=== PATIENT | female | born 1975 | race Caucasian/White ===

== ENCOUNTER → 2016-02-19 | Outpatient (CLI) | payer OTHER ==
[~2016-02-19] MED LIST: METO25TA3 PO; NORC5TAB PO; OSCA200T PO; OXYC1TAB63 PO; OYST250T4 PO; PANT40TA3 PO; PRED10 PO; PRED20 PO; TRIAM.1%T TOPICAL; VALT500T PO
--- NOTE | 2016-02-21 17:41 | HM ---
Date Performed: 02/19/2016 Time Performed: 09:28:00 HOOKUP DATE: 02/19/16 09:28:00 AM Wed ANALYSIS START TIME: 02/19/2016 9:33:00 AM ANALYSIS END TIME: 02/20/2016 8:15:40 AM PATIENT AGE: 40 PATIENT HEIGHT PATIENT WEIGHT DRUG LIST PATIENT DIAGNOSIS: SYNCOPE TEST NARRATIVE: The patient's average heart rate was 82 BPM. Heart rates greater than 120 B PM were noted < 1% of the time. No episodes of bradycardia were noted. No pauses exceeding 2.0 s econds were noted. 1 ventricular ectopics, which represented < 1% of the total beat count, were n oted. The highest ventricular ectopic frequency occurred from 05:00 AM to 06:00 AM Toyin. During this time 1 VE(s) occurred. Ventricular ectopics were observed as 1 isolated beat(s) only. No couplets or runs were noted. 3 supraventricular ectopics, which represented < 1% of the total beat count, were noted. The highest supraventricular ectopic frequency occurred from 07:00 PM to 08:00 PM Wed. During this time 1 SVE(s) occurred. No episodes of ST depression (defined as -1.0 mm or more) wer e noted in channel 1. No episodes of ST depression (defined as -1.0 mm or more) were noted in channe l 2. No episodes of ST depression (defined as -1.0 mm or more) were noted in channel 3. TEST INTERPRETATION: Predominant rhythm throughout was normal Sinus rhythm . There were occasional PACs and PVCs. No ventricular runs, pauses were atrial fibrillation and was a ppreciated No diary entries of any cardiac complaints were provided. Signed by : Martha Moser
== END ==
LOC: HCAV 09:13
PROVIDERS: ATTEND Family Medicine
DX: R55 Syncope and collapse (principal)
CPT/HCPCS: 93225; 93226

== ENCOUNTER 2016-03-12 20:24 | Inpatient (IN) | payer OTHER ==
[2016-03-12] MEDS ORDERED: traMADol HCL 50 MG TAB PO PRN (22:15)
[2016-03-12] MEDS ORDERED: methylPREDNISolone SOD SUCC 40 MG/1 ML VIAL IV PUSH ONE (22:15)
--- NOTE | 2016-03-12 22:19 | HHI.HP ---
HPI Service [facility] Hospitalists Primary Care Physician Tani Massey MD Admission Diagnosis Persistent dermatitis Chief Complaint: painful rash, failed outpt tx Travel History International Travel<30 Days: No Contact w/Intl Traveler <30 Da: No History of Present Illness 40 y.o. relatively healthy female presents for direct admit under direction of Dr Jaramillo who is familiar with pt and her recent illness/rash. Patient reportedly developed a rash approximately 1 week ago which started as a couple of small red spots on her left forearm. This rash spread and by this past Wednesday was noted to have significant clusters of erythema which were slightly painful. She was started on clindamycin and prednisone 40 mg a day by her primary care physician Dr. Paris. She notes that she had some improvement initially with lesions starting to dry somewhat but over the last 2 days the lesions have become more red and painful and swollen. She notes a burning type pain with even light touch from her clothing to the lesions. She notes that the lesions are on her upper arms upper chest and upper back and upper thighs primarily. She denies any new local exposures such as detergents, soaps, perfumes. No new clothing or jewelry. No new pet exposures. No tick exposure. No one in her home has similar lesions. She has some slight joint pains but no significant polyarthropathy. She tells me that her immunizations are all up-to-date that does not think she had chickenpox as a child. He has not noted any lesions in her mouth or around her perianal or groin areas. No vaginal discharge. She has had a low-grade fever of up to 100 on a few occasions over the last few days. No recent foreign travel. She did go to the [place] around the first of the year but others in her family did as well and they have no rashes noted. Review of Systems Constitutional: COMPLAINS OF: Fever, DENIES: Diaphoretic episodes, Fatigue, Weight gain, Weight loss, Chills, Dizziness, Change in appetite, Night Sweats Eyes: DENIES: Blurred vision, Diplopia, Eye inflammation, Eye pain, Vision loss , Photosensitivity, Double Vision Ears, nose, mouth, throat: DENIES: Tinnitus, Hearing loss, Vertigo, Nasal discharge, Oral lesions, Throat pain, Hoarseness, Ear Pain, Running Nose, Epistaxis, Sinus Pain, Toothache, Odynophagia Respiratory: DENIES: Apneas, Cough, Snoring, Wheezing, Hemoptysis, Sputum production, Shortness of breath Cardiovascular: DENIES: Chest pain, Palpitations, Syncope, Dyspnea on Exertion , PND, Lower Extremity Edema, Orthopnea, Claudication Gastrointestinal: DENIES: Abdominal pain, Black stools, Bloody stools, BRB per rectum, Constipation, Diarrhea, GERD, Nausea, Reflux, Vomiting, Difficulty Swallowing, Anorexia, See HPI Genitourinary: DENIES: Abnormal vaginal bleeding, Dysmenorrhea, Dyspareunia, Sexual dysfunction, Urinary frequency, Urinary incontinence, Urgency, Hematuria , Dysuria, Nocturia, Vaginal discharge Musculoskeletal: COMPLAINS OF: Joint pain, DENIES: Muscle aches, Stiffness, Joint Swelling, Back pain, Neck pain Integumentary: COMPLAINS OF: Pruritus, Rash, DENIES: Abnormal pigmentation, Nail changes, Breast masses, Breast skin changes, Nipple discharge Hematologic/lymphatic: DENIES: Bruising, Lymphadenopathy Immunologic/allergic: DENIES: Eczema, Urticaria Neurologic: DENIES: Abnormal gait, Headache, Localized weakness, Paresthesias, Seizures, Speech Problems, Tremor, Poor Balance Psychiatric: COMPLAINS OF: Anxiety Past Family Social History Past Medical History Lyme dz as young child. Denies ever having chicken pox. recent knee injury o/w essentially negative Past Surgical History none Reported Medications clindamycin prednisone started w/i last week Allergies: Coded Allergies: No Known Allergies (Unverified , 02/10/16) Family History n/c Social History No tobacco Occasional EtOH (once per month or less) No illicits , 3 young boys (ages 5, 4 and 2 1/2) moved to [facility] at age 20 from [place] Physical Exam Physical Exam GENERAL: This is a well-nourished, slightly obese, well-developed patient who appears mildly anxious SKIN: erythematous clusters of vesiculations on upper arms, upper chest, upper back and thighs...appears to spare abdomen, groin, lower back. No sloughing of skin. Areas are quite TTP. HEAD: Atraumatic. Normocephalic. No temporal or scalp tenderness. No oral lesions EYES: Pupils equal round and reactive. Extraocular motions intact. No scleral icterus. No injection or drainage. ENT: Nose without bleeding, purulent drainage or septal hematoma. Throat without erythema, tonsillar hypertrophy or exudate. Uvula midline. Airway patent. NECK: Trachea midline. No JVD or lymphadenopathy. Supple, nontender, no meningeal signs. CARDIOVASCULAR: Regular rate and rhythm without murmurs, gallops, or rubs. RESPIRATORY: Clear to auscultation. Breath sounds equal bilaterally. No wheezes , rales, or rhonchi. GASTROINTESTINAL: Abdomen soft, non-tender, nondistended. No hepato-splenomegaly , or palpable masses. No guarding. MUSCULOSKELETAL: Extremities without clubbing, cyanosis, or edema. Right knee with slight effusion and brace in place. No calf tenderness. NEUROLOGICAL: Awake and alert. Cranial nerves II through XII intact. Motor and sensory grossly within normal limits. Five out of 5 muscle strength in all muscle groups. Normal speech. Assessment and Plan Problem List: (1) Herpetiformis dermatitis Status: Acute Plan: ? etiology. Will obtain Tzanck prep from lesions on arms. Check studies for VZV, EBV, CMV. Start gabapentin, valtrex, steroid. Will use doxy for secondary infection prevention. (2) Right knee sprain Status: Acute Plan: continue brace and following with Dr Zaragoza Code Status full Discussed Condition With patient and nurse Sammy Mosher PhD Mar 12, 2016 22:19
[2016-03-12 22:30] LABS: BLOOD, URINE NEG (NEG); COMMENT (UR) CULT NOT INDICATED; CULTURE IF INDICATED CULT NOT INDICATED; GLUCOSE,URINE NEG (NEG); KETONE, URINE NEG (NEG); MUCUS URINE FEW /lpf (OCC); NITRITE,URINE NEG (NEG); PH, URINE 5.5 (5.0-8.5); SQUAMOUS EPITHELIAL CELL URINE 3 /hpf (0-5); URINE COLOR YELLOW (YELLW/STRAW)
[2016-03-12] MEDS ORDERED: LORazepam 1 MG TAB PO PRN (22:30)
[2016-03-13 00:14] VITALS: BP 105/57; PULSE 83; RESP 18; TEMP 98.4; O2SAT 95
[2016-03-13] MEDS: DOXYCYCLINE HYCLATE 100 MG CAP PO SCH ×3 (00:31→21:24)
[2016-03-13] MEDS: valACYclovir HCL 500 MG TAB PO SCH ×3 (00:31→21:25)
[2016-03-13 05:27] LABS: AUTOMATED NEUTROPHIL # 7.8 TH/MM3 (1.8-7.7); BASOPHIL # 0.1 TH/MM3 (0-0.2); BASOPHIL % 0.5 % (0.0-2.0); EOSINOPHIL # 0.2 TH/MM3 (0-0.4); EOSINOPHIL % 1.6 % (0.0-4.0); HEMATOCRIT 38.5 % (35.0-46.0); HEMO FLAGS DIFF FINAL; LYMPH % 16.6 % (9.0-44.0); LYMPHOCYTE # 1.7 TH/MM3 (1.0-4.8); MEAN CELL VOLUME 85.4 FL (80.0-100.0); MEAN CORPUSCULAR HEMOGLOBIN 30.2 PG (27.0-34.0); MEAN CORPUSCULAR HGB CONC 35.4 % (32.0-36.0); MONO % 3.8 % (0.0-8.0); NEUT % 77.5 % (16.0-70.0); PLATELET COUNT 274 TH/MM3 (150-450); RED BLOOD COUNT 4.51 MIL/MM3 (4.00-5.30); RED CELL DISTRIBUTION WIDTH 12.5 % (11.6-17.2); WHITE BLOOD COUNT 10.1 TH/MM3 (4.0-11.0)
[2016-03-13 05:57] LABS: ALKALINE PHOSPHATASE 79 U/L (45-117); ALT (GPT) 31 U/L (10-53); ANION GAP 7 MEQ/L (5-15); AST (GOT) 9 U/L (15-37); BICARBONATE 25.1 MEQ/L (21.0-32.0); BLOOD UREA NITROGEN 16 MG/DL (7-18); CHLORIDE 106 MEQ/L (98-107); GLOMERULAR FILTRATION RATE 70 ML/MIN (>89); POTASSIUM 4.1 MEQ/L (3.5-5.1); SODIUM (NA) 138 MEQ/L (136-145); TOTAL BILIRUBIN ADULT 0.4 MG/DL (0.2-1.0)
[2016-03-13] MEDS ORDERED: methylPREDNISolone SOD SUCC 125 MG/2 ML VIAL IV PUSH STA (07:17)
[2016-03-13] MEDS: GABAPENTIN 100 MG CAP PO SCH ×3 (08:07→18:18)
--- NOTE | 2016-03-13 08:09 | HHI.PR ---
Subjective Remarks Pt c/o severe pain primarily in shoulder where rash/blisters are present. she was admitted overnight after failed outpt rx of her rash/blisters she feels the lesions/blisters are progressing and new ones on her legs this AM Objective Vitals upper back with crops of vesicles/red base some nodular and maculopapular lesions which are red/inflammatory. the upper ext lesions currently are not vesicular/bullous but mostly papular and tender. she has some resolving macular lesions over ant neck some smaller nonvesicular/papular type lesions on arms/legs heart reg neck no jvd or bruits no oral mucosa or eye involvement. pt denies genital involvement. right knee brace. Vital Signs Date Time Temp Pulse Resp B/P Pulse Ox O2 Delivery O2 Flow Rate FiO2 03/13/16 00:14 98.4 83 18 105/57 95 Result Diagram: 03/13/16 0501 03/13/16 0501 A/P Problem List: (1) Rash and nonspecific skin eruption Status: Acute Plan: Pt developed rapidly progressive rash/blisters/bullae around 03/05-03/06 The rash involved the arms but progressed to ant chest/upper back and later thigh/legs. the lesions progressed and have had multiple forms. she has had areas of smaller vesicles clustered on red base. some areas initially of larger blisters or small bullae that ruptured. no sloughing sking or oral/eye lesions. she had larger tender welt like or nodular erythematous lesion over upper back that later became more target like. no pustules identified -she failed outpt therapy with bendadryl/prednisone/clinda. -extensive hx taken and no clear culprit. no meds, diseases, exposures, or pertinent travel -The working dx is likely viral(herpetic..?varicella)..leading to erythema multiforme. admit for iv steroids. cont emperic abx to cover skin ca-mrsa as some lesions may have been secondarily infected. valtrex was ordered as some lesions appear to be in the herpes family. pt with no hx varicella. gabapentin for severe pain that seems neuropathic a lesion was scraped by nursing and sent for herpes viral cx. and serology for varicella/ebv/cmv was sent last night esr and tsh ordered. gustavo also. prn pain control long talk with pt/. they agreed to proceed with skin punch bx. this was performed by 5mm punch and suture placed left arm by dr Urbina. observe for improvement. Bay Jaramillo MD Mar 13, 2016 08:09
[2016-03-13 08:15] VITALS: BP 105/74; PULSE 76; RESP 20; TEMP 97.7; O2SAT 95
[2016-03-13] MEDS ORDERED: ONDANSETRON HCL 4 MG/2 ML VIAL IV PUSH PRN (08:15)
[2016-03-13] MEDS ORDERED: CALAMINE LOTION 180 APPLIC/180 ML BTL TOPICAL SCH (09:00)
[2016-03-13 11:53] VITALS: BP 108/64; PULSE 105; RESP 20; TEMP 98.1; O2SAT 95
[2016-03-13] MEDS: methylPREDNISolone SOD SUCC 125 MG/2 ML VIAL IV PUSH SCH ×3 (13:39→23:52)
[2016-03-13] MEDS: ACETAMINOPHEN/HYDROcodone 325 MG/5 MG TAB PO PRN ×2 (13:40→23:51)
[2016-03-13] MEDS ORDERED: LIDOCAINE 0.5%/EPINEPHrine 1:200,000 SOLN 50 ML VIAL INFIL ONE (14:30)
[2016-03-13 16:05] VITALS: BP_SYST 112; BP_SYST 114; BP_SYST 140; BP_DIAS 63; BP_DIAS 65; BP_DIAS 74; PULSE 112; RESP 20; TEMP 98.4; O2SAT 95
--- NOTE | 2016-03-13 17:23 | RADRPT ---
EXAM DATE/TIME: 03/13/2016 16:50 [facility] COMPARISON: No previous studies available for comparison. INDICATIONS : Vertigo. TIA. MEDICAL HISTORY : None. SURGICAL HISTORY : None. ENCOUNTER: Initial ACUITY: 2 day PAIN SCORE: 0/10 LOCATION: Head TECHNIQUE: Multiplanar, multisequence MRI of the brain was performed without contrast. FINDINGS: CEREBRUM: The ventricles are normal for age. No evidence of midline shift, mass lesion, hemorrhage or acute in farction. No extraaxial fluid collections are seen. The pituitary gland and suprasellar cistern are normal in configuration. WHITE MATTER: No significant signal abnormalities are seen in the white matter. POSTERIOR FOSSA: The cerebellum and brainstem are intact. The 4th ventricle is midline. The cerebellopontine angle is unremarkable. The cerebellar tonsils are normal in position. DIFFUSION IMAGING: No focal areas of restricted diffusion are seen. No evidence of acute infarction. EXTRACRANIAL: The visualized portions of the orbits and paranasal sinuses are unremarkable. CONCLUSION: 1. No acute intracranial abnormality identified. Los Wren MD on March 13, 2016 at 17:18 Board Certified Radiologist. This report was verified electronically.
[2016-03-13 20:00] VITALS: PULSE 91
[2016-03-13 20:17] VITALS: BP 125/66; PULSE 92; RESP 19; TEMP 98; O2SAT 95
[2016-03-14] VITALS (7 sets, daily range): BP systolic 95–112; BP diastolic 54–70; PULSE 68–97; RESP 12–20; TEMP 97.4–99.1; O2SAT 94–98
[2016-03-14 04:30] LABS: BICARBONATE 24.4 MEQ/L (21.0-32.0); POTASSIUM 4.5 MEQ/L (3.5-5.1)
[2016-03-14] MEDS: methylPREDNISolone SOD SUCC 125 MG/2 ML VIAL IV PUSH SCH ×3 (07:27→16:55)
[2016-03-14] MEDS: DOXYCYCLINE HYCLATE 100 MG CAP PO SCH (08:14)
[2016-03-14] MEDS: GABAPENTIN 300 MG CAP PO SCH ×3 (08:14→16:54)
[2016-03-14] MEDS: valACYclovir HCL 500 MG TAB PO SCH ×2 (08:14→20:18)
[2016-03-14 08:53] LABS: EBV VCA IgM Negative (Negative)
--- NOTE | 2016-03-14 11:38 | HHI.PR ---
Subjective Remarks seems to feel better this AM. less aching in shoulders and thighs. slept well overnight. no n/v/d reported. no fever/chills reported. Objective Vitals upper back with crops of vesicles/red base improved some nodular and maculopapular lesions which are red/inflammatory. the upper ext lesions currently are not vesicular/bullous but mostly papular and tender. she has some resolving macular lesions over ant neck some smaller nonvesicular/papular type lesions on arms/legs heart reg neck no jvd or bruits no oral mucosa or eye involvement. pt denies genital involvement. right knee brace. Result Diagram: 03/13/16 0501 03/14/16 0351 A/P Problem List: (1) Rash and nonspecific skin eruption Status: Acute Plan: Pt developed rapidly progressive rash/blisters/bullae around 03/05-03/06 The rash involved the arms but progressed to ant chest/upper back and later thigh/legs. the lesions progressed and have had multiple forms. she has had areas of smaller vesicles clustered on red base. some areas initially of larger blisters or small bullae that ruptured. no sloughing skin or oral/eye mucosa lesions. she had larger tender welt like or nodular erythematous lesion over upper back that later became more target like. no pustules identified -she failed outpt therapy with bendadryl/prednisone/clinda. -extensive hx taken and no clear culprit. no meds, diseases, exposures, or pertinent travel -gustavo negative -The working dx is likely viral(herpetic..?varicella)..leading to erythema multiforme. admitted for iv steroids. cont emperic abx to cover skin ca-mrsa as some lesions may have been secondarily infected. valtrex was ordered as some lesions appear to be in the herpes family. pt with no hx varicella. gabapentin for severe pain that seems neuropathic will add topical medium potency steroid ointment a lesion was scraped by nursing and sent for herpes viral cx. and serology for varicella/ebv/cmv at time of admission prn pain control punch bx left arm lesion 03/13 pending (2) Transient neurologic deficit Status: Acute Plan: Pt and report a recent hx of episodes of blank staring/ unresponsiveness and even apparent syncope at times. she has had some intermittent h/a's. she does describe intermittent palpitations but may or may not correlate with the neurological events. During my evaluation 03/13 pt had a brief episode. while lying back in her hospital bed.. she stopped talking and her head drooped down and to the right. she was nonverbal when I repeatedly asked her to respond. some tears in her eyes. this lasted for about 30-60 seconds. when she finally began to respond she says that she heard everything but was unable to formulate a verbal response. I witnessed no obvious convulsion or eye fluttering. no post ictal sx's. she had recent holter by pcp to evaluate this. this was read as mostly sinus with pac's/pvcs mri head last night was negative eeg pending. orthostatics negative pt/ inquired about tilt table test tele: overnight around 11pm she had alot of tachycardia on the monitor. I questioned svt/aflutter. I reviewed with strips with [facility] digital media producer and only felt to be sinus/atrial tach. Bay Jaramillo MD Mar 14, 2016 11:38
[2016-03-14] MEDS ORDERED: TRIAMCINOLONE ACETONIDE 0.1% OINT 15 GM TUBE TOPICAL ONE (14:00)
[2016-03-14] MEDS: TRIAMCINOLONE ACETONIDE 0.1% OINT 15 GM TUBE TOPICAL SCH (16:56)
--- NOTE | 2016-03-14 17:48 | MG ---
cc: EDD ATKINSON M.D. Lab No: Date: 03/14/2016 Age: 40 Sex: F Race: REQUESTING PHYSICIAN: Dr. Jaramillo. HISTORY: An EEG was obtained on this 40-year-old patient with history of episodic unresponsiveness and possible seizures. MEDICATIONS: 1. Solu-Medrol. 2. Meade. 3. . 4. Valtrex. DESCRIPTION OF THE RECORD: The patient is initially awake and there is a combination of alpha and beta rhythms. The background rhythms are symmetrical and reactive. The patient enters sleep and there is some theta activity and more widespread beta rhythms. Hyperventilation disclosed no significant change. Later on there is sleep stage II. Sleep spindles and K complexes noted. Photic stimulation unremarkable. INTERPRETATION: Normal awake and light asleep EEG. Edd Atkinson MD [facility] /5:39 PM /5:44 PM
[2016-03-14] MEDS: ENOXAPARIN SODIUM 40 MG/0.4 ML SYRINGE SQ SCH (20:18)
[2016-03-15] VITALS: BP_SYST 101; BP_SYST 117; BP_DIAS 56; BP_DIAS 58; PULSE 83; PULSE 95; RESP 18; RESP 20; TEMP 98.2; TEMP 98.3; O2SAT 95; O2SAT 96
[2016-03-15] MEDS: methylPREDNISolone SOD SUCC 125 MG/2 ML VIAL IV PUSH SCH ×4 (00:12→18:17)
[2016-03-15] MEDS: ACETAMINOPHEN/HYDROcodone 325 MG/5 MG TAB PO PRN ×2 (00:13→16:19)
[2016-03-15] MEDS: TRIAMCINOLONE ACETONIDE 0.1% OINT 15 GM TUBE TOPICAL SCH ×4 (00:15→18:00)
[2016-03-15] MEDS: valACYclovir HCL 500 MG TAB PO SCH ×2 (07:52→21:45)
[2016-03-15] MEDS: GABAPENTIN 300 MG CAP PO SCH ×3 (07:52→18:16)
[2016-03-15 08:00] VITALS: BP 120/72; PULSE 86; RESP 14; TEMP 98.1; O2SAT 96
[2016-03-15 12:00] VITALS: BP 110/68; PULSE 78; RESP 16; TEMP 98.4; O2SAT 97
--- NOTE | 2016-03-15 15:16 | HHI.PR ---
Subjective Remarks shoulder lesions seem better with ointment. says feels new lesions on post arms and maybe thighs Objective Vitals upper back with crops of vesicles/red base improved some maculopapular lesions which are red/inflammatory seem better the upper ext lesions currently are not vesicular/bullous but mostly papular and tender. she has some resolving macular lesions over ant neck some smaller nonvesicular/papular type lesions on arms/legs heart reg neck no jvd or bruits no oral mucosa or eye involvement. pt denies genital involvement. right knee brace. Vital Signs Date Time Temp Pulse Resp B/P Pulse Ox O2 Delivery O2 Flow Rate FiO2 03/15/16 12:00 98.4 78 16 110/68 97 03/15/16 08:00 98.1 86 14 120/72 96 03/15/16 00:00 98.2 95 18 101/56 96 03/14/16 20:03 86 03/14/16 20:00 97.4 95 18 112/68 95 03/14/16 16:00 99.1 80 14 112/59 95 03/14/16 03/14/16 03/15/16 15:00 23:00 07:00 Intake Total 1200 ml 360 ml 240 ml Output Total 400 ml Balance 1200 ml 360 ml -160 ml Intake Oral 1200 ml 360 ml 240 ml IV Total 0 ml Output Urine Total 400 ml # Voids 6 1 # Bowel Movements 0 0 0 Result Diagram: 03/13/16 0501 03/14/16 0351 A/P Problem List: (1) Rash and nonspecific skin eruption Status: Acute Plan: Pt developed rapidly progressive rash/blisters/bullae around 03/05-03/06 The rash involved the arms but progressed to ant chest/upper back and later thigh/legs. the lesions progressed and have had multiple forms. she has had areas of smaller vesicles clustered on red base. some areas initially of larger blisters or small bullae that ruptured. no sloughing skin or oral/eye mucosa lesions. she had larger tender welt like or nodular erythematous lesion over upper back that later became more target like. no pustules identified -she failed outpt therapy with bendadryl/prednisone/clinda. -extensive hx taken and no clear culprit. no meds, diseases, exposures, or pertinent travel -gustavo negative -The working dx is likely viral(herpetic..?varicella)..leading to erythema multiforme. admitted for iv steroids. d/c emperic abx to cover skin ca-mrsa. currently no obvious bacterial superinfection valtrex was ordered as some lesions appear to be in the herpes family. pt with no hx varicella. gabapentin for severe pain that seems neuropathic added topical medium potency steroid ointment...seems to be working. will observe a lesion was scraped by nursing and sent for herpes viral cx. and serology for varicella/ebv/cmv at time of admission prn pain control punch bx left arm lesion 03/13 pending recheck later today.....will plan for d/c later today or in AM...will call her pcp for f/u. (2) Transient neurologic deficit Status: Acute Plan: Pt and report a recent hx of episodes of blank staring/ unresponsiveness and even apparent syncope at times. she has had some intermittent h/a's. she does describe intermittent palpitations but may or may not correlate with the neurological events. During my evaluation 03/13 pt had a brief episode. while lying back in her hospital bed.. she stopped talking and her head drooped down and to the right. she was nonverbal when I repeatedly asked her to respond. some tears in her eyes. this lasted for about 30-60 seconds. when she finally began to respond she says that she heard everything but was unable to formulate a verbal response. I witnessed no obvious convulsion or eye fluttering. no post ictal sx's. she had recent holter by pcp to evaluate this. this was read as mostly sinus with pac's/pvcs mri head was negative eeg no epileptiform waves orthostatics negative pt/ inquired about tilt table test. if sx's persist she could be referred to [facility] cardiology tele: over past 48hr has shows muliple periods of tachycardia..?could be just sinus tach but svt/aflutter were questioned.. I reviewed with strips with [facility] sales development consultant and only felt to be sinus/atrial tach. will request consult prior to d/c ?neurocognitive sx's related to mental stress (3) Tachycardia Status: Acute Plan: pt has had multiple periods of tachycardia up to 150 this seems to occur even at rest could be sinus tach but I questioned if could be underying aflutter/svt will request cardiology evaluate in AM prior to d/c given her recent c/o intermittent dizziness and even syncope. (4) Right knee sprain Status: Chronic Plan: pt fell off skateboard. has dx of right knee sprain. follows with dr Zaragoza has right knee brace Bay Jaramillo MD Mar 15, 2016 15:16
[2016-03-15 16:00] VITALS: BP 108/64; PULSE 76; RESP 14; TEMP 97.9; O2SAT 98
[2016-03-15 19:46] VITALS: PULSE 80
[2016-03-15 20:00] VITALS: BP 116/63; PULSE 82; RESP 20; TEMP 98.4; O2SAT 98
[2016-03-15] MEDS: ENOXAPARIN SODIUM 40 MG/0.4 ML SYRINGE SQ SCH (21:45)
--- NOTE | 2016-03-15 23:48 | RADRPT ---
EXAM DATE/TIME: 03/15/2016 22:09 [facility] COMPARISON: No previous studies available for comparison. INDICATIONS : Right leg swelling and pain. MEDICAL HISTORY : . Right knee injury. Anxiety. Skin rash. SURGICAL HISTORY : None. ENCOUNTER: Initial ACUITY: 1 day PAIN SCORE: 4/10 LOCATION: Right leg. TECHNIQUE: Venous ultrasound of the leg was performed from the inguinal ligament to the proximal calf. Real-shweta e, color Doppler and spectral tracing, compression and augmentation techniques were used. FINDINGS: There is normal compressibility of the deep venous system from the inguinal region to the proximal ca lf. No echogenic clot is seen in the lumen of the common femoral, femoral, popliteal, and posterior tibial veins. There is a normal response of the venous system to proximal and distal augmentation an d respiration. CONCLUSION: No DVT of the right lower extremity. Rob Mckeon MD on March 15, 2016 at 23:46 Board Certified Radiologist. This report was verified electronically.
[2016-03-16] VITALS: BP 117/58; PULSE 83; RESP 20; TEMP 98.3; O2SAT 95
[2016-03-16] MEDS: methylPREDNISolone SOD SUCC 125 MG/2 ML VIAL IV PUSH SCH ×3 (01:07→06:26)
[2016-03-16] MEDS: TRIAMCINOLONE ACETONIDE 0.1% OINT 15 GM TUBE TOPICAL SCH ×4 (01:09→18:22)
[2016-03-16] MEDS: GABAPENTIN 300 MG CAP PO SCH ×2 (08:14→13:29)
[2016-03-16] MEDS: predniSONE 10 MG TAB PO SCH ×2 (08:14→20:30)
[2016-03-16] MEDS: valACYclovir HCL 500 MG TAB PO SCH ×2 (08:14→20:30)
[2016-03-16 09:12] VITALS: BP 113/64; PULSE 64; RESP 16; TEMP 97.9; O2SAT 96
--- NOTE | 2016-03-16 10:03 | HHI.PR ---
Subjective Remarks rash seems to be improving felt dizzy yesterday on way back [place] and fell into bed striking her right knee. montitor around that time showed tachycardia around 150 Objective Vitals upper back with crops of vesicles/red base improved some maculopapular lesions which are red/inflammatory seem better the upper ext lesions currently are not vesicular/bullous but mostly papular and tender. she has some resolving macular lesions over ant neck some smaller nonvesicular/papular type lesions on arms/legs heart reg neck no jvd or bruits no oral mucosa or eye involvement. pt denies genital involvement. right knee brace. Result Diagram: 03/13/16 0501 03/14/16 0351 A/P Problem List: (1) Rash and nonspecific skin eruption Status: Acute Plan: Pt developed rapidly progressive rash/blisters/bullae around 03/05-03/06 The rash involved the arms but progressed to ant chest/upper back and later thigh/legs. the lesions progressed and have had multiple forms. she has had areas of smaller vesicles clustered on red base. some areas initially of larger blisters or small bullae that ruptured. no sloughing skin or oral/eye mucosa lesions. she had larger tender welt like or nodular erythematous lesion over upper back that later became more target like. no pustules identified -she failed outpt therapy with bendadryl/prednisone/clinda. -extensive hx taken and no clear culprit. no meds, diseases, exposures, or pertinent travel -gustavo negative -The working dx is likely viral(herpetic..?varicella)..leading to erythema multiforme. overall seems to be improving. admitted for iv steroids. d/c emperic abx to cover skin ca-mrsa. currently no obvious bacterial superinfection convert iv to po steroids today and taper valtrex was ordered as some lesions appear to be in the herpes family. pt with no hx varicella. gabapentin for severe pain that seems neuropathic ...will likely stop on discharge added topical medium potency steroid ointment...seems to be working. will continue on discharge. a lesion was scraped by nursing and sent for herpes viral cx. and serology for varicella/ebv/cmv at time of admission prn pain control punch bx left arm lesion 03/13 pending. discussed with pathologist and probably can give me prelim tomorrow. (2) Transient neurologic deficit Status: Acute Plan: Pt and report a recent hx of episodes of blank staring/ unresponsiveness and even apparent syncope at times. she has had some intermittent h/a's. she does describe intermittent palpitations but may or may not correlate with the neurological events. During my evaluation 03/13 pt had a brief episode. while lying back in her hospital bed.. she stopped talking and her head drooped down and to the right. she was nonverbal when I repeatedly asked her to respond. some tears in her eyes. this lasted for about 30-60 seconds. when she finally began to respond she says that she heard everything but was unable to formulate a verbal response. I witnessed no obvious convulsion or eye fluttering. no post ictal sx's. she had recent holter by pcp to evaluate this. this was read as mostly sinus with pac's/pvcs mri head was negative eeg no epileptiform waves orthostatics negative pt/ inquired about tilt table test. if sx's persist she could be referred to [facility] cardiology tele: over past 48hr has shows muliple periods of tachycardia..?could be just sinus tach but svt/aflutter were questioned.. I reviewed with strips with [facility] range ecologist and only felt to be sinus/atrial tach.reqeusted consultation. ?neurocognitive sx's related to mental stress (3) Tachycardia Status: Acute Plan: pt has had multiple periods of tachycardia up to 150 and symptomatic this seems to occur even at rest pt seen by Dr Leon. he believes she has svt and will advise trial of low dose metoprolol 12.5mg bid. outpt event monitor x 7 days. consideration for referral to EP cardiology if avnrt suspected. (4) Right knee sprain Status: Chronic Plan: pt fell off skateboard. has dx of right knee sprain. follows with dr Zaragoza has right knee brace Bay Jaramillo MD Mar 16, 2016 10:03 with pac's/pvcs mri head was negative eeg no epileptiform waves orthostatics negative pt/ inquired about tilt table test. if sx's persist she could be referred to [facility] cardiology tele: over past 48hr has shows muliple periods of tachycardia..?could be just sinus tach but svt/aflutter were questioned.. I reviewed with strips with [facility] range ecologist and only felt to be sinus/atrial tach. will request consult prior to d/c ?neurocognitive sx's related to mental stress (3) Tachycardia Status: Acute Plan: pt has had multiple periods of tachycardia up to 150 this seems to occur even at rest could be sinus tach but I questioned if could be underying aflutter/svt will request cardiology evaluate in AM prior to d/c given her recent c/o intermittent dizziness and even syncope. (4) Right knee sprain Status: Chronic Plan: pt fell off skateboard. has dx of right knee sprain. follows with dr Zaragoza has right knee brace Bay Jaramillo MD Mar 16, 2016 10:03
[2016-03-16] MEDS ORDERED: METOPROLOL TARTRATE 25 MG TAB PO ONE (10:15)
[2016-03-16] MEDS ORDERED: PILL SPLITTER OTHER PRN (10:15)
--- NOTE | 2016-03-16 10:49 | EKG ---
Date Performed: 03/16/2016 Time Performed: 10:14:00 PTAGE: 40 years EKG: SINUS TACHYCARDIA NONSPECIFIC ST & T-WAVE ABNORMALITY ABNORMAL RHYTHM ECG PREVIOUS TRACING : 07/06/2011 20.03 Compared to previous tracing, nonspecific ST/T changes are now evident. DOCTOR: Angus Lay Interpretating Date/Time 03/16/2016 10:47:27
[2016-03-16 12:28] VITALS: BP 125/57; PULSE 97; RESP 18; TEMP 96.9; O2SAT 97
--- NOTE | 2016-03-16 14:28 | MB ---
cc: PAUL CAPONE MD DATE OF CONSULTATION: 03/16/2016 REASON FOR CONSULTATION Syncope. HISTORY OF PRESENT ILLNESS This is a very nice 40-year-old female who initially presented with a rash which started about one week ago on the left forearm. She had been treated with steroids and antibiotics on an outpatient basis. The lesions were becoming more painful and swollen so she came into the hospital and had a low grade fever. Diagnostic work-up was initiated in addition to antibiotic. She had apparently has had several episodes at home of presyncope/ syncope. She also reports intermittent episodes of palpitations. While on telemetry during her hospitalization here it was noted on some occasions a dramatic spike in her heart rate up to anywhere from 130-150 beats per minute. She was symptomatic during that time with palpitations. She also had one episode where she was not responding appropriately almost like absence seizure-type behavior. Unfortunately we were not able to correlate whether she was in the arrhythmia at the time of her symptoms. We were consulted for further recommendations. PAST MEDICAL HISTORY Lyme disease as a child. PAST SURGICAL HISTORY None. MEDICATIONS Medications at home: 1. Clindamycin. 2. Prednisone. ALLERGIES No known drug allergies. SOCIAL HISTORY Denies alcohol, tobacco or drug use. FAMILY HISTORY Denies any family history of early coronary artery disease or sudden cardiac . REVIEW OF SYSTEMS A 12-point review of systems was performed and negative unless otherwise noted in the history of present illness. PHYSICAL EXAMINATION VITAL SIGNS: Temperature 97, pulse 64, blood pressure 113/64 mmHg. GENERAL: Alert and oriented x3, in no acute distress. HEENT: Pupils reactive to light and accommodation. Extraocular movements are intact. NECK: No jugular venous distention. No thyromegaly. No lymphadenopathy. No carotid bruits. LUNGS: Clear to auscultation bilaterally. CARDIOVASCULAR: Regular rate and rhythm without murmurs, rubs or gallops. ABDOMEN: Nontender, nondistended. Good bowel sounds. No hepatosplenomegaly. EXTREMITIES: No clubbing, cyanosis or edema. Good peripheral pulses. NEUROLOGIC: Cranial nerves intact. Motor and sensory grossly intact. LABORATORY WBC 10.0, hemoglobin 13.6, platelet count 274. Sodium 137, potassium 4.5, chloride 106, bicarb 24, BUN 13, creatinine 0.79. Free T4 0.95. ASSESSMENT 1. Tachycardia, narrow complex, regular. 2. Skin rash 3. Syncope. PLAN We reviewed the telemetry in detail. She has a few ectopic atrial beats intermittent. Her prior Holter back on February 20 did not show any sustained sort of arrhythmias, then she has an abrupt onset of a narrow complex tachycardia. There is no clear flutter waves. Also appears to be sinus, although with such a steep heart rate initiation and decline it is a little less likely to be so. Additionally, at that time she was just comfortable, lying in bed. Could be an atrial tachycardia or a long RP, AVRT, SVT. Will get an EKG to look for any delta wave, although could be antidromic conduction. For right now I think it is reasonable to initiate a low-dose beta tina. I have discussed Valsalva maneuvers with her. Will get a seven-day event monitor as an outpatient. If she has any further episodes we may need to refer her to electrophysiology for possible reentrant tachycardia and consideration of possible ablation. MD GIAN Borjas/ISIDRO /10:06 AM /2:08 PM ENZO
--- NOTE | 2016-03-16 14:46 | EC ---
Study Study Date:03/16/2016 STUDY CONCLUSIONS SUMMARY LEFT VENTRICLE: The cavity size was normal. Wall thickness was normal. Systolic function was normal. The estimated ejection fraction was in the range of 55% to 60%. Wall motion was normal; there were no regional wall motion abnormalities. If LV function is below 40, please consider prescribing an ACEI or ARB or document rationale for non-use. PROCEDURE DATA STUDY STATUS: Elective. Procedure: Transthoracic echocardiography. Image quality was good. Scanning was performed from the parasternal, apical, and subcostal acoustic windows. Study completion: The patient tolerated the procedure well. Transthoracic echocardiography. M-mode, complete 2D, complete spectral Doppler, and color Doppler. Patient status: Inpatient. CARDIAC ANATOMY LEFT VENTRICLE: The cavity size was normal. Wall thickness was normal. Systolic function was normal. The estimated ejection fraction was in the range of 55% to 60%. Wall motion was normal; there were no regional wall motion abnormalities. AORTIC VALVE: Trileaflet; normal thickness leaflets. Doppler: Transvalvular velocity was within the normal range. There was no stenosis. No regurgitation. AORTA: Aortic root: The aortic root was normal in size. MITRAL VALVE: Structurally normal valve. Doppler: Transvalvular velocity was within the normal range. There was no evidence for stenosis. No regurgitation. Peak gradient: 4mm Hg (D). LEFT ATRIUM: The atrium was normal in size. RIGHT VENTRICLE: The cavity size was normal. Wall thickness was normal. PULMONIC VALVE: Doppler: Transvalvular velocity was within the normal range. There was no evidence for stenosis. No regurgitation. TRICUSPID VALVE: Structurally normal valve. Doppler: Transvalvular velocity was within the normal range. No regurgitation. PULMONARY ARTERY: The main pulmonary artery was normal-sized. Systolic pressure was within the normal range. RIGHT ATRIUM: The atrium was normal in size. PERICARDIUM: There was no pericardial effusion. SYSTEMIC VEINS: Inferior vena cava: The vessel was normal in size. BASIC MEASUREMENTS ADULT NORMAL Left ventricle LV internal dimension, ED, chordal level, 45.6 mm 43-52 PLAX LV posterior wall thickness, ED 8.85 mm IVS/LVPW ratio, ED 1.18 <1.3 Ventricular septum Septal thickness, ED 10.4 mm Aortic valve Leaflet separation 19 mm 15-26 Left atrium Anterior-posterior dimension 29 mm Right ventricle RV internal dimension, ED, PLAX 20.4 mm 19-38 BASIC MEASUREMENTS ADULT NORMAL Aortic valve Leaflet separation 19 mm 15-26 Aorta Root diameter, ED 31 mm 20-37 DOPPLER MEASUREMENTS ADULT NORMAL Mitral valve Peak E-wave velocity 94.8 cm/s Peak A-wave velocity 70.1 cm/s Peak gradient, D 4 mm Hg Peak E/A ratio 1.4 Tricuspid valve Regurgitant peak velocity 147 cm/s Peak RV-RA gradient, S 9 mm Hg Maximal regurgitant velocity 147 cm/s LEGEND: Mean values are shown as u=mean value. Asterisk (*) dean values outside specified normal range. Prepared and signed by Justin Leon [id number]
[2016-03-16 20:00] VITALS: BP 129/63; PULSE 83; RESP 18; TEMP 96.4; O2SAT 95
[2016-03-16] MEDS: ENOXAPARIN SODIUM 40 MG/0.4 ML SYRINGE SQ SCH (20:30)
[2016-03-16] MEDS: METOPROLOL TARTRATE 25 MG TAB PO SCH (20:30)
[2016-03-16 23:00] VITALS: PULSE 114
[2016-03-17] VITALS (7 sets, daily range): BP systolic 95–136; BP diastolic 50–84; PULSE 60–82; RESP 16–18; TEMP 97.2–98; O2SAT 93–97
[2016-03-17] MEDS: TRIAMCINOLONE ACETONIDE 0.1% OINT 15 GM TUBE TOPICAL SCH ×4 (00:09→18:00)
--- NOTE | 2016-03-17 09:02 | HHI.PR ---
Subjective Remarks rash feels much better. has intermittent palpitations. Objective Vitals heart reg lung cta abd s/nt ext no edema rash over shoulder/ant neck/arms/thigh/legs much improved. no further bullae or blisters. erythematous maculopapular rash improving. no drainage. left arm bx site sutured. Vital Signs Date Time Temp Pulse Resp B/P Pulse Ox O2 Delivery O2 Flow Rate FiO2 03/17/16 04:00 97.9 65 18 95/50 95 03/17/16 00:00 97.8 71 18 102/55 95 03/16/16 23:00 114 03/16/16 20:00 96.4 83 18 129/63 95 03/16/16 12:28 96.9 97 18 125/57 97 03/16/16 09:12 97.9 64 16 113/64 96 03/16/16 03/16/16 03/17/16 15:00 23:00 07:00 Intake Total 460 ml 320 ml 480 ml Output Total 700 ml 800 ml Balance -240 ml 320 ml -320 ml Intake Oral 460 ml 320 ml 480 ml IV Total 0 ml Output Urine Total 700 ml 800 ml # Voids 1 # Bowel Movements 1 1 0 Result Diagram: 03/13/16 0501 03/14/16 0351 A/P Problem List: (1) Rash and nonspecific skin eruption Status: Acute Plan: Pt developed rapidly progressive rash/blisters/bullae around 03/05-03/06 The rash involved the arms but progressed to ant chest/upper back and later thigh/legs. the lesions progressed and have had multiple forms. she has had areas of smaller vesicles clustered on red base. some areas initially of larger blisters or small bullae that ruptured. no sloughing skin or oral/eye mucosa lesions. she had larger tender welt like or nodular erythematous lesion over upper back that later became more target like. no pustules identified -she failed outpt therapy with bendadryl/prednisone/clinda. -extensive hx taken and no clear culprit. no meds, diseases, exposures, or pertinent travel -gustavo negative -The working dx is likely viral or varicella...leading to erythema multiforme. overall seems to be improving. admitted for iv steroids. currently converted to po steroid taper stopped emperic abx to cover skin ca-mrsa. currently no obvious bacterial superinfection valtrex was ordered as some lesions appear to be in the herpes family. gabapentin for severe pain that seems neuropathic ...stop added topical medium potency steroid ointment...seems to be working. will continue on discharge. a lesion was scraped by nursing and sent for herpes viral cx. this is pending. Her varicella igM positive giving the impression of recent exposure/ infection..which correlates with her clinical picture punch bx left arm lesion 03/13 pending. discussed with pathologist. so far nonspecific but sending out to dermpath. doctor. (2) SVT (supraventricular tachycardia) Status: Acute Plan: pt has had multiple periods of tachycardia up to 150 and symptomatic this seems to occur even at rest She also has in morning alot of gaetano down to high 30s or low 40s discussed with Dr Leon and appears to be svt. bp at present will not support raising the metoprolol Discussed with dr Leon who advises EP consult prior to d/c consult DR Gilbert (3) Transient neurologic deficit Status: Acute Plan: Pt and report a recent hx of episodes of blank staring/ unresponsiveness and even apparent syncope at times. she has had some intermittent h/a's. she does describe intermittent palpitations but may or may not correlate with the neurological events. During my evaluation 03/13 pt had a brief episode. while lying back in her hospital bed.. she stopped talking and her head drooped down and to the right. she was nonverbal when I repeatedly asked her to respond. some tears in her eyes. this lasted for about 30-60 seconds. when she finally began to respond she says that she heard everything but was unable to formulate a verbal response. I witnessed no obvious convulsion or eye fluttering. no post ictal sx's. she had recent holter by pcp to evaluate this. this was read as mostly sinus with pac's/pvcs mri head was negative eeg no epileptiform waves orthostatics negative pt/ inquired about tilt table test. if sx's persist she could be referred to [facility]ology tele: reveals apparent svt ?flutter...periods of gaetano. see svt section. ?neurocognitive sx's related to mental stress (4) Varicella Status: Acute Plan: see above (5) Right knee sprain Status: Chronic Plan: pt fell off skateboard. has dx of right knee sprain. follows with dr Zaragoza has right knee brace Bay Jaramillo MD Mar 17, 2016 09:02
[2016-03-17] MEDS: predniSONE 10 MG TAB PO SCH ×2 (09:06→20:18)
[2016-03-17] MEDS: METOPROLOL TARTRATE 25 MG TAB PO SCH ×2 (09:07→20:18)
[2016-03-17] MEDS: valACYclovir HCL 500 MG TAB PO SCH ×2 (09:07→20:18)
--- NOTE | 2016-03-17 10:25 | PD.CARD.PN ---
Subjective Subjective Remarks symptomatically feels well tachycardia again this am HR 40's overnight and 150 bpm early this am Objective Medications Active Medications Metoprolol Tartrate (Lopressor) 12.5 mg Q12HR PO Last administered on 03/17/16t 09:07; Admin Dose 12.5 MG; Start 03/16/16 at 21:00 Vital Signs / I&O Vital Signs Date Time Temp Pulse Resp B/P Pulse Ox O2 Delivery O2 Flow Rate FiO2 03/17/16 08:00 97.5 64 18 124/64 94 03/17/16 04:00 97.9 65 18 95/50 95 03/17/16 00:00 97.8 71 18 102/55 95 03/16/16 23:00 114 03/16/16 20:00 96.4 83 18 129/63 95 03/16/16 12:28 96.9 97 18 125/57 97 I/O 03/16/16 03/16/16 03/16/16 03/17/16 03/17/16 03/17/16 07:00 15:00 23:00 07:00 15:00 23:00 Intake Total 240 ml 460 ml 320 ml 480 ml Output Total 600 ml 700 ml 800 ml Balance -360 ml -240 ml 320 ml -320 ml Intake Oral 240 ml 460 ml 320 ml 480 ml IV Total 0 ml Output Urine Total 600 ml 700 ml 800 ml # Voids 1 # Bowel Movements 0 1 1 0 Physical Exam GENERAL: SKIN: Warm and dry. HEAD: Normocephalic. EYES: No scleral icterus. No injection or drainage. NECK: Supple, trachea midline. No JVD or lymphadenopathy. CARDIOVASCULAR: Regular rate and rhythm without murmurs, gallops, or rubs. RESPIRATORY: Breath sounds equal bilaterally. No accessory muscle use. GASTROINTESTINAL: Abdomen soft, non-tender, nondistended. MUSCULOSKELETAL: No cyanosis, or edema. BACK: Nontender without obvious deformity. No CVA tenderness. Imaging Last Impressions Lower Extremity Ultrasound 03/15/16 0000 Signed Impressions: Service Date/Time: Tuesday, March 15, 2016 22:09 - CONCLUSION: No DVT of the right lower extremity. Rob Mckeon MD Brain MRI 03/13/16 0000 Signed Impressions: Service Date/Time: Sunday, March 13, 2016 16:50 - CONCLUSION: 1. No acute intracranial abnormality identified. [place] MD Assessment and Plan Assessment and Plan SVT - abrupt onset and offset suggestive of arrhythmia. Regular R-R intervals. No obvious flutter waves. 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 no delta wave seen on EKG. AVNRT vs AVRT with concealed accessory pathway or antidromic conduction. BP won't tolerate further BB titration. 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 Will ask EP to get involved. She would likely benefit from EPS +/- ablation. Consult Dr. Gilbert. I will sign off. Dr. Gilbert to take over care. I am available for questions. will follow remotely. Justin Leon MD Mar 17, 2016 10:25
[2016-03-17 17:55] LABS: VZV PCR RESULT <500 (())
[2016-03-17] MEDS: ENOXAPARIN SODIUM 40 MG/0.4 ML SYRINGE SQ SCH (20:18)
--- NOTE | 2016-03-17 20:30 | MB ---
cc: PAUL CAPONE ETHAN N. MD BRAITHWAITE,SYLVESTER TOLENTINO M.D., M.D., JOSEPH D. M.D. SEIDE, HANSCY M.D. DATE OF CONSULTATION 03/17/2016 Electrophysiology consultation HISTORY Mrs. Ross is a 40-year-old female with past history of Lyme disease, multiple episodes of syncope in the past year and half, admitted recently due to rash. During hospitalization developed supraventricular tachyarrhythmia. Also some episode of gaetano. There was some seizure like behavior. I was consulted for evaluation and management. The chart was reviewed. The patient was evaluated. ALLERGIES None. SOCIAL HISTORY Negative for smoking. The last time she had a drink was for New Years Sveta. FAMILY HISTORY Noncontributory to her current medical condition. MEDICATIONS She was taken at home: Clindamycin and prednisone. Currently she is on: 1. Metoprolol 12.5 mg twice a day. 2. Lovenox subcu. 3. She is on Zofran. 4. [place]. 5. Valtrex. REVIEW OF SYSTEMS She refers feeling better. No chest pain or discomfort. No palpitation. No fever. PHYSICAL EXAMINATION GENERAL: Alert and fully oriented. VITAL SIGNS: Blood pressure 111/72, pulse 74, respiratory rate 18. LUNGS: Ventilated. CARDIOVASCULAR: S1-S2. No gallop. No murmur. ABDOMEN: Soft. No mass. No bruits. EXTREMITIES: No edema. Electrocardiogram show sinus rhythm. No clear pre-excitation. There is a short FL interval. Ejection fraction 55-60%. No significant abnormalities. LABORATORY DATA Hemoglobin is 13.6, white blood cell 10.1. Potassium 4.5, creatinine 0.79. TSH is to 0.395. ASSESSMENT AND RECOMMENDATIONS Mrs. Herrera has an episode of apparent tachyarrhythmia. That was not symptomatic. The episode of seizure-like syndrome was not correlated with tachyarrhythmia. She has multiple episodes of near syncope in the past. The last one was like two to three weeks ago. She had an episode of syncopal episode where she has a frontal laceration. That was last year. Electrocardiogram and telemetry indicates sinus rhythm. This is apparently sinus tachycardia. 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 She was very active. She never experienced tachycardia, not near syncope. The episodes started around a year ago. Also she is experiencing some rash, it may be an inflammatory response, possible connective tissue disease. At this point my recommendation is observation. If necessary the metoprolol can be discontinued. The patient will be observed. If there is another episode of tachyarrhythmia then I will consider electrophysiology study. Case extensively discussed with her. I will follow her during hospitalization. MD BARNEY Medrano/KK /7:22 PM /8:15 PM
[2016-03-18 04:00] VITALS: BP 114/68; PULSE 66; RESP 16; TEMP 97.6; O2SAT 94
[2016-03-18] MEDS: TRIAMCINOLONE ACETONIDE 0.1% OINT 15 GM TUBE TOPICAL SCH ×4 (05:26→16:41)
[2016-03-18 08:00] VITALS: BP 105/68; PULSE 69; RESP 17; TEMP 97.7; O2SAT 97
[2016-03-18] MEDS: valACYclovir HCL 500 MG TAB PO SCH ×2 (08:58→19:27)
[2016-03-18] MEDS: METOPROLOL TARTRATE 25 MG TAB PO SCH ×2 (08:58→19:27)
[2016-03-18] MEDS: predniSONE 10 MG TAB PO SCH ×2 (08:58→19:27)
--- NOTE | 2016-03-18 09:11 | HHI.PR ---
Subjective Remarks had some palpitation and mild weakness while in shower last night had some tachycardia on monitor. rash better. Objective Vitals erythematous macular rash on shoulders arms/legs still improving. no vesicles or drainage. heart reg lung cta abd s/nt ext no edema Vital Signs Date Time Temp Pulse Resp B/P Pulse Ox O2 Delivery O2 Flow Rate FiO2 03/18/16 08:00 97.7 69 17 105/68 97 03/18/16 04:00 97.6 66 16 114/68 94 03/17/16 23:45 97.8 82 16 110/63 93 03/17/16 20:00 98.0 68 16 136/84 97 03/17/16 20:00 60 03/17/16 16:00 97.8 74 18 111/72 96 03/17/16 12:00 97.2 80 17 118/59 96 03/17/16 03/17/16 03/18/16 15:00 23:00 07:00 Intake Total 750 ml 240 ml 240 ml Output Total 550 ml 100 ml Balance 200 ml 140 ml 240 ml Intake Oral 750 ml 240 ml 240 ml Output Urine Total 550 ml 100 ml # Voids 2 # Bowel Movements 1 0 0 Result Diagram: 03/14/16 0351 A/P Problem List: (1) Rash and nonspecific skin eruption Status: Acute Plan: Pt developed rapidly progressive rash/blisters/bullae around 03/05-03/06 The rash involved the arms but progressed to ant chest/upper back and later thigh/legs. the lesions progressed and have had multiple forms. she has had areas of smaller vesicles clustered on red base. some areas initially of larger blisters or small bullae that ruptured. no sloughing skin or oral/eye mucosa lesions. she had larger tender welt like or nodular erythematous lesion over upper back that later became more target like. no pustules identified -she failed outpt therapy with bendadryl/prednisone/clinda. -extensive hx taken and no clear culprit. no meds, diseases, exposures, or pertinent travel -gustavo negative -The working dx is likely viral or varicella...leading to erythema multiforme. overall seems to be improving. admitted for iv steroids. currently converted to po steroid taper stopped emperic abx to cover skin ca-mrsa. currently no obvious bacterial superinfection valtrex was ordered as some lesions appear to be in the herpes family. gabapentin for severe pain that seems neuropathic ...stop added topical medium potency steroid ointment...seems to be working. will continue on discharge. a lesion was scraped by nursing and sent for herpes viral cx. this is pending. Her varicella igM positive giving the impression of recent exposure/ infection..which correlates with her clinical picture punch bx left arm lesion 03/13 pending. discussed with pathologist. so far nonspecific but sending out to dermpath. doctor. can d/c home from rash standpt on valtrex/steroid taper/topical triamcinolone (2) SVT (supraventricular tachycardia) Status: Acute Plan: pt has had multiple periods of tachycardia up to 150 and symptomatic this seems to occur even at rest She also has in morning alot of gaetano down to high 30s or low 40s discussed with Dr Leon and appears to be svt. bp at present will not support raising the metoprolol Discussed with dr Leon who advises EP study Dr Gilbert evaluated pt and per my discussion today he is leaning toward EPS. will await his f/u assessent. (3) Transient neurologic deficit Status: Acute Plan: Pt and report a recent hx of episodes of blank staring/ unresponsiveness and even apparent syncope at times. she has had some intermittent h/a's. she does describe intermittent palpitations but may or may not correlate with the neurological events. During my evaluation 03/13 pt had a brief episode. while lying back in her hospital bed.. she stopped talking and her head drooped down and to the right. she was nonverbal when I repeatedly asked her to respond. some tears in her eyes. this lasted for about 30-60 seconds. when she finally began to respond she says that she heard everything but was unable to formulate a verbal response. I witnessed no obvious convulsion or eye fluttering. no post ictal sx's. she had recent holter by pcp to evaluate this. this was read as mostly sinus with pac's/pvcs mri head was negative eeg no epileptiform waves orthostatics negative pt/ inquired about tilt table test. if sx's persist she could be referred to [facility] cardiology tele: reveals apparent svt ?flutter...periods of gaetano. see svt section. ?neurocognitive sx's related to mental stress (4) Varicella Status: Acute Plan: see above (5) Right knee sprain Status: Chronic Plan: pt fell off skateboard. has dx of right knee sprain. follows with dr Zaragoza has right knee brace Bay Jaramillo MD Mar 18, 2016 09:11
[2016-03-18] MEDS ORDERED: TRIAM.1%T TOPICAL (09:23)
[2016-03-18] MEDS ORDERED: PRED10 PO (09:23)
[2016-03-18] MEDS ORDERED: VALT500T PO (09:23)
[2016-03-18] MEDS ORDERED: METO25TA3 PO (09:23)
[2016-03-18 12:00] VITALS: BP 103/60; PULSE 80; RESP 17; TEMP 98.5; O2SAT 97
[2016-03-18 16:00] VITALS: BP 99/65; PULSE 78; RESP 17; TEMP 98.5; O2SAT 95
[2016-03-18 19:08] VITALS: PULSE 101
[2016-03-18] MEDS: ENOXAPARIN SODIUM 40 MG/0.4 ML SYRINGE SQ SCH (19:27)
--- NOTE | 2016-03-18 19:42 | HHI.PR ---
Subjective Remarks Palpitation today Objective Vital Signs Date Time Temp Pulse Resp B/P Pulse Ox O2 Delivery O2 Flow Rate FiO2 03/18/16 16:00 98.5 78 17 99/65 95 03/18/16 12:00 98.5 80 17 103/60 97 03/18/16 08:00 97.7 69 17 105/68 97 03/18/16 04:00 97.6 66 16 114/68 94 03/17/16 23:45 97.8 82 16 110/63 93 03/17/16 20:00 98.0 68 16 136/84 97 03/17/16 20:00 60 I/O 03/17/16 03/17/16 03/17/16 03/18/16 03/18/16 03/18/16 07:00 15:00 23:00 07:00 15:00 23:00 Intake Total 480 ml 750 ml 240 ml 240 ml 340 ml Output Total 800 ml 550 ml 100 ml Balance -320 ml 200 ml 140 ml 240 ml 340 ml Intake Oral 480 ml 750 ml 240 ml 240 ml 340 ml Output Urine Total 800 ml 550 ml 100 ml # Voids 2 3 # Bowel Movements 0 1 0 0 0 Result Diagram: 03/14/16 0351 Imaging Alert, fully oriented lungs: ventilated Heart: S1, S2 regular, no gallop Abdomen: soft, no mass Ext: no edema Current Medications Medications (Trade) Dose Ordered Sig/Nirmal Route Start Time Stop Time Status Last Admin (Valtrex) 1,000 mg Q12HR PO 03/12/16 22:15 03/18/16 19:27 (Ativan) 1 mg Q8H PRN PO 03/12/16 22:30 ([place] 5-325 Mg) 1 tab Q4H PRN PO 03/13/16 07:30 03/15/16 16:19 (Zofran Inj) 4 mg Q4HR PRN IV PUSH 03/13/16 08:15 (Lovenox Inj) 40 mg Q24H SQ 03/14/16 20:00 03/18/16 19:27 (Aristocort 0.1% Oint) 1 applic Q6HR TOPICAL 03/15/16 12:00 03/18/16 16:41 (Deltasone) 30 mg BID PO 03/16/16 09:00 03/18/16 19:27 (Lopressor) 12.5 mg Q12HR PO 03/16/16 21:00 03/18/16 19:27 (Pill Splitter) 1 ea UNSCH PRN OTHER 03/16/16 10:15 Assessment and Plan Problem List: (1) SVT (supraventricular tachycardia) Status: Acute Plan: An other episode today. No clear the nature of the tachy. Can be inappropriate sinus tach VS a reentrant tach EPS with possible ablation vs medical management with [place] vs observation discussed. Patient will make a decision in AM after talking to Sebas Gilbert MD Mar 18, 2016 19:42
[2016-03-18 20:00] VITALS: BP 129/80; PULSE 96; RESP 18; TEMP 97.8; O2SAT 96
--- NOTE | 2016-03-18 21:07 | MP ---
cc: DOMINIQUE URBINA DATE OF SURGERY: 03/13/2016 PREOPERATIVE DIAGNOSIS Unusual rash upper extremities, bilateral lower extremities, bilateral back and neck. POSTOPERATIVE DIAGNOSIS Unknown, pending permanent tissue evaluation from punch biopsy. PROCEDURE Punch biopsy 5 millimeter, left upper extremity skin lesion. ANESTHESIA Local SURGEON Yenni Urbina MD. INDICATIONS This is a pleasant 40-year-old female who has had this unusual rash. It is progressing over the last week. Dr. Jaramillo is her family physician, has asked me to do a punch biopsy to aid in the diagnosis because all medical treatment has failed at this point. The rash is progressing. DESCRIPTION OF PROCEDURE: The patient is in the emergency room. I prepped the area with Betadine, anesthetized with a Marcaine solution. A 5 mm punch biopsy was obtained in the left upper extremity, border of the skin lesion with a rim of normal appearing skin. The 5 millimeter punch is done and it is closed with a 4-0 nylon. The specimen is placed in a specimen container and sent down to pathology. This was discussed with the patient and Dr. Jaramillo. Dominique Urbina MD JDB/CASSI /3:14 PM /9:00 PM
[2016-03-19] VITALS (12 sets, daily range): BP systolic 104–140; BP diastolic 55–81; PULSE 61–97; RESP 17–18; TEMP 96.8–98.8; O2SAT 95–98
[2016-03-19] MEDS: TRIAMCINOLONE ACETONIDE 0.1% OINT 15 GM TUBE TOPICAL SCH ×4 (06:00→18:20)
[2016-03-19] MEDS: METOPROLOL TARTRATE 25 MG TAB PO SCH ×2 (07:40→22:22)
[2016-03-19] MEDS: valACYclovir HCL 500 MG TAB PO SCH ×2 (07:49→22:20)
[2016-03-19] MEDS: predniSONE 10 MG TAB PO SCH ×2 (07:49→22:21)
--- NOTE | 2016-03-19 07:53 | HHI.PR ---
Subjective Remarks doing ok. had palpitation sx's yesterday. gets periods of exhaustion which may be related. Objective Vitals heart reg lung cta abd s/nt ext no edema erythematous macular rash over shoulders and arms/legs improving. no pustules or vesicles left arm stitch Vital Signs Date Time Temp Pulse Resp B/P Pulse Ox O2 Delivery O2 Flow Rate FiO2 03/19/16 04:00 97.6 68 18 108/71 97 03/19/16 00:00 97.9 65 18 134/55 96 03/18/16 20:00 97.8 96 18 129/80 96 03/18/16 19:08 101 03/18/16 16:00 98.5 78 17 99/65 95 03/18/16 12:00 98.5 80 17 103/60 97 03/18/16 08:00 97.7 69 17 105/68 97 03/18/16 03/18/16 03/19/16 15:00 23:00 07:00 Intake Total 340 ml 360 ml 240 ml Balance 340 ml 360 ml 240 ml Intake Oral 340 ml 360 ml 240 ml # Voids 3 0 2 # Bowel Movements 0 0 0 A/P Problem List: (1) Rash and nonspecific skin eruption Status: Acute Plan: Pt developed rapidly progressive rash/blisters/bullae around 03/05-03/06 The rash involved the arms but progressed to ant chest/upper back and later thigh/legs. the lesions progressed and have had multiple forms. she has had areas of smaller vesicles clustered on red base. some areas initially of larger blisters or small bullae that ruptured. no sloughing skin or oral/eye mucosa lesions. she had larger tender welt like or nodular erythematous lesion over upper back that later became more target like. no pustules identified -she failed outpt therapy with bendadryl/prednisone/clinda. -extensive hx taken and no clear culprit. no meds, diseases, exposures, or pertinent travel -gustavo negative -The working dx is likely viral or varicella...leading to erythema multiforme. overall seems to be improving. admitted for iv steroids. currently converted to po steroid taper stopped emperic abx to cover skin ca-mrsa. currently no obvious bacterial superinfection valtrex was ordered as some lesions appear to be in the herpes family. gabapentin for severe pain that seems neuropathic ...stop added topical medium potency steroid ointment...seems to be working. will continue on discharge. a lesion was scraped by nursing and sent for herpes viral cx. this is negative Her varicella igM positive giving the impression of recent exposure/ infection..which correlates with her clinical picture punch bx left arm lesion 03/13 pending. discussed with pathologist. so far nonspecific but sending out to dermpath. doctor. can d/c home from rash standpt on valtrex/steroid taper/topical triamcinolone (2) SVT (supraventricular tachycardia) Status: Acute Plan: pt has had multiple periods of tachycardia up to 150 and symptomatic this seems to occur even at rest She also has in morning alot of gaetano down to high 30s or low 40s discussed with Dr Leon and appears to be svt. bp at present will not support raising the metoprolol Discussed with dr Leon who advises EP study Dr Gilbert evaluated pt and per my discussion he is leaning toward EPS Pt and Dr Gilbert to decide this morning for the eps...instructed to keep npo. will await his f/u assessent. (3) Transient neurologic deficit Status: Acute Plan: Pt and report a recent hx of episodes of blank staring/ unresponsiveness and even apparent syncope at times. she has had some intermittent h/a's. she does describe intermittent palpitations but may or may not correlate with the neurological events. During my evaluation 03/13 pt had a brief episode. while lying back in her hospital bed.. she stopped talking and her head drooped down and to the right. she was nonverbal when I repeatedly asked her to respond. some tears in her eyes. this lasted for about 30-60 seconds. when she finally began to respond she says that she heard everything but was unable to formulate a verbal response. I witnessed no obvious convulsion or eye fluttering. no post ictal sx's. she had recent holter by pcp to evaluate this. this was read as mostly sinus with pac's/pvcs mri head was negative eeg no epileptiform waves orthostatics negative pt/ inquired about tilt table test. if sx's persist she could be referred to [facility] cardiology tele: reveals apparent svt ?flutter...periods of gaetano. see svt section. ?neurocognitive sx's related to mental stress (4) Varicella Status: Acute Plan: see above (5) Right knee sprain Status: Chronic Plan: pt fell off skateboard. has dx of right knee sprain. follows with dr Zaragoza has right knee brace Bay Jaramillo MD Mar 19, 2016 07:53
[2016-03-19] MEDS: ENOXAPARIN SODIUM 40 MG/0.4 ML SYRINGE SQ SCH (22:21)
--- NOTE | 2016-03-19 23:11 | HHI.PR ---
Subjective Remarks Concerns about palpitation Objective Vital Signs Date Time Temp Pulse Resp B/P Pulse Ox O2 Delivery O2 Flow Rate FiO2 03/19/16 18:00 68 03/19/16 17:30 97.6 69 18 135/72 96 03/19/16 16:00 97.0 97 17 104/56 95 03/19/16 12:00 96.8 73 18 136/81 95 03/19/16 08:00 98.1 71 17 113/61 96 03/19/16 04:00 97.6 68 18 108/71 97 03/19/16 00:00 97.9 65 18 134/55 96 I/O 03/18/16 03/18/16 03/18/16 03/19/16 03/19/16 03/19/16 07:00 15:00 23:00 07:00 15:00 23:00 Intake Total 240 ml 340 ml 360 ml 240 ml 240 ml Balance 240 ml 340 ml 360 ml 240 ml 240 ml Intake Oral 240 ml 340 ml 360 ml 240 ml 240 ml # Voids 2 3 0 2 3 # Bowel Movements 0 0 0 0 1 Imaging Alert, fully oriented Lungs: ventilated Heart: S1, S2 regular, no gallop Abdomen: soft, no mass Ext: no edema Current Medications Medications (Trade) Dose Ordered Sig/Nirmal Route Start Time Stop Time Status Last Admin (Valtrex) 1,000 mg Q12HR PO 03/12/16 22:15 03/19/16 22:20 (Ativan) 1 mg Q8H PRN PO 03/12/16 22:30 ([place] 5-325 Mg) 1 tab Q4H PRN PO 03/13/16 07:30 03/15/16 16:19 (Zofran Inj) 4 mg Q4HR PRN IV PUSH 03/13/16 08:15 (Lovenox Inj) 40 mg Q24H SQ 03/14/16 20:00 03/19/16 22:21 (Aristocort 0.1% Oint) 1 applic Q6HR TOPICAL 03/15/16 12:00 03/19/16 18:20 (Deltasone) 30 mg BID PO 03/16/16 09:00 03/19/16 22:21 (Lopressor) 12.5 mg Q12HR PO 03/16/16 21:00 03/19/16 22:22 (Pill Splitter) 1 ea UNSCH PRN OTHER 03/16/16 10:15 Assessment and Plan Problem List: (1) SVT (supraventricular tachycardia) Status: Acute Plan: An other episode this morning. Case extensively discussed with her and her Decision for EPS and possible ablation discussed. The risks, the nature and benefits discussed. Patient understand and agree to proceed. Procedure will be scheduled for AM. Sebas Gilbert MD Mar 19, 2016 23:11
[2016-03-20] VITALS (20 sets, daily range): BP systolic 100–142; BP diastolic 62–77; PULSE 66–94; RESP 16–18; TEMP 97.6–98.7; O2SAT 96–99
[2016-03-20] MEDS: TRIAMCINOLONE ACETONIDE 0.1% OINT 15 GM TUBE TOPICAL SCH ×5 (00:47→23:55)
[2016-03-20] MEDS ORDERED: ISOPROTERENOL HCL 1 MG/5 ML AMP ONE (07:26)
[2016-03-20] MEDS ORDERED: PROPOFOL 200 MG/20 ML AMP IV ONE (07:30)
--- NOTE | 2016-03-20 07:36 | HHI.PR ---
Subjective Remarks had some dizziness last night going to bathroom. tachycardia around 10pm Objective Vitals heart reg lung cta abd s/nt ext no edema erythematous macules on shoulder arms/legs improving. papules and vesicles resolved. Vital Signs Date Time Temp Pulse Resp B/P Pulse Ox O2 Delivery O2 Flow Rate FiO2 03/20/16 03:00 98.7 94 18 100/63 96 03/19/16 23:00 98.8 84 18 128/73 98 03/19/16 19:00 98.3 95 18 140/68 95 03/19/16 18:00 68 03/19/16 17:30 97.6 69 18 135/72 96 03/19/16 16:00 97.0 97 17 104/56 95 03/19/16 12:00 96.8 73 18 136/81 95 03/19/16 08:00 98.1 71 17 113/61 96 03/19/16 03/19/16 03/20/16 15:00 23:00 07:00 Intake Total 240 ml Balance 240 ml Intake Oral 240 ml # Voids 3 # Bowel Movements 1 A/P Problem List: (1) Rash and nonspecific skin eruption Status: Acute Plan: Pt developed rapidly progressive rash/blisters/bullae around 03/05-03/06 The rash involved the arms but progressed to ant chest/upper back and later thigh/legs. the lesions progressed and have had multiple forms. she has had areas of smaller vesicles clustered on red base. some areas initially of larger blisters or small bullae that ruptured. no sloughing skin or oral/eye mucosa lesions. she had larger tender welt like or nodular erythematous lesion over upper back that later became more target like. no pustules identified -she failed outpt therapy with bendadryl/prednisone/clinda. -extensive hx taken and no clear culprit. no meds, diseases, exposures, or pertinent travel -gustavo negative -The working dx is likely viral or varicella...leading to erythema multiforme. overall seems to be improving. -Her varicella IgM was positive admitted for iv steroids. currently converted to po steroid taper stopped emperic abx to cover skin ca-mrsa. currently no obvious bacterial superinfection valtrex was ordered as some lesions appeared to be in the herpes family. gabapentin for severe pain that seems neuropathic ...stopped added topical medium potency steroid ointment...seems to be working. will continue on discharge. a lesion was scraped by nursing and sent for herpes viral cx. this is negative Her varicella igM positive giving the impression of recent exposure/ infection..which correlates with her clinical picture punch bx left arm lesion 03/13 pending. discussed with pathologist. so far nonspecific but sending out to dermpath. doctor. can d/c home from rash standpt on valtrex/steroid taper/topical triamcinolone (2) SVT (supraventricular tachycardia) Status: Acute Plan: pt has had multiple periods of tachycardia up to 150 and symptomatic looks like svt..?avrt ?aflutter this seems to occur even at rest She also has in morning alot of gaetano down to high 30s or low 40s discussed with Dr Leon and appears to be svt. bp at present will not support raising the metoprolol Discussed with dr Leon who advises EP study Dr Gilbert evaluated and recommended EP study Pt going for EPS today d/c when ok with Dr Gilbert (3) Transient neurologic deficit Status: Acute Plan: Pt and report a recent hx of episodes of blank staring/ unresponsiveness and even apparent syncope at times. she has had some intermittent h/a's. she does describe intermittent palpitations but may or may not correlate with the neurological events. During my evaluation 03/13 pt had a brief episode. while lying back in her hospital bed.. she stopped talking and her head drooped down and to the right. she was nonverbal when I repeatedly asked her to respond. some tears in her eyes. this lasted for about 30-60 seconds. when she finally began to respond she says that she heard everything but was unable to formulate a verbal response. I witnessed no obvious convulsion or eye fluttering. no post ictal sx's. she had recent holter by pcp to evaluate this. this was read as mostly sinus with pac's/pvcs mri head was negative eeg no epileptiform waves orthostatics negative pt/ inquired about tilt table test. if sx's persist she could be referred to [facility] cardiology tele: reveals apparent svt ?flutter...periods of gaetano. see svt section. ?neurocognitive sx's related to mental stress. Not clearly petit mal. (4) Varicella Status: Acute Plan: see above (5) Right knee sprain Status: Chronic Plan: pt fell off skateboard. has dx of right knee sprain. follows with dr Zaragoza has right knee brace Bay Jaramillo MD Mar 20, 2016 07:36
[2016-03-20] MEDS ORDERED: MIDAZOLAM HCL 2 MG/2 ML VIAL ONE (08:40)
[2016-03-20] MEDS ORDERED: METOCLOPRAMIDE HCL 10 MG/2 ML VIAL IV PRN (08:45)
[2016-03-20] MEDS ORDERED: ONDANSETRON HCL 4 MG/2 ML VIAL IV PRN (08:45)
[2016-03-20] MEDS ORDERED: ATROPINE SULFATE 1 MG/ML VIAL IV PRN (08:45)
[2016-03-20] MEDS ORDERED: SODIUM CHLOR 0.9% 250 ML INJ 250 ML IV PRN (08:45)
[2016-03-20] MEDS ORDERED: oxyCODONE/ACETAMINOPHEN 5 MG/325 MG TAB PO PRN (08:45)
[2016-03-20] MEDS ORDERED: BACITRACIN OINT 0.9 GM PKT TOP ONE (08:45)
[2016-03-20] MEDS ORDERED: LIDOCAINE HCL 1% 50 ML VIAL INFIL PRN (08:45)
[2016-03-20] MEDS ORDERED: LORazepam 2 MG/ML VIAL IV PRN (08:45)
[2016-03-20] MEDS: METOPROLOL TARTRATE 25 MG TAB PO SCH ×2 (09:00→21:00)
[2016-03-20] MEDS ORDERED: DO NOT ADM ANY ANTICOAGULANT DRUGS XX PRN (09:30)
[2016-03-20] MEDS: oxyCODONE/ACETAMINOPHEN 5 MG/325 MG TAB PO PRN ×3 (09:47→21:01)
[2016-03-20] MEDS: valACYclovir HCL 500 MG TAB PO SCH ×2 (09:58→21:00)
[2016-03-20] MEDS: predniSONE 10 MG TAB PO SCH (09:58)
[2016-03-20] MEDS ORDERED: SODIUM CHLOR 0.9% 250 ML BAG IV ONE (10:01)
[2016-03-20] MEDS ORDERED: METOPROLOL TARTRATE 25 MG TAB PO SCH (12:00)
--- NOTE | 2016-03-20 14:25 | EKG ---
Date Performed: 03/20/2016 Time Performed: 10:09:06 PTAGE: 40 years EKG: Sinus rhythm Anterior T wave changes are borderline abnormal Compared to previous tracing there has been a decrea se in the nonspecific T wave changes Borderline ECG PREVIOUS TRACING : 03/16/2016 10.14 DOCTOR: Melissa Ho Interpretating Date/Time 03/20/2016 14:24:54
[2016-03-20] MEDS: predniSONE 20 MG TAB PO SCH (21:00)
[2016-03-20] MEDS: ENOXAPARIN SODIUM 40 MG/0.4 ML SYRINGE SQ SCH (21:02)
[2016-03-21] VITALS (15 sets, daily range): BP systolic 118–138; BP diastolic 64–74; PULSE 52–68; RESP 18–20; O2SAT 96–98
[2016-03-21] MEDS: oxyCODONE/ACETAMINOPHEN 5 MG/325 MG TAB PO PRN ×3 (03:29→12:35)
[2016-03-21] MEDS: TRIAMCINOLONE ACETONIDE 0.1% OINT 15 GM TUBE TOPICAL SCH (06:00)
[2016-03-21] MEDS: METOPROLOL TARTRATE 25 MG TAB PO SCH (08:32)
[2016-03-21] MEDS: predniSONE 20 MG TAB PO SCH (08:32)
[2016-03-21] MEDS: valACYclovir HCL 500 MG TAB PO SCH (08:32)
--- NOTE | 2016-03-21 09:17 | HHI.PR ---
Subjective Remarks some pain at left groin site. eager for d/c today Objective Vitals heart reg lung cta abd s/nt ext no edema erythematous blotching rash over shoulder/arms/legs improved. no vesicles. left arm stitch Vital Signs Date Time Temp Pulse Resp B/P Pulse Ox O2 Delivery O2 Flow Rate FiO2 03/21/16 08:00 65 03/21/16 07:00 66 18 129/74 98 03/21/16 07:00 57 03/21/16 06:00 54 03/21/16 05:00 52 03/21/16 04:00 54 03/21/16 03:37 62 18 138/69 96 03/21/16 03:00 56 03/21/16 02:00 58 03/21/16 01:00 62 03/21/16 00:00 68 03/20/16 23:00 73 03/20/16 23:00 70 18 110/62 98 03/20/16 22:00 82 03/20/16 21:00 84 03/20/16 20:00 72 03/20/16 19:00 97.6 83 18 142/77 97 03/20/16 19:00 67 03/20/16 18:00 70 03/20/16 17:48 98 21 03/20/16 15:00 98.1 70 18 114/68 98 03/20/16 12:00 72 03/20/16 11:00 78 03/20/16 10:00 74 03/20/16 03/20/16 03/21/16 15:00 23:00 07:00 Intake Total 480 ml 240 ml Balance 480 ml 240 ml Intake Oral 480 ml 240 ml # Voids 2 2 A/P Problem List: (1) Rash and nonspecific skin eruption Status: Acute Plan: Pt developed rapidly progressive rash/blisters/bullae around 03/05-03/06 The rash involved the arms but progressed to ant chest/upper back and later thigh/legs. the lesions progressed and have had multiple forms. she has had areas of smaller vesicles clustered on red base. some areas initially of larger blisters or small bullae that ruptured. no sloughing skin or oral/eye mucosa lesions. she had larger tender welt like or nodular erythematous lesion over upper back that later became more target like. no pustules identified -she failed outpt therapy with bendadryl/prednisone/clinda. -extensive hx taken and no clear culprit. no meds, diseases, exposures, or pertinent travel -gustavo negative -The working dx is likely viral or varicella...leading to erythema multiforme. overall seems to be improving. -Her varicella IgM was positive admitted for iv steroids. currently converted to po steroid taper stopped emperic abx to cover skin ca-mrsa. currently no obvious bacterial superinfection valtrex was ordered as some lesions appeared to be in the herpes family. gabapentin for severe pain that seems neuropathic ...stopped added topical medium potency steroid ointment...seems to be working. will continue on discharge. a lesion was scraped by nursing and sent for herpes viral cx. this is negative Her varicella igM positive giving the impression of recent exposure/ infection..which correlates with her clinical picture punch bx left arm lesion 03/13 pending. discussed with pathologist. so far nonspecific but sending out to dermpath. doctor. can d/c home from rash standpt on valtrex/steroid taper/topical triamcinolone remove the left arm stitch by Wednesday (2) SVT (supraventricular tachycardia) Status: Acute Plan: pt has had multiple periods of tachycardia up to 150 and symptomatic looks like svt..?avrt ?aflutter this seems to occur even at rest She also has in morning alot of gaetano down to high 30s or low 40s discussed with Dr Leon and appears to be svt. bp at present will not support raising the metoprolol Discussed with dr Leon who advises EP study Dr Gilbert evaluated and recommended EP study s/p EPS /....unable to ablate per reports tele looked like a few runs of VT after the procedure but no further tachyarrhymias overnight to my knowlee d/c home today after seen by cardiology. (3) Transient neurologic deficit Status: Acute Plan: Pt and report a recent hx of episodes of blank staring/ unresponsiveness and even apparent syncope at times. she has had some intermittent h/a's. she does describe intermittent palpitations but may or may not correlate with the neurological events. During my evaluation 03/13 pt had a brief episode. while lying back in her hospital bed.. she stopped talking and her head drooped down and to the right. she was nonverbal when I repeatedly asked her to respond. some tears in her eyes. this lasted for about 30-60 seconds. when she finally began to respond she says that she heard everything but was unable to formulate a verbal response. I witnessed no obvious convulsion or eye fluttering. no post ictal sx's. she had recent holter by pcp to evaluate this. this was read as mostly sinus with pac's/pvcs mri head was negative eeg no epileptiform waves orthostatics negative pt/ inquired about tilt table test. if sx's persist she could be referred to [facility] cardiology tele: reveals apparent svt ?flutter...periods of gaetano. see svt section. ?neurocognitive sx's related to mental stress. Not clearly petit mal. (4) Varicella Status: Acute Plan: see above (5) Right knee sprain Status: Chronic Plan: pt fell off skateboard. has dx of right knee sprain. follows with dr Zaragoza has right knee brace Bay Jaramillo MD Mar 21, 2016 09:17
[2016-03-21] MEDS ORDERED: OXYC1TAB63 PO (09:19)
[2016-03-21] MEDS ORDERED: METO25TA3 PO (09:19)
--- NOTE | 2016-03-21 09:20 | HHI.DCPOC ---
Discharge Care Plan Diagnosis: (1) Varicella (2) SVT (supraventricular tachycardia) Goals to Promote Your Health * To prevent worsening of your condition and complications * To maintain your health at the optimal level Directions to Meet Your Goals Take your medications as prescribed Follow your dietary instruction Follow activity as directed Keep your appointments as scheduled Take your immunizations and boosters as scheduled If your symptoms worsen call your PCP, if no PCP go to Urgent Care Center or Emergency Room Smoking is Dangerous to Your Health. Avoid second hand smoke Call the 24-hour hour crisis hotline for domestic abuse at [facility] Jaramillo MD Mar 21, 2016 09:20
--- NOTE | 2016-03-21 11:47 | PD.CARD.PN ---
Subjective Subjective Remarks The patient denies chest pain, shortness of breath, palpitations or GI symptoms. Telemetry reveals sinus rhythm. Chart reviewed. Objective Medications Reviewed Vital Signs / I&O Vital Signs Date Time Temp Pulse Resp B/P Pulse Ox O2 Delivery O2 Flow Rate FiO2 03/21/16 10:01 96 21 03/21/16 08:00 65 03/21/16 07:00 66 18 129/74 98 03/21/16 07:00 57 03/21/16 06:00 54 03/21/16 05:00 52 03/21/16 04:00 54 03/21/16 03:37 62 18 138/69 96 03/21/16 03:00 56 03/21/16 02:00 58 03/21/16 01:00 62 03/21/16 00:00 68 03/20/16 23:00 73 03/20/16 23:00 70 18 110/62 98 03/20/16 22:00 82 03/20/16 21:00 84 03/20/16 20:00 72 03/20/16 19:00 97.6 83 18 142/77 97 03/20/16 19:00 67 03/20/16 18:00 70 03/20/16 17:48 98 21 03/20/16 15:00 98.1 70 18 114/68 98 03/20/16 12:00 72 I/O 03/20/16 03/20/16 03/20/16 03/21/16 03/21/16 03/21/16 07:00 15:00 23:00 07:00 15:00 23:00 Intake Total 240 ml 480 ml 240 ml Balance 240 ml 480 ml 240 ml Intake Oral 240 ml 480 ml 240 ml # Voids 4 2 2 Physical Exam GENERAL: Well-nourished, well-developed patient in no apparent distress. SKIN: Warm and dry. NECK: JVD normal - less than or equal to 5 cm H20. CARDIOVASCULAR: Regular rate and rhythm without murmurs, gallops, or rubs. RESPIRATORY: Normal breath sounds - equal bilaterally. No accessory muscle use. No wheezes, rales or rubs. PERIPHERY: No cyanosis, or edema. Both groins dry without hematoma. Assessment and Plan Assessment and Plan Problems: Inappropriate sinus tachycardia Recommendations: We'll leave on low-dose beta blockers. She will follow-up with Dr. monzon. I will leave discharged to the primary service and we will be available if needed. Oral Diaz MD Mar 21, 2016 11:47
--- NOTE | 2016-03-24 15:34 | HHI.DS ---
Discharge Summary Admission Date Mar 12, 2016 at 21:24 Discharge Date: Mar 21, 2016 Admitting Diagnosis Persistent dermatitis (1) Urticarial vasculitis Diagnosis: Principal (2) Varicella Diagnosis: Principal (3) SVT (supraventricular tachycardia) Diagnosis: Principal (4) Transient neurologic deficit Diagnosis: Principal (5) Right knee sprain Diagnosis: Secondary Hospital Course Pt developed rapidly progressive rash/blisters/bullae around 03/05-03/06 The rash involved the arms but progressed to ant chest/upper back and later thigh/legs. The lesions progressed and have had multiple forms. She has had areas of smaller vesicles clustered on red base. some areas initially of larger blisters or small bullae that ruptured. no sloughing skin or oral/eye mucosa lesions. She had larger tender welt like or nodular erythematous lesions over upper back that could be describes as hive-like. Those lestions later became more target like. no pustules identified. She failed outpt therapy with bendadryl/prednisone/clinda. Extensive hx taken and no clear culprit. no meds, diseases, exposures, or pertinent travel. She was admitted to hospital and initial impressions were that some of the lesions could be herpetiform in nature and possible erythema multiforme secondary to a virus. She was placed on iv solumedrol and valtrex. antibiotics were stopped as this was not obviously bacterial. Her lesions gradually improved and by the time of discharge she just had some blotchy erythematous areas over shoulder and no vesicle or bullae over arms/legs -gustavo negative. esr nml at 10. tsh and free t4 normal. EBV titers suggested old infection. -culture of skin lesion was negative for herpes simplex virus. -She had positive Varicella IgG but also had Positive Varicella IGM. She denies any past infection with varicella and she may have been vaccinated around the time of a previous . We had discharged the patient home before the bx was available and the best answer that we could give at that time was a varicella rash which certainly could have explained much of the rash findings. She was sent home on a week of prednisone taper, triamcinolone 0.1 percent for a week, and she completed the valtrex. A punch bx left arm lesion 03/13 . The pathology dept at [facility] was unable to describe a specific condition. We sent it to dermpathologist in [place] and I spoke to Dr Peggy Jane. 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 A repeat biopsy could be considered especially if new lesion form and this time order direct immunoflourescence and make sure the sample place in Anita solution. I called the patient 2 days after discharge and she seems to be doing fine. I think we need to refer her to a licensed insurance agent to further explore the biopsy result of urticarial vasculitis. We discussed idiopathic UV, as well as infectious and autoimmune causes. Clinically a malignant cause seems very unlikely. I think that if her rash returns after her prednisone taper or if a regional facilities specialist is also in agreement with the biopsy result then an autoimmune panel would be a start in further evaluating the urticarial vasculitis. To include/consider anti SSA, anti SSB, anti ENVIRONMENTAL TECHNICAL OFFICER, ANCA ( myeloperoxidase and proteinase 3),repeat GUSTAVO, complements to differentiate hypocomplementemic UV..C1q, E2zxszeufoc, C3 and C4, ?ch50, RF(anti CCP), cryoglobulins, Hep B and C, ?immunofixation electropheresis. I have called [facility] for appt. Please call me at [phone] with any questions. Pt has had multiple periods of tachycardia up to 150 and symptomatic Looks like svt and AVRT and a.flutter considered. She also has in morning alot of gaetano down to high 30s or low 40s discussed with Dr Leon and appears to be svt. Discussed with dr Leon who advises EP study Dr Gilbert evaluated and recommended EP study s/p EPS 2/3....unable to reproduce the tachyarrhythmia and so no ablation. her metoprolol increased from 12.5mg bid to 25mg po bid and no further runs svt overnight. monitor for hypotension or symptoms of hypotension. She will follow closely with Dr Gilbert for outpt heart monitor and med adjustment as needed. Pt and report a recent hx of episodes of blank staring/unresponsiveness and even apparent syncope at times. she has had some intermittent h/a's. she does describe intermittent palpitations but may or may not correlate with the neurological events. she had recent holter by pcp to evaluate this. this was read as mostly sinus with pac's/pvcs mri head was negative eeg no epileptiform waves orthostatics negative If symptoms not improving with control of svt then consider neurocognitive sx's related to mental stress/depression. Not clearly petit mal but neurology consultation could be obtained as outpatient. Pt fell off skateboard. has dx of right knee sprain. follows with dr Zaragoza.has right knee brace No dvt identified on doppler u/s Pt Condition on Discharge: Stable Discharge Disposition: Discharge Home Discharge Instructions DIET: Follow Instructions for: As Tolerated, No Restrictions Activities you can perform: See Additionl Instruction Other Activity Instructions: Light exertional activity over next 2-3 days before returning to work. Follow up Referrals: Cardiology - 1 Week with Sebas Gilbert MD PCP Follow-up - [address] randi hammer New Medications: Metoprolol Tartrate (Metoprolol Tartrate) 25 Mg Tab 25 MG PO BID svt #60 Ref 6 TAB Oxycodone-Acetaminophen (Oxycodone-Acetaminophen) 5-325 mg Tab 1-2 TAB PO Q4H PRN pain #20 TAB Prednisone (Prednisone) 10 Mg Tab 10 MG PO DIRECTED 20 mg po bid x 2 days, 10 mg po bid x 2 days, 10mg po daily x 3 days Rash Days 7 TAB Triamcinolone Topical (Triamcinolone Topical) 0.1 % Oint 1 APPLIC TOPICAL Q6HR Rash Days 7 TUBE Valacyclovir (Valtrex) 500 Mg Tab 1000 MG PO Q12HR Rash Days 2 TAB [facility] Jaramillo MD Mar 24, 2016 15:34 PCP Follow-up - [address] randi hammer New Medications: Metoprolol Tartrate (Metoprolol Tartrate) 25 Mg Tab 25 MG PO BID svt #60 Ref 6 TAB Oxycodone-Acetaminophen (Oxycodone-Acetaminophen) 5-325 mg Tab 1-2 TAB PO Q4H PRN pain #20 TAB Prednisone (Prednisone) 10 Mg Tab 10 MG PO DIRECTED 20 mg po bid x 2 days, 10 mg po bid x 2 days, 10mg po daily x 3 days Rash Days 7 TAB Triamcinolone Topical (Triamcinolone Topical) 0.1 % Oint 1 APPLIC TOPICAL Q6HR Rash Days 7 TUBE Valacyclovir (Valtrex) 500 Mg Tab 1000 MG PO Q12HR Rash Days 2 TAB [facility] Jaramillo MD Mar 24, 2016 15:34
--- NOTE | 2016-04-26 23:21 | PD.CARD ---
ELECTROPHYSIOLOGY STUDY PROCEDURE DATE: Mar 20, 2016 ELECTROPHYSIOLOGY STUDY NOTE PROCEDURE Electrophysiology study, coronary sinus cannulation, repeat electrophysiology on isuprel infusion. HISTORY Ms. Herrera is a 40 -year-old female with hx of syncope, tachyarrhythmia, SVT, episodes of bradycardia, previous hx of Lyme disease, normal EF who was referred for electrophysiology study and possible ablation. The risks, the nature and the benefit of the procedure are clearly stated to her . Risks include pneumothorax, cardiac perforation, stroke and even . She understood and agreed to proceed. PROCEDURE NOTE After written informed consent was obtained, the patient was brought to the EP lab where she was prepped and draped in the usual sterile fashion. Conscious sedation was initiated and maintained throughout the procedure by anesthesiologist. Once sedation was verified, the right and left inguinal area was anesthetized with 2% Xylocaine. Using modified Seldinger technique, the right femoral vein was cannulated on one occasion and a guidewire was advanced. Over the wire a 6 [place] Hema[place] was advanced. The left femoral vein was cannulated in 3 occasions and 3 guidewires were advanced. Over the wires, three 5 Fr hemaquets were advanced. Then, under fluoroscopic guidance through the 5 and [place] Hemaquet three 5 [place] curved quadripolar electrophysiology catheters were advanced and positioned along the His, upper right atrium and coronary sinus. Basic intervals were measured. They were within normal limits. Then atrial pacing protocol was performed. Atrial pacing protocol consisted of incremental atrial pacing as well as programmed stimulation with one drive train cycle lenght and up to one extra stimuli delivered. No tachy was induced. Atrial pacing protocol was also performed at the coronary sinus. No tachycardia was induced. No preexcitation seen. Then ventricular pacing protocol was performed. There was VA conduction. No tachycardia was induced. Ventricular pacing protocol consisted on incremental ventricular pacing as well as programmed stimulation with one drive train cycle lenght and up to three extra stimuli delivered. No tachycardia was induced. Isuprel infusion was initiated at 4 Mcg. Atrial and ventricular pacing protocol were repeated. No tachy was induced. Post isuprel, no tachy was induced. At that point, procedure was complete. All catheters and Hemaquet were removed. The patient will be transferred to recovery room. No incident reported. The patient tolerated the procedure. Blood loss minimal. IMPRESSION 1. Electrocardiogram: At baseline the patient was in sinus rhythm. Post- procedure electrocardiogram was unchanged. 2. Basic Interval: The basic cycle length was around 840 milliseconds. AH 86 H-V was around 42 milliseconds. 3. Atrial pacing protocol: No tachyarrhythmia was induced. No preexcitation seen. 4. Ventricular Pacing Protocol: No ventricular tachyarrhythmia was induced. CONCLUSIONS Negative electrophysiology study for supra and ventricular tachyarrhythmia. COMMENT AND RECOMMENDATION The patient will be transferred to recovery room. 30 days event recorder vs implantable loop recorder will be discussed. She can be DH when ok with the managing team. Sebas Gilbert MD Apr 26, 2016 23:21
== END 2016-03-21 13:24 | disposition home or self-care (01) | DRG 546 ==
LOC: OBSVTOIN 21:24 → NEPHCDU 21:24 → INTOOBSV 21:24 → OBSVTOIN 03-13 16:51 → N07A 03-13 22:27 → HCIS 03-19 17:05
PROVIDERS: ADMIT Hospitalist; ATTEND Hospitalist
PROC: 0HBCXZX Excision of Left Upper Arm Skin, External Approach, Diagnostic (ICD-10-PCS; principal; 2016-03-13)
DX: I77.6 Arteritis, unspecified (principal); I47.1 Supraventricular tachycardia; B01.9 Varicella without complication; L13.0 Dermatitis herpetiformis; R29.818 Other symptoms and signs involving the nervous system; S83.91XA Sprain of unspecified site of right knee, initial encounter; V00.131A Fall from skateboard, initial encounter; Y93.51 Activity, roller skating (inline) and skateboarding
CPT/HCPCS: 70551; 80048; 80053; 81001; 82607; 84439; 84443; 84703; 85025; 85379; 85652; 86038; 86140; 86664; 86665; 86787; 87040; 87255; 87496; 87799; 88305; 93005; 93306; 93620; 93623; 93971; 95819; C1730; J1650; J2250; J2920; J2930; J7050; J7512

== ENCOUNTER 2016-03-29 11:53 | Inpatient (IN) | payer OTHER ==
[~2016-03-29] VITALS: Ht 167.6 cm; Wt 100.1 kg
[~2016-03-29 11:53] MED LIST changes: -NORC5TAB PO; -OSCA200T PO; -OYST250T4 PO; -PANT40TA3 PO; -PRED20 PO
[2016-03-29 12:02] VITALS: BP 143/68; PULSE 100; RESP 20
[2016-03-29 12:07] VITALS: TEMP 98.1
--- NOTE | 2016-03-29 12:33 | PD ---
HPI Chief Complaint: Skin Problem Time Seen by Provider: 11:56 Travel History International Travel<30 days: No Contact w/Intl Traveler<30days: No Traveled to known affect area: No History of Present Illness HPI The patient is a 40-year-old female who presents emergency department for vasculitis. 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 The patient also tested positive for IgM Varicella. The patient was placed on high-dose steroids and her symptoms improved, patient was discharged home on oral prednisone. The patient has been tapering prednisone, however, her symptoms are rebound and. She now complains of increasing rash which is painful to the upper extremities, shoulders, anterior chest wall, and legs. The patient states her abdomen and suprapubic region are spared. She denies any involvement of the vagina or oral region. The patient did have a biopsy performed by Dr. Urbina and was seen on an outpatient basis by a design consultant. The patient also had a biopsy sent to [place], [place] which eventually diagnosed immunologic vasculitis. The patient denies any known history of autoimmune disorders or chronic infections. The patient does have a history of Lyme disease as a child. The patient denies any recent international travel. The patient denies any fever, but does complain of pain occasionally myalgias. The patient was referred to the emergency department to be admitted by Dr. Jaramillo. The patient was initially going to be a direct admission, however, there were no beds available. PFSH Past Medical History Genitourinary: Yes (kidney problems as child.) Tetanus Vaccination: < 5 Years ?: Not LMP: 03/18/16 : 4 Para: 2 Miscarriage: 1 Social History Alcohol Use: Yes (occ) Tobacco Use: No Substance Use: No Allergies-Medications (Allergen,Severity, Reaction): Coded Allergies: No Known Allergies (Unverified , 03/29/16) Reported Meds & Prescriptions Reported Meds & Active Scripts Active Metoprolol Tartrate 25 Mg Tab 25 Mg PO BID Oxycodone-Acetaminophen 5-325 mg Tab 1-2 Tab PO Q4H PRN Triamcinolone Topical (Triamcinolone Acetonide) 0.1 % Oint 1 Applic TOPICAL Q6HR 7 Days Prednisone 10 Mg Tab 10 Mg PO DIRECTED 7 Days 20 mg po bid x 2 days, 10 mg po bid x 2 days, 10mg po daily x 3 days Review of Systems Except as stated in HPI: all other systems reviewed are Neg General / Constitutional: No: Fever Cardiovascular: Positive: Other (recent history of SVT with cardiac catheter performed) Respiratory: No: Shortness of Breath Gastrointestinal: No: Nausea, Vomiting, Abdominal Pain Musculoskeletal: Positive: Myalgias Skin: Positive Rash, Positive Lumps, Positive Other (as noted in history of present illness) Hematologic/Lymphatic: Positive: Other (no known history of autoimmune disorders) Physical Exam Narrative GENERAL: Awake, alert, pleasant 40-year-old female who appears her stated age and is in no acute respiratory distress. SKIN: Patient has multiple lesions of the upper extremities, shoulders, and legs anteriorly which are erythematous, elevated, some individual and some are confluent, once appear to sandeep, older ones appear are darker color and do not sandeep. HEAD: Atraumatic. Normocephalic. EYES: Pupils equal and round. No scleral icterus. No injection or drainage. ENT: No nasal bleeding or discharge. Mucous membranes pink and moist. NECK: Trachea midline. No JVD. CARDIOVASCULAR: Regular rate and rhythm. No murmur appreciated. RESPIRATORY: No accessory muscle use. Clear to auscultation. Breath sounds equal bilaterally. GASTROINTESTINAL: Abdomen soft, non-tender, nondistended. MUSCULOSKELETAL: No obvious deformities. No clubbing. No cyanosis. No edema. NEUROLOGICAL: Awake and alert. No obvious cranial nerve deficits. Motor grossly within normal limits. Normal speech. PSYCHIATRIC: Appropriate mood and affect; insight and judgment normal. Data Data Last Documented VS Vital Signs Date Time Temp Pulse Resp B/P Pulse Ox O2 Delivery O2 Flow Rate FiO2 03/29/16 12:07 98.1 03/29/16 12:02 100 20 143/68 Orders Admit Order (Ed Use Only) (03/29/16 12:27) [facility] Medical Decision Making Medical Screen Exam Complete: Yes Emergency Medical Condition: Yes Medical Record Reviewed: Yes Differential Diagnosis Differential diagnosis includes vasculitis, autoimmune urticaria, autoimmune disorder, TENS, Arriaga-Remberto syndrome, medication reaction, viral eruption. Narrative Course I called Dr. Jaramillo to admit the patient, he states he will place all orders and medications. The patient will be admitted to medical floor. Patient will need full admission and she most likely will need high-dose steroids and workup for underlying autoimmune disorder and possibly carcinoma. The patient is comfortable with this plan of care. Dr. Jaramillo personally evaluated the patient in the emergency department at 12:20 PM. Physician Communication Physician Communication I discussed the patient with Dr. Jaramillo who agrees with admission. Diagnosis Primary Impression: Urticarial vasculitis Condition: Stable Aj Maeys MD Mar 29, 2016 12:33
[2016-03-29] MEDS ORDERED: methylPREDNISolone SOD SUCC 125 MG/2 ML VIAL IV PUSH ONE (13:00)
--- NOTE | 2016-03-29 13:11 | HHI.HP ---
HPI Service [facility] Hospitalists Primary Care Physician Tani Massey MD Admission Diagnosis vasculitis Chief Complaint: painful rash and joints Travel History International Travel<30 Days: No Contact w/Intl Traveler <30 Da: No Traveled to Known Affected Are: No History of Present Illness Pt developed rapidly progressive rash/blisters/bullae around 03/05-03/06 The rash involved the arms but progressed to ant chest/upper back and later thigh/legs. She failed outpt therapy with bendadryl/prednisone/clinda. Extensive hx taken and no clear culprit. no meds, diseases, exposures, or pertinent travel.She was admitted to hospital and initial impressions were that some of the lesions could be herpetiform in nature and possible erythema multiforme secondary to a virus. She was placed on iv solumedrol and valtrex. antibiotics were stopped as this was not obviously bacterial. Her lesions gradually improved and by the time of discharge she just had some blotchy erythematous areas over shoulder and no vesicle or bullae over arms/legs. During that admission her limited AI w/up was unremarkable. We had discharged the patient home before the bx was available and the best answer that we could give at that time was a varicella rash which certainly could have explained much of the rash findings. She was sent home on a week of prednisone taper, triamcinolone 0.1 percent for a week, and she completed the valtrex. 2 days after discharge I received a call from the dermatopathologist in [place]. 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 I called the patient 2 days after discharge and she seemed to be doing fine. but as her prednisone tapered her painful skin lesions rapidly returned on neck/shoulder/behind ears/ arm/abdomen/legs and very painful joints. Raising the prednisone dose back up didn't stop the progression. I called and had pt seen by Frederick Pena this past Wednesday. While no specific dx was confirmed at that visit according to the pt they apparently had discussed Sweets syndrome. Another bx was taken on right arm. But over the weekend her painful lesions were not controlled with norco and prednisone and they rapidly spread. We tried to get her directly admitted but no beds were available..so I coordinated her through the ED. Review of Systems Other painful rash neck/back/chest/arms/legs/abdomen Past Family Social History Past Medical History urticarial vasculitis varicella positive IgG and IgM SVT right knee sprain. remote hx Lyme dz Reported Medications Metoprolol Tartrate 25 Mg Tab 25 Mg PO BID Oxycodone-Acetaminophen 5-325 mg Tab 1-2 Tab PO Q4H PRN Triamcinolone Topical (Triamcinolone Acetonide) 0.1 % Oint 1 Applic TOPICAL Q6HR 7 Days Prednisone Allergies: Coded Allergies: No Known Allergies (Unverified , 03/29/16) Family History nc Social History rare etoh. no tob Physical Exam Vital Signs rash located behind ears, neck, shoulder/arms/palm off hand/abdomen/upper chest/legs ...some nodular under the skin, erythematous base with blisters over some that quickly rupture. painful to palpate. left palm with deep nodular lesion with erythema on surface. heart reg lung cta abd s/nt ext no obvious synovitis. no pitting. Vital Signs Date Time Temp Pulse Resp B/P Pulse Ox O2 Delivery O2 Flow Rate FiO2 03/29/16 12:07 98.1 03/29/16 12:02 100 20 143/68 Assessment and Plan Problem List: (1) Urticarial vasculitis Status: Acute Plan: 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 uncontrolled on po meds outpt - Bx 03/13: as above discussed with Dermpath Sundar and felt most consistent with urticarial vasculitis At this point unclear if idiopathic or we can find a secondary cause for this condition. - On previous admission she had positive IgG and IgM for varicella with some recent exposure to shingles from her mother in law...we made tentative dx of varicella rash prior to the UV bx result. - I sent pt to local tree driller last week and another bx taken of the right arm to confirm the dx as that tree driller questioned Sweets syndrome. That bx is still pending. -In meantime the pt has has severe painful recurrence of these skin lesions involving neck/shoulder/chest/back/ arms/palms/legs - Autoimmune w/up initiated and pending. - Will call derm office and try to get 2nd bx result yoly - I called local Inside Trucker to get some guidance on rx and also outpt f/ u...await callback. -cont iv solumedrol and pain control. If UV confirmed then I would consider initiating a second drug such as colchicine/plaquenil or ?dapsone if suggested by Rheum in order to ultimately wean off the high dose steroids. (2) Varicella Status: Chronic (3) SVT (supraventricular tachycardia) Status: Chronic Plan: cont bb. tele. follows with Dr Gilbert. Physician Certification 2 Midnight Certification Type: Admission for Inpatient Services Order for Inpatient Services 3The services are ordered in accordance with Medicare regulations or non- Medicare payer requirements, as applicable. In the case of services not specified as inpatient-only, they are appropriately provided as inpatient services in accordance with the 2-midnight benchmark. Estimated LOS (days): 3 3 days is the estimated time the patient will need to remain in the hospital, assuming treatment plan goals are met and no additional complications. Post-Hospital Plan: Home [place] Jaramillo MD Mar 29, 2016 13:11
[2016-03-29] MEDS ORDERED: ACETAMINOPHEN 325 MG TAB PO PRN (13:15)
[2016-03-29] MEDS: ACETAMINOPHEN/HYDROcodone 325 MG/5 MG TAB PO PRN ×2 (14:20→17:48)
[2016-03-29 16:00] VITALS: BP 116/68; PULSE 93; RESP 20; TEMP 98.4; O2SAT 96
[2016-03-29 16:46] LABS: BICARBONATE 25.3 MEQ/L (21.0-32.0); MAGNESIUM 2.2 MG/DL (1.5-2.5); POTASSIUM 3.9 MEQ/L (3.5-5.1)
[2016-03-29 16:48] LABS: INDIRECT BILIRUBIN 0.3 MG/DL (0.0-0.8); TOTAL BILIRUBIN ADULT 0.4 MG/DL (0.2-1.0)
[2016-03-29 16:59] LABS: RHEUMATOID FACTOR TRIGGER LESS THAN 10.0 IU/ML (0.0-14.9)
[2016-03-29 17:02] LABS: AUTOMATED NEUTROPHIL # 6.9 TH/MM3 (1.8-7.7); BASOPHIL # 0.1 TH/MM3 (0-0.2); BASOPHIL % 0.7 % (0.0-2.0); EOSINOPHIL # 0.4 TH/MM3 (0-0.4); EOSINOPHIL % 3.7 % (0.0-4.0); HEMATOCRIT 37.6 % (35.0-46.0); HEMO FLAGS DIFF FINAL; LYMPH % 17.6 % (9.0-44.0); LYMPHOCYTE # 1.7 TH/MM3 (1.0-4.8); MEAN CELL VOLUME 86.9 FL (80.0-100.0); MEAN CORPUSCULAR HEMOGLOBIN 30.9 PG (27.0-34.0); MEAN CORPUSCULAR HGB CONC 35.6 % (32.0-36.0); MONO % 7.5 % (0.0-8.0); NEUT % 70.5 % (16.0-70.0); PLATELET COUNT 233 TH/MM3 (150-450); RED BLOOD COUNT 4.33 MIL/MM3 (4.00-5.30); RED CELL DISTRIBUTION WIDTH 13.1 % (11.6-17.2); WHITE BLOOD COUNT 9.8 TH/MM3 (4.0-11.0)
[2016-03-29] MEDS: methylPREDNISolone SOD SUCC 125 MG/2 ML VIAL IV PUSH SCH ×2 (17:50→23:44)
[2016-03-29] MEDS: TRIAMCINOLONE ACETONIDE 0.1% OINT 15 GM TUBE TOPICAL SCH ×2 (18:00→23:44)
[2016-03-29 20:00] VITALS: BP 112/63; PULSE 101; RESP 20; TEMP 98.9; O2SAT 97
[2016-03-29] MEDS ORDERED: LORATADINE 10 MG TAB PO ONE (20:45)
[2016-03-29] MEDS: METOPROLOL TARTRATE 25 MG TAB PO SCH (20:56)
[2016-03-29 21:00] VITALS: PULSE 91
[2016-03-29 22:19] LABS: BLOOD, URINE SMALL (NEG); COMMENT (UR) CULT NOT INDICATED; CULTURE IF INDICATED CULT NOT INDICATED; GLUCOSE,URINE 1000 mg/dL (NEG); KETONE, URINE 10 mg/dL (NEG); MUCUS URINE FEW /lpf (OCC); NITRITE,URINE NEG (NEG); PH, URINE 5.5 (5.0-8.5); URINE COLOR YELLOW (YELLW/STRAW)
[2016-03-30] VITALS: BP 94/55; PULSE 86; RESP 20; TEMP 98; O2SAT 95
[2016-03-30] MEDS: TRIAMCINOLONE ACETONIDE 0.1% OINT 15 GM TUBE TOPICAL SCH ×4 (05:20→23:55)
[2016-03-30] MEDS: methylPREDNISolone SOD SUCC 125 MG/2 ML VIAL IV PUSH SCH ×4 (05:20→23:51)
[2016-03-30 07:47] VITALS: BP 108/66; PULSE 85; RESP 20; TEMP 98; O2SAT 94
[2016-03-30] MEDS: PANTOPRAZOLE SOD 40 MG DELAYED RELEASE TAB PO SCH (08:58)
[2016-03-30] MEDS: ACETAMINOPHEN/HYDROcodone 325 MG/5 MG TAB PO PRN ×2 (08:59→20:33)
[2016-03-30] MEDS: LORATADINE 10 MG TAB PO SCH (08:59)
[2016-03-30] MEDS: METOPROLOL TARTRATE 25 MG TAB PO SCH ×2 (08:59→20:33)
[2016-03-30 12:00] VITALS: BP 110/73; PULSE 88; RESP 19; TEMP 96.9; O2SAT 95
--- NOTE | 2016-03-30 13:48 | HHI.PR ---
Subjective Remarks feels a little better with iv solumedrol. Objective Vitals skin: erythematous/nodular and sometime vesicular lesions on back/neck/chest/arms/palms/legs. mild improvement heart reg lung cta abd s/nt ext no pitting Vital Signs Date Time Temp Pulse Resp B/P Pulse Ox O2 Delivery O2 Flow Rate FiO2 03/30/16 12:00 96.9 88 19 110/73 95 03/30/16 09:59 16 03/30/16 07:47 98.0 85 20 108/66 94 03/30/16 00:00 98.0 86 20 94/55 95 03/29/16 21:00 91 03/29/16 20:00 98.9 101 20 112/63 97 03/29/16 17:34 18 03/29/16 16:00 98.4 93 20 116/68 96 03/29/16 03/29/16 03/30/16 15:00 23:00 07:00 Intake Total 480 ml 360 ml Balance 480 ml 360 ml Intake Oral 480 ml 360 ml # Voids 4 2 # Bowel Movements 0 0 Result Diagram: 03/29/16 1535 03/29/16 1535 A/P Problem List: (1) Urticarial vasculitis Status: Acute Plan: 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 uncontrolled on po meds outpt - Bx 03/13: Discussed with Dermpath Sundar and felt most consistent with urticarial vasculitis At this point unclear if idiopathic or we can find a secondary cause for this condition. - On previous admission she had positive IgG and IgM for varicella with some recent exposure to shingles from her mother in law...we made tentative dx of varicella rash prior to the UV bx result. - I sent pt to local nanotechnologist last week and another bx taken of the right arm to confirm the dx as that nanotechnologist questioned Sweets syndrome. That bx is still pending. -In meantime the pt has has severe painful recurrence of these skin lesions involving neck/shoulder/chest/back/ arms/palms/legs - Autoimmune w/up initiated and pending. So far no apparently involvement of heart/lung/renal. - Will call derm office and try to get 2nd bx result yoly - I called local Dater Assembler to get some guidance on rx and also outpt f/ u...await callback. -cont iv solumedrol and pain control. If UV confirmed then I would consider initiating a second drug such as colchicine/plaquenil or ?dapsone if suggested by Rheum in order to ultimately wean off the high dose steroids. (2) Varicella Status: Chronic (3) SVT (supraventricular tachycardia) Status: Chronic Plan: cont bb. tele. follows with Dr Gilbert. Bay Jaramillo MD Mar 30, 2016 13:48 Bay Jaramillo MD Mar 30, 2016 13:48
[2016-03-30 14:43] LABS: ANA SCREEN NEG (NEG)
[2016-03-30 16:00] VITALS: BP 118/68; PULSE 78; RESP 18; TEMP 97.4; O2SAT 95
[2016-03-30 20:00] VITALS: BP 117/66; PULSE 110; RESP 22; TEMP 97.8; O2SAT 96
[2016-03-31] VITALS (7 sets, daily range): BP systolic 103–122; BP diastolic 55–80; PULSE 67–98; RESP 17–20; TEMP 97.1–97.7; O2SAT 94–96
[2016-03-31] MEDS: methylPREDNISolone SOD SUCC 125 MG/2 ML VIAL IV PUSH SCH ×3 (05:30→16:51)
[2016-03-31] MEDS: TRIAMCINOLONE ACETONIDE 0.1% OINT 15 GM TUBE TOPICAL SCH ×3 (05:34→16:53)
--- NOTE | 2016-03-31 09:50 | HHI.PR ---
Subjective Remarks joints painful. rash improving. Objective Vitals rash: maculopapular/vesicular in places on red base.nodular lesions improving on neck/chest/back/arms/legs/palms heart reg lung cta abd s/nt ext no edema Vital Signs Date Time Temp Pulse Resp B/P Pulse Ox O2 Delivery O2 Flow Rate FiO2 03/31/16 08:00 97.7 80 17 115/65 95 03/31/16 04:00 97.1 98 20 103/61 95 03/31/16 00:00 97.2 87 20 104/55 96 03/30/16 20:00 97.8 110 22 117/66 96 03/30/16 16:00 97.4 78 18 118/68 95 03/30/16 12:00 96.9 88 19 110/73 95 03/30/16 09:59 16 03/30/16 03/30/16 03/31/16 15:00 23:00 07:00 Intake Total 240 ml 480 ml 480 ml Output Total 400 ml Balance -160 ml 480 ml 480 ml Intake Oral 240 ml 480 ml 480 ml IV Total 0 ml Output Urine Total 400 ml # Voids 1 3 # Bowel Movements 0 1 0 Result Diagram: 03/29/16 1535 03/29/16 1535 A/P Problem List: (1) Urticarial vasculitis Status: Acute Plan: 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 uncontrolled on po meds outpt - Bx 03/13: Discussed with Stephanie Kwok and felt most consistent with urticarial vasculitis At this point unclear if idiopathic or we can find a secondary cause for this condition. - On previous admission she had positive IgG and IgM for varicella with some recent exposure to shingles from her mother in law...we made tentative dx of varicella rash prior to the UV bx result. - I sent pt to local cold storage supervisor last week and another bx taken of the right arm to confirm the dx as that cold storage supervisor questioned Sweets syndrome. That bx is still pending. -In meantime the pt has has severe painful recurrence of these skin lesions involving neck/shoulder/chest/back/ arms/palms/legs - Autoimmune w/up initiated and pending. So far no apparently involvement of heart/lung/renal. - Discussed with doctor at [facility] today. 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 She will call [facility] today to see if they can expedite the 2nd bx result. Also if it is Sweet syndrome the question next is to exclude an underlying malignancy. I spoke to pt/ regarding this scenario. - I called local Thermostatic Controls Supervisor to get some guidance on rx and also outpt f/ u...await callback. -cont iv solumedrol and pain control. If UV confirmed then I would consider initiating a second drug such as colchicine/plaquenil or ?dapsone if suggested by Rheum in order to ultimately wean off the high dose steroids. (2) Varicella Status: Chronic (3) SVT (supraventricular tachycardia) Status: Chronic Plan: cont bb. tele. follows with Dr Gilbert. Bay Jaramillo MD Mar 31, 2016 09:50
[2016-03-31] MEDS: METOPROLOL TARTRATE 25 MG TAB PO SCH ×2 (09:54→21:26)
[2016-03-31] MEDS: LORATADINE 10 MG TAB PO SCH (09:54)
[2016-03-31] MEDS: ACETAMINOPHEN/HYDROcodone 325 MG/5 MG TAB PO PRN ×3 (09:54→21:32)
[2016-03-31] MEDS: PANTOPRAZOLE SOD 40 MG DELAYED RELEASE TAB PO SCH (09:54)
[2016-03-31 11:25] LABS: IMMUNOGLOBULIN A 215 MG/DL (75-416)
[2016-03-31 11:34] LABS: IMMUNOGLOBULIN G 793 MG/DL (690-1700); IMMUNOGLOBULIN M 153 MG/DL (57-348)
[2016-04-01] VITALS: BP 111/65; PULSE 79; RESP 18; TEMP 96.6; O2SAT 97
[2016-04-01] MEDS: TRIAMCINOLONE ACETONIDE 0.1% OINT 15 GM TUBE TOPICAL SCH ×5 (01:01→22:06)
[2016-04-01] MEDS: methylPREDNISolone SOD SUCC 125 MG/2 ML VIAL IV PUSH SCH ×2 (01:01→05:45)
[2016-04-01 04:00] VITALS: BP 106/56; PULSE 68; RESP 18; TEMP 96.7; O2SAT 95
[2016-04-01 08:00] VITALS: BP 100/57; PULSE 75; RESP 17; TEMP 97.3; O2SAT 96
[2016-04-01] MEDS: PANTOPRAZOLE SOD 40 MG DELAYED RELEASE TAB PO SCH (09:47)
[2016-04-01] MEDS: METOPROLOL TARTRATE 25 MG TAB PO SCH ×2 (09:48→18:19)
[2016-04-01] MEDS: LORATADINE 10 MG TAB PO SCH (09:48)
[2016-04-01] MEDS: ENOXAPARIN SODIUM 40 MG/0.4 ML SYRINGE SQ SCH (09:48)
[2016-04-01] MEDS: ACETAMINOPHEN/HYDROcodone 325 MG/5 MG TAB PO PRN ×3 (09:55→22:04)
[2016-04-01] MEDS ORDERED: DIATRIZOATE MEGLUM/DIATRIZOATE SOD 9 ML CUP PO ONE (10:30)
--- NOTE | 2016-04-01 11:19 | RADRPT ---
EXAM DATE/TIME: 04/01/2016 09:55 [facility] COMPARISON: US LEG RIGHT VENOUS DOPPLER, March 15, 2016, 22:09. INDICATIONS : Right leg pain and swelling. MEDICAL HISTORY : Irregular heartbeat. SURGICAL HISTORY : Heart cath. ENCOUNTER: Initial ACUITY: 1 day PAIN SCORE: 3/10 LOCATION: Right leg. TECHNIQUE: Venous ultrasound of the leg was performed from the inguinal ligament to the proximal calf. Real-shweta e, color Doppler and spectral tracing, compression and augmentation techniques were used. FINDINGS: There is normal compressibility of the deep venous system from the inguinal region to the proximal ca lf. No echogenic clot is seen in the lumen of the common femoral, femoral, popliteal, and posterior tibial veins. There is a normal response of the venous system to proximal and distal augmentation an d respiration. CONCLUSION: Negative exam with no evidence of deep venous thrombosis. Neal Mantilla MD on April 01, 2016 at 11:18 Board Certified Radiologist. This report was verified electronically.
[2016-04-01 12:00] VITALS: BP 103/64; PULSE 78; RESP 18; TEMP 97.8; O2SAT 97
[2016-04-01] MEDS ORDERED: predniSONE 10 MG TAB PO ONE (12:00)
[2016-04-01 13:06] LABS: BETA HCG QUANT LESS THAN 1 MIU/ML (0-5)
[2016-04-01 13:54] LABS: SM ANTIBODY <1.0 NEG AI (<1.0 NEGATIVE); SM/RNP ANTIBODY <1.0 NEG AI (<1.0 NEGATIVE)
--- NOTE | 2016-04-01 15:20 | RADRPT ---
EXAM DATE/TIME: 04/01/2016 14:57 [facility] COMPARISON: No previous studies available for comparison. INDICATIONS : Possible skin cancer; evaluate for neoplasm. ORAL CONTRAST: Prescribed oral contrast ingested. RADIATION DOSE: 18.71 CTDIvol (mGy) ; Combined studies - Thorax/Abdomen/Pelvis MEDICAL HISTORY : None SURGICAL HISTORY : None. ENCOUNTER: Initial ACUITY: 1 day PAIN SCALE: 0/10 LOCATION: Abdomen/pelvis TECHNIQUE: Volumetric scanning of the abdomen and pelvis was performed. Using automated exposure control and ad justment of the mA and/or kV according to patient size, radiation dose was kept as low as reasonably achievable to obtain optimal diagnostic quality images. FINDINGS: LOWER LUNGS: The visualized lower lungs are clear. LIVER: Homogeneous density without lesion. There is no dilation of the biliary tree. No calcified gallston es. SPLEEN: Normal size without lesion. PANCREAS: Within normal limits. KIDNEYS: Normal in size and shape. There is no mass, stone, or hydronephrosis. ADRENAL GLANDS: Within normal limits. VASCULAR: There is no aortic aneurysm. BOWEL/MESENTERY: The stomach, small bowel, and colon demonstrate no acute abnormality. There is no free intraperitone al air or fluid. ABDOMINAL WALL: Within normal limits. There is mild increased density and small gas collection in the subcutaneous fa t along the left lower anterior abdominal wall musculature. RETROPERITONEUM: There is no lymphadenopathy. BLADDER: No wall thickening or mass. REPRODUCTIVE: Within normal limits. INGUINAL: There is no lymphadenopathy or hernia. MUSCULOSKELETAL: Within normal limits for patient age. CONCLUSION: 1. Small gas collection and apparent inflammatory change in the subcutaneous fat over the left lower anterior abdominal wall musculature. This may be due to recent instrumentation. 2. No evidence of metastatic disease on this noncontrast CT. Neal Mantilla MD on April 01, 2016 at 15:14 Board Certified Radiologist. This report was verified electronically.
--- NOTE | 2016-04-01 15:25 | RADRPT ---
EXAM DATE/TIME: 04/01/2016 14:57 [facility] COMPARISON: No previous studies available for comparison. INDICATIONS : Possible skin cancer; evaluate for neoplasm. RADIATION DOSE: 18.71 CTDIvol (mGy) ; Combined studies - Thorax/Abdomen/Pelvis MEDICAL HISTORY : None SURGICAL HISTORY : None. ENCOUNTER: Initial ACUITY: 1 day PAIN SCALE: 0/10 LOCATION: chest TECHNIQUE: Volumetric scanning of the chest was performed. Using automated exposure control and adjustment of t he mA and/or kV according to patient size, radiation dose was kept as low as reasonably achievable to obtain optimal diagnostic quality images. FINDINGS: LUNGS: There is no consolidation or pneumothorax. No concerning pulmonary nodule is visualized. PLEURAE: There is no pleural thickening or pleural effusion. MEDIASTINUM: The heart and great vessels demonstrate no acute abnormality. There is no mediastinal or hilar lymph adenopathy. AXILLAE: Within normal limits. No lymphadenopathy. MUSCULOSKELETAL: Within normal limits for patient age. MISCELLANEOUS: The visualized upper abdominal organs demonstrate no acute abnormality. CONCLUSION: Negative noncontrast chest CT with no evidence of metastatic disease. Neal Mantilla MD on April 01, 2016 at 15:18 Board Certified Radiologist. This report was verified electronically.
[2016-04-01 15:55] LABS: MYELOPEROXIDASE LESS THAN 1.0 AI (<1.0); PROTEINASE-3 LESS THAN 1.0 AI (<1.0)
[2016-04-01 16:00] VITALS: BP 115/75; PULSE 75; RESP 17; TEMP 97.5; O2SAT 96
[2016-04-01 20:00] VITALS: BP 111/72; PULSE 73; RESP 18; TEMP 98; O2SAT 97
--- NOTE | 2016-04-01 20:51 | HHI.PR ---
Subjective Remarks generalized aches/pains right leg swollen Objective Vitals heart reg lung cta abd s/nt ext mild rle swelling. macular erythematous rash over back/arms/legs palm improving. neck improving. no vesicles noted today. 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 uncontrolled on po meds outpt - Bx 03/13: Discussed with Dermiva Kwok and felt most consistent with urticarial vasculitis At this point unclear if idiopathic or we can find a secondary cause for this condition. - On previous admission she had positive IgG and IgM for varicella with some recent exposure to shingles from her mother in law...we made tentative dx of varicella rash prior to the UV bx result. - I sent pt to local assurance senior last week and another bx taken of the right arm to confirm the dx as that assurance senior questioned Sweets syndrome. That bx is still pending. -In meantime the pt has has severe painful recurrence of these skin lesions involving neck/shoulder/chest/back/ arms/palms/legs - Autoimmune w/up initiated and pending. But so far autoimmune w/up negative.So far no apparently involvement of heart/lung/renal. - Discussed with doctor at [facility].. 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 She called [facility] to expedite the 2nd bx result. The biopsy was negative for vasculitis/sweets/AI process or dermatitis herpetiformis - Doubt malignancy but some w/up initiated now and will refer for usual screenings outpt to her machine i engraver. - will stop iv solumedrol and try to convert back to prednisone and then immediate f/u to dermatology who will taper slowly based on symptoms. - Also per my discussion with her assurance senior will need to get another bx taken and that can be f/u as outpt. - Her IgM still positive for varicella....?no apparent problem with her immune system - I called local Materials Handling Coordinator to get some guidance on rx and also outpt f/ u...await callback. - (2) Varicella Status: Chronic (3) SVT (supraventricular tachycardia) Status: Chronic Plan: cont bb. tele. follows with Dr Gilbert. Bay Jaramillo MD Apr 01, 2016 20:51
[2016-04-01 21:44] LABS: BLOOD, URINE NEG (NEG); COMMENT (UR) CULT NOT INDICATED; CULTURE IF INDICATED CULT NOT INDICATED; GLUCOSE,URINE 1000 mg/dL (NEG); HYALINE CAST, URINE 1 /lpf (RARE); KETONE, URINE TRACE mg/dL (NEG); MUCUS URINE FEW /lpf (OCC); NITRITE,URINE NEG (NEG); SQUAMOUS EPITHELIAL CELL URINE 1 /hpf (0-5); URINE COLOR YELLOW (YELLW/STRAW)
[2016-04-01] MEDS: predniSONE 10 MG TAB PO SCH (22:03)
[2016-04-01] MEDS: valACYclovir HCL 500 MG TAB PO SCH (22:16)
[2016-04-02] VITALS: BP 111/63; PULSE 84; RESP 18; TEMP 97.6; O2SAT 96
[2016-04-02 03:30] VITALS: BP 100/58; PULSE 64; RESP 18; TEMP 97.6; O2SAT 95
[2016-04-02] MEDS: valACYclovir HCL 500 MG TAB PO SCH ×3 (05:26→21:23)
[2016-04-02] MEDS: ACETAMINOPHEN/HYDROcodone 325 MG/5 MG TAB PO PRN ×3 (05:26→23:07)
[2016-04-02] MEDS: TRIAMCINOLONE ACETONIDE 0.1% OINT 15 GM TUBE TOPICAL SCH ×4 (05:27→23:07)
[2016-04-02 07:31] LABS: URINE TOTAL PROTEIN TIMED 21.4 MG/DL
[2016-04-02 08:00] VITALS: BP 112/59; PULSE 69; RESP 19; TEMP 97.5; O2SAT 96
[2016-04-02] MEDS: METOPROLOL TARTRATE 25 MG TAB PO SCH ×2 (08:27→17:39)
[2016-04-02] MEDS: predniSONE 10 MG TAB PO SCH ×2 (08:27→21:22)
[2016-04-02] MEDS: LORATADINE 10 MG TAB PO SCH (08:27)
[2016-04-02] MEDS: PANTOPRAZOLE SOD 40 MG DELAYED RELEASE TAB PO SCH (08:27)
[2016-04-02] MEDS: ENOXAPARIN SODIUM 40 MG/0.4 ML SYRINGE SQ SCH (08:27)
[2016-04-02] MEDS ORDERED: GLUCAGON 1 MG/ML VIAL OTHER PRN (09:15)
[2016-04-02] MEDS ORDERED: DEXTROSE 50% IN WATER 50 ML VIAL(D50) IV PUSH PRN (09:15)
[2016-04-02] MEDS ORDERED: LIDOCAINE 1%/EPINEPHrine 1:100,000 SOLN 20 ML VIAL INFIL ONE (10:00)
[2016-04-02] MEDS: INSULIN ASPART SUPPLEMENTAL SCALE SQ SCH ×3 (11:00→21:23)
[2016-04-02] MEDS ORDERED: LIDOCAINE 1%/EPINEPHrine 1:100,000 SOLN 30 ML VIAL ONE (11:16)
[2016-04-02 12:00] VITALS: BP 117/58; PULSE 87; RESP 19; TEMP 97; O2SAT 97
[2016-04-02 16:00] VITALS: BP 130/62; PULSE 92; RESP 19; TEMP 97.2; O2SAT 97
[2016-04-02 20:00] VITALS: BP 123/69; PULSE 70; RESP 18; TEMP 97.3; O2SAT 97
--- NOTE | 2016-04-02 20:00 | HHI.PR ---
Subjective Remarks joints painful. no apparent new blisters\ denies any abdomen pain. no n/v or fevers. Objective Vitals areas of macular erythema over shoulder and upper back fading macular lesions over upper chest and arms/legs palmar nodular lesion on left hand fading. no erythema or tenderness over left upper or lower quadrant. no pitting edema Vital Signs Date Time Temp Pulse Resp B/P Pulse Ox O2 Delivery O2 Flow Rate FiO2 04/02/16 18:39 18 04/02/16 16:00 97.2 92 19 130/62 97 04/02/16 12:00 97.0 87 19 117/58 97 04/02/16 08:00 97.5 69 19 112/59 96 04/02/16 03:30 97.6 64 18 100/58 95 04/02/16 00:00 97.6 84 18 111/63 96 04/01/16 20:00 98.0 73 18 111/72 97 04/01/16 04/01/16 04/02/16 14:59 22:59 06:59 Intake Total 240 ml 360 ml 360 ml Output Total 350 ml 500 ml Balance -110 ml -140 ml 360 ml Intake Oral 240 ml 360 ml 360 ml Output Urine Total 350 ml 500 ml # Voids 1 # Bowel Movements 0 0 0 Result Diagram: 03/29/16 1535 03/29/16 1535 A/P Problem List: (1) Urticarial vasculitis Status: Acute Plan: 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 uncontrolled on po meds outpt - Bx 03/13: Discussed with [facility] and felt most consistent with urticarial vasculitis At this point unclear if idiopathic or we can find a secondary cause for this condition. - On previous admission she had positive IgG and IgM for varicella with some recent exposure to shingles from her mother in law...we made tentative dx of varicella rash prior to the UV bx result. - I sent pt to local financial sales associate last week and another bx taken of the right arm to confirm the dx as that financial sales associate questioned Sweets syndrome. -In meantime the pt has has severe painful recurrence of these skin lesions involving neck/shoulder/chest/back/ arms/palms/legs - Autoimmune w/up initiated and so far autoimmune w/up negative.So far no apparently involvement of heart/lung/renal. - Discussed with doctor at [facility].. 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 She called [facility] to expedite the 2nd bx result. The biopsy was negative for vasculitis/sweets/AI process or dermatitis herpetiformis - Doubt malignancy but some w/up initiated now and negative...and will refer for usual screenings outpt to her customer orders clerk. -converted back to prednisone and then immediate f/u to dermatology who will taper slowly based on symptoms. - Also per my discussion with her financial sales associate will need to get another bx taken and that can be f/u as outpt. Discussed with Dr Urbina who has been her surgeon. he will consult and biopsy her today. Plan for 2 bx for H&E and Immunoflourescence. - Her IgM still positive for varicella....?no apparent problem with her immune system. on valtrex x 5 days - I called local Glove Parts Inspector to get some guidance on rx and also outpt f/ u...await callback. - Of note her family is worried about Lyme disease as she was in [place] in January. She was also bitten by spider on fingertip. these lesions would not appear obvious for Lyme disease. -The plan is for d/c home tomorrow with pcp and derm f/u. If her sx's worsen then she may need referral to Glove Parts Inspector or even Tertiary center if the 3rd bx is not conclusive. (2) Varicella Status: Chronic (3) SVT (supraventricular tachycardia) Status: Chronic Plan: cont bb. tele. follows with Dr Gilbert. Bay Jaramillo MD Apr 02, 2016 20:00
[2016-04-03] VITALS: BP 109/63; PULSE 77; RESP 17; TEMP 96.7; O2SAT 96
[2016-04-03 04:00] VITALS: BP 112/66; PULSE 68; RESP 17; TEMP 96.2; O2SAT 97
[2016-04-03 05:20] LABS: BICARBONATE 28.1 MEQ/L (21.0-32.0); MAGNESIUM 2.3 MG/DL (1.5-2.5)
[2016-04-03] MEDS: INSULIN ASPART SUPPLEMENTAL SCALE SQ SCH ×2 (06:29→10:41)
[2016-04-03] MEDS: TRIAMCINOLONE ACETONIDE 0.1% OINT 15 GM TUBE TOPICAL SCH ×2 (06:29→11:28)
[2016-04-03] MEDS: valACYclovir HCL 500 MG TAB PO SCH (06:29)
[2016-04-03] MEDS: METOPROLOL TARTRATE 25 MG TAB PO SCH (08:12)
[2016-04-03] MEDS: ENOXAPARIN SODIUM 40 MG/0.4 ML SYRINGE SQ SCH (08:12)
[2016-04-03] MEDS: predniSONE 10 MG TAB PO SCH (08:12)
[2016-04-03] MEDS: PANTOPRAZOLE SOD 40 MG DELAYED RELEASE TAB PO SCH (08:12)
[2016-04-03] MEDS ORDERED: POTASSIUM PHOSPHATE MONOBASIC 500 MG TAB PO ONE ×2 (08:30→12:00)
[2016-04-03 08:33] VITALS: BP 116/59; PULSE 66; RESP 16; TEMP 97.1; O2SAT 97
[2016-04-03] MEDS: ACETAMINOPHEN/HYDROcodone 325 MG/5 MG TAB PO PRN (08:49)
[2016-04-03] MEDS ORDERED: VALT500T PO (11:11)
[2016-04-03] MEDS ORDERED: OSCA200T PO (11:11)
[2016-04-03] MEDS ORDERED: PANT40TA3 PO (11:11)
[2016-04-03] MEDS ORDERED: PRED10 PO ×2 (11:11→11:20)
[2016-04-03] MEDS ORDERED: NORC5TAB PO (11:12)
--- NOTE | 2016-04-03 11:13 | HHI.DCPOC ---
Discharge Care Plan Diagnosis: (1) Urticarial vasculitis (2) Varicella (3) SVT (supraventricular tachycardia) (4) Vitamin D deficiency (5) Hypophosphatemia (6) Steroid-induced hyperglycemia Goals to Promote Your Health * To prevent worsening of your condition and complications * To maintain your health at the optimal level Directions to Meet Your Goals Take your medications as prescribed Follow your dietary instruction Follow activity as directed Keep your appointments as scheduled Take your immunizations and boosters as scheduled If your symptoms worsen call your PCP, if no PCP go to Urgent Care Center or Emergency Room Smoking is Dangerous to Your Health. Avoid second hand smoke Call the 24-hour hour crisis hotline for domestic abuse at Bay Jaramillo MD Apr 03, 2016 11:13
[2016-04-03] MEDS ORDERED: ERGOCALCIFEROL (VIT D2) 50,000 UNIT CAP PO ONE (11:15)
[2016-04-03 12:15] VITALS: BP 124/66; PULSE 65; RESP 16; TEMP 97.4; O2SAT 97
[2016-04-03 13:03] LABS: BLOOD, URINE NEG (NEG); GLUCOSE,URINE NEG (NEG); KETONE, URINE NEG (NEG); MUCUS URINE FEW /lpf (OCC); NITRITE,URINE NEG (NEG); PH, URINE 6.5 (5.0-8.5); SQUAMOUS EPITHELIAL CELL URINE 4 /hpf (0-5); URINE COLOR YELLOW (YELLW/STRAW)
[2016-04-03 13:12] LABS: COMMENT (UR) CULT NOT INDICATED; CULTURE IF INDICATED CULT NOT INDICATED
--- NOTE | 2016-04-03 13:49 | MP ---
cc: [facility], SYLVESTER DUKE M.D., RICHARD L. M.D. BIANCHI, JOSEPH D. M.D. DATE OF SURGERY: 04/02/2016. PREOPERATIVE DIAGNOSIS: Unusual body skin rash POSTOPERATIVE DIAGNOSIS Unusual body skin rash OPERATIVE PROCEDURE PERFORMED: Skin biopsy x2 left arm for aid in diagnosis for skin lesions. 4 mm punch biopsy left upper extremity two skin lesions / rash. SURGEON: Nicola Urbina MD. ANESTHESIA: Local. INDICATIONS FOR THE PROCEDURE: This is a 40-year-old female who has had this unusual rash. She had seen a jig box operator as an outpatient. She had some outpatient treatment but now she is in the hospital. The primary team has asked me to perform a biopsy. They have talked to the jig box operator who does not have staff privileges here and they asked me to perform a special skin biopsy to aid in the difficult diagnosis. For this reason, plans were made for the above. DESCRIPTION OF THE PROCEDURE IN DETAIL: The patient was in her room. The left arm was prepped with Betadine. She marked two areas that she thinks are new rashes. They are improved from what they were about a month ago but she has these repeated rashes. The areas were marked. A time out was done. We anesthetized two separate areas with a Marcaine solution. A 4 mm punch biopsy was obtained from both areas in the upper extremity. This was placed in a sterile cup with saline. I have already talked to the pathologists and they were aware that two stains needed to be done for H&E and placed in James's media. The two areas were then closed with a 4-0 Monocryl. A bandage was applied. MD TRAM Nam/DANTE /4:05 PM /1:41 PM ENZO
[2016-04-03 19:52] LABS: IMMUNE COMPLEX C1Q BINDING 2.1 (< OR = 25.1)
--- NOTE | 2016-04-03 21:42 | HHI.DS ---
Discharge Summary Admission Date Mar 29, 2016 at 12:29 Discharge Date: Apr 03, 2016 Admitting Diagnosis vasculitis (1) Urticarial vasculitis Diagnosis: Principal (2) Varicella Diagnosis: Principal (3) SVT (supraventricular tachycardia) Diagnosis: Secondary (4) Hypophosphatemia Diagnosis: Principal (5) Vitamin D deficiency Diagnosis: Principal (6) Steroid-induced hyperglycemia Diagnosis: Principal Brief History Pt developed rapidly progressive rash/blisters/bullae around 03/05-03/06 The rash involved the arms but progressed to ant chest/upper back and later thigh/legs. She failed outpt therapy with bendadryl/prednisone/clinda. Extensive hx taken and no clear culprit. no meds, diseases, exposures, or pertinent travel.She was admitted to hospital and initial impressions were that some of the lesions could be herpetiform in nature and possible erythema multiforme secondary to a virus. She was placed on iv solumedrol and valtrex. antibiotics were stopped as this was not obviously bacterial. Her lesions gradually improved and by the time of discharge she just had some blotchy erythematous areas over shoulder and no vesicle or bullae over arms/legs. During that admission her limited AI w/up was unremarkable. We had discharged the patient home before the bx was available and the best answer that we could give at that time was a varicella rash which certainly could have explained much of the rash findings. She was sent home on a week of prednisone taper, triamcinolone 0.1 percent for a week, and she completed the valtrex. 2 days after discharge I received a call from the dermatopathologist in [place]. 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 I called the patient 2 days after discharge and she seemed to be doing fine. but as her prednisone tapered her painful skin lesions rapidly returned on neck/shoulder/behind ears/ arm/abdomen/legs and very painful joints. Raising the prednisone dose back up didn't stop the progression. I called and had pt seen by Frederick Pena this past Wednesday. While no specific dx was confirmed at that visit according to the pt they apparently had discussed Sweets syndrome. Another bx was taken on right arm. But over the weekend her painful lesions were not controlled with norco and prednisone and they rapidly spread. We tried to get her directly admitted but no beds were available..so I coordinated her through the ED. CBC/BMP: 04/03/16 0427 Significant Findings Laboratory Tests Test 04/01/16 04/03/16 04/03/16 20:00 04:27 12:26 Urine Glucose (UA) 1000 mg/dL (NEG) Urine Ketones TRACE mg/dL (NEG) Urine Mucus FEW /lpf (OCC) FEW /lpf (OCC) Estimat Glomerular Filtration 63 ML/MIN (>89) Rate Random Glucose 160 MG/DL (74-106) Calcium Level 7.6 MG/DL (8.5-10.1) Phosphorus Level 1.7 MG/DL (2.5-4.9) 25-Hydroxy Vitamin D Total 7.8 ng/ML (30-100) Urine Turbidity HAZY (CLEAR) Hospital Course Readmitted for rapidly progressive rash presumed to be urticarial vasculitis from recent bx with severe pain. uncontrolled on po meds outpt On the first admission Pt gave a hx of shingles exposure recently, and had positive IgG and IgM varicella from blood. We treated her for presumed varicella infection with valtrex and also sent her home on prednisone for the rash that improved on iv solumedrol. After first discharge her Bx 03/13 of left arm came back..I Discussed with Dermpathologist in [facility] and she felt it most consistent with urticarial vasculitis. I had her evaluated by a local debt collector and another bx taken of the right arm to confirm the dx as that debt collector questioned Sweets syndrome. As she tapered on the prednisone the rash and joint pains returned and she was readmitted. On the second admission pt was started back on the iv solumedrol and valtrex with again remarkable improvement in the rash and some improvement of her joint pains. During that admission she had an extensive autoimmune w/up and some infectious and malignancy evaluation as well. During the second admission the second right arm biopsy returned and was negative for vasculitis/ sweets syndrome/AI process or dermatitis herpetiformis. It was recommended by dermatology to obtain new bx's and we took 2 punch bx's of the left arm and sent to dermpathology again. those are pending at d/c. The test results during the hospital stay include essential nml cbc aside from mild elevation of neutrophils probably from steroids. fluctuating gfr but no renal failure. esr that was 10..then 47..then 17 at discharge. We ordered gustavo x 2, ds-dna, anti barron, anti time motion analyst, RF, anca's, complement levels , spep, urine immunofixation, hepatitis a,b, c, EBV, CMV, ,anti ssa, anti ssb,, immunoglobulin levels all negative aside from mild low albumen which has been present for many years. after d/c her cryoglobulin level was found to be mildly elevated. Her anti ccp and lyme titers pending as are the 3rd and 4rth bx of skin. Of note her family is worried about Lyme disease as she was in [place] in January. She was also bitten by spider on fingertip. these lesions would not appear obvious for Lyme disease. -Pt had a CT C/A/P to exclude lymphadenopathy. there was nonspecific gas collection in left lower abdomen fat layer. possibly from injections. Pt was getting lovenox in this area. I reviewed her films with our general surgeon and he felt it wasn't anything surgical at this point and he was not concerned for an infection. Also pt had no pain to palpation over this area on exam and the area was not red or swollen. Pt Condition on Discharge: Stable Discharge Disposition: Discharge Home Discharge Instructions DIET: Follow Instructions for: As Tolerated, No Restrictions Additional Diet Instructions: drink plenty of fluids. Activities you can perform: Regular-No Restrictions Follow up Referrals: Cardiology - 2 Weeks with Sebas Gilbert MD Dermatology - 1 Week @ [facility] with dr Urbina PCP Follow-up - [address] randi hammer New Medications: Calcium Carbonate-Vitamin D (Oscal 500/200 D-3) 500-200 Mg-Unit Tab 1 TAB PO BID Calcium Supplement Days 30 Ref 0 TAB Pantoprazole (Pantoprazole) 40 Mg Tab 40 MG PO DAILY prophylaxis #60 TAB Prednisone (Prednisone) 10 Mg Tab 10 MG PO DIRECTED prednisone 30mg po bid x 1 week, 25mg po bid x 2 weeks, 20mg po bid x 2 weeks,15 mg po bid x 2 weeks, 10mg po bid x 2 weeks, 10mg po daily x 2 weeks. Rash Days 77 TAB Valacyclovir (Valtrex) 500 Mg Tab 1000 MG PO Q8HR Infection Days 5 TAB Continued Medications: Hydrocodone-Acetaminophen (Judsonia) 5-325 mg Tab 1-2 TAB PO Q4HR PRN PAIN Ref 0 TAB Metoprolol Tartrate (Metoprolol Tartrate) 25 Mg Tab 25 MG PO BID svt #60 Ref 6 TAB Triamcinolone Topical (Triamcinolone Topical) 0.1 % Oint 1 APPLIC TOPICAL Q6HR Rash Days 7 TUBE Discontinued Medications: Prednisone (Prednisone) 10 Mg Tab 10 MG PO DIRECTED 20 mg po bid x 2 days, 10 mg po bid x 2 days, 10mg po daily x 3 days Rash Days 7 TAB aBy Jaramillo MD Apr 03, 2016 21:42
[2016-04-06 13:03] LABS: TOTAL PROTEIN SPE 5.8 GM/DL (6.0-7.6)
[2016-04-07 14:15] LABS: ALBUMIN SPE 3.17 GM/DL (3.50-5.00); ALPHA 1 GLOBULIN 0.17 GM/DL (0.11-0.29); ALPHA 2 GLOBULIN 0.96 GM/DL (0.22-1.00); BETA GLOBULINS (SPE) 0.73 GM/DL (0.53-1.03)
[2016-04-09 23:54] LABS: LYME DISEASE 18KD IGG BAND NON-REACTIVE (()); LYME DISEASE 23 IGG BAND NON-REACTIVE (()); LYME DISEASE 23KD IGM BAND NON-REACTIVE (()); LYME DISEASE 28KD IGG BAND NON-REACTIVE (()); LYME DISEASE 30KD IGG BAND NON-REACTIVE (()); LYME DISEASE 39 KD IGG BAND NON-REACTIVE (()); LYME DISEASE 39KD IGM BAND NON-REACTIVE (()); LYME DISEASE 41KD IGG BAND REACTIVE (()); LYME DISEASE 41KD IGM BAND REACTIVE (()); LYME DISEASE 45KD IGG BAND NON-REACTIVE (()); LYME DISEASE 58KD IGG BAND NON-REACTIVE (()); LYME DISEASE 66KD IGG BAND NON-REACTIVE (()); LYME DISEASE 93KD IGG BAND NON-REACTIVE (()); LYME DISEASE IGM WB NEGATIVE (())
== END 2016-04-03 12:31 | disposition home or self-care (01) | DRG 546 ==
LOC: NEPE 11:53 → NEDA 12:29 → N07B 16:01
PROVIDERS: ADMIT Hospitalist; ATTEND Hospitalist
PROC: 0HBCXZX Excision of Left Upper Arm Skin, External Approach, Diagnostic (ICD-10-PCS; principal; 2016-04-02)
DX: I77.6 Arteritis, unspecified (principal); I47.1 Supraventricular tachycardia; B01.9 Varicella without complication; L50.9 Urticaria, unspecified; E83.39 Other disorders of phosphorus metabolism; E55.9 Vitamin D deficiency, unspecified; T38.0X5A Adverse effect of glucocorticoids and synthetic analogues, initial encounter; R73.9 Hyperglycemia, unspecified
CPT/HCPCS: 71250; 74176; 80048; 80074; 80076; 81001; 82306; 82550; 82595; 82652; 82784; 82948; 83735; 83883; 84100; 84165; 84550; 84702; 85025; 85652; 86021; 86038; 86160; 86162; 86200; 86225; 86235; 86332; 86335; 86430; 86617; 86787; 88305; 93971; 99284; J1650; J1815; J2930; J7512; Q9963

== ENCOUNTER 2016-04-08 14:04 | Inpatient (IN) | payer OTHER ==
[~2016-04-08] VITALS: Ht 167.6 cm; Wt 97.8 kg
[~2016-04-08 14:04] MED LIST changes: +NORC5TAB PO; +OSCA200T PO; -OXYC1TAB63 PO; +PANT40TA3 PO
[2016-04-08 14:05] VITALS: BP 123/75; PULSE 104; RESP 20; TEMP 98.1; O2SAT 94
--- NOTE | 2016-04-08 15:37 | PD ---
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 She was recently hospitalized and discharged on higher dose steroids for control of her symptoms however she developed some significant lower extremity pain. She states that her steroids were reduced because of this and the rash has returned and she is in extreme pain. She has not had any fevers or chills but states that she has had episodes of sweating. Denies a chest tightness. No difficulty breathing. No abdominal pain, nausea, vomiting. No other symptoms to report. She was sent here by her primary care provider Dr. Umaña. [facility] Past Medical History Heart Rhythm Problems: Yes Genitourinary: Yes (kidney problems as child.) ?: Not LMP: 03/19/16 : 4 Para: 2 Miscarriage: 1 Social History Alcohol Use: Yes ([facility]) Tobacco Use: No Substance Use: No Allergies-Medications (Allergen,Severity, Reaction): Coded Allergies: No Known Allergies (Unverified , 03/29/16) Reported Meds & Prescriptions Reported Meds & Active Scripts Active Prednisone 10 Mg Tab 10 Mg PO DIRECTED 77 Days prednisone 30mg po bid x 1 week, 25mg po bid x 2 weeks, 20mg po bid x 2 weeks,15 mg po bid x 2 weeks, 10mg po bid x 2 weeks, 10mg po daily x 2 weeks. Oscal 500/200 D-3 (Calcium Carbonate-Vitamin D) 500-200 Mg-Unit Tab 1 Tab PO BID 30 Days Pantoprazole (Pantoprazole Sodium) 40 Mg Tab 40 Mg PO DAILY Valtrex (Valacyclovir HCl) 500 Mg Tab 1,000 Mg PO Q8HR 5 Days Metoprolol Tartrate 25 Mg Tab 25 Mg PO BID Triamcinolone Topical (Triamcinolone Acetonide) 0.1 % Oint 1 Applic TOPICAL Q6HR 7 Days Reported Tebbetts (Hydrocodone-Acetaminophen) 5-325 mg Tab 1-2 Tab PO Q4HR PRN Review of Systems Except as stated in HPI: all other systems reviewed are Neg Physical Exam Narrative GENERAL: Well-nourished female patient, lying on the stretcher, no acute distress SKIN: Warm and dry. Erythematous, slightly raised rash over the anterior chest , shoulders, and extremities. No vesicle or pustule formation. No draining. HEAD: Atraumatic. Normocephalic. EYES: Pupils equal and round. No scleral icterus. No injection or drainage. ENT: No nasal bleeding or discharge. Mucous membranes pink and moist. NECK: Trachea midline. No JVD. CARDIOVASCULAR: Elevated rate and rhythm. No murmur appreciated. RESPIRATORY: No accessory muscle use. Clear to auscultation. Breath sounds equal bilaterally. GASTROINTESTINAL: Abdomen soft, non-tender, nondistended. Hepatic and splenic margins not palpable. MUSCULOSKELETAL: No obvious deformities. No clubbing. No cyanosis. No edema. NEUROLOGICAL: Awake and alert. No obvious cranial nerve deficits. Motor grossly within normal limits. Normal speech. PSYCHIATRIC: Appropriate mood and affect; insight and judgment normal. Data Data Last Documented VS Vital Signs Date Time Temp Pulse Resp B/P Pulse Ox O2 Delivery O2 Flow Rate FiO2 04/08/16 14:05 98.1 104 20 123/75 94 Room Air Orders Iv Access Insert/Monitor (04/08/16 16:12) Complete Blood Count With Diff (04/08/16 16:12) Comprehensive Metabolic Panel (04/08/16 16:12) Magnesium (Mg) (04/08/16 16:12) Phosphorus (Po4) (04/08/16 16:12) Westergren Sedimentation Rate (04/08/16 16:12) MDM Medical Decision Making Medical Screen Exam Complete: Yes Emergency Medical Condition: Yes Medical Record Reviewed: Yes Differential Diagnosis Vasculitis exacerbation versus acute dermatitis versus contact dermatitis versus folliculitis versus urticaria versus viral exanthem Narrative Course 40 year-old female presents to the emergency department for evaluation. I discussed the patient with Dr. Umaña, her primary care provider. He requests admission to his service, CBC, CMP, sedimentation rate, mag, and Raquel. I have requested registration to register the patient's I can get her admitted. Orders are placed otherwise. She'll be admitted to Dr. Umaña Diagnosis Primary Impression: Urticarial vasculitis Admitting Information Admitting Physician Requests: Admit Condition: Stable Debo Ellis Apr 08, 2016 15:37
[2016-04-08] MEDS ORDERED: PRED20 PO (17:14)
[2016-04-08 17:15] VITALS: BP 120/64; PULSE 99; RESP 16; TEMP 98.5; O2SAT 93
[2016-04-08 17:21] LABS: AUTOMATED NEUTROPHIL # 12.3 TH/MM3 (1.8-7.7); BASOPHIL % 0.1 % (0.0-2.0); EOSINOPHIL % 0.2 % (0.0-4.0); HEMATOCRIT 41.9 % (35.0-46.0); LYMPH % 10.7 % (9.0-44.0); LYMPHOCYTE # 1.5 TH/MM3 (1.0-4.8); MEAN CELL VOLUME 88.6 FL (80.0-100.0); MEAN CORPUSCULAR HEMOGLOBIN 30.3 PG (27.0-34.0); MEAN CORPUSCULAR HGB CONC 34.2 % (32.0-36.0); MONO % 3.2 % (0.0-8.0); NEUT % 85.8 % (16.0-70.0); PLATELET COUNT 319 TH/MM3 (150-450); RED BLOOD COUNT 4.73 MIL/MM3 (4.00-5.30); RED CELL DISTRIBUTION WIDTH 14.2 % (11.6-17.2); WHITE BLOOD COUNT 14.3 TH/MM3 (4.0-11.0)
[2016-04-08 17:26] LABS: HEMO FLAGS AUTO DIFF
[2016-04-08 17:42] LABS: ALKALINE PHOSPHATASE 87 U/L (45-117); ALT (GPT) 42 U/L (10-53); ANION GAP 9 MEQ/L (5-15); AST (GOT) 17 U/L (15-37); BICARBONATE 24.1 MEQ/L (21.0-32.0); BLOOD UREA NITROGEN 19 MG/DL (7-18); CHLORIDE 100 MEQ/L (98-107); GLOMERULAR FILTRATION RATE 67 ML/MIN (>89); MAGNESIUM 2.3 MG/DL (1.5-2.5); POTASSIUM 4.5 MEQ/L (3.5-5.1); SODIUM (NA) 133 MEQ/L (136-145); TOTAL BILIRUBIN ADULT 0.3 MG/DL (0.2-1.0)
[2016-04-08 17:58] LABS: BLOOD, URINE SMALL (NEG); GLUCOSE,URINE 150 mg/dL (NEG); KETONE, URINE NEG (NEG); MUCUS URINE FEW /lpf (OCC); NITRITE,URINE NEG (NEG); PH, URINE 5.5 (5.0-8.5); RENAL EPITHELIAL CELLS <1 /hpf; SQUAMOUS EPITHELIAL CELL URINE 3 /hpf (0-5); URINE COLOR YELLOW (YELLW/STRAW)
[2016-04-08 17:59] LABS: COMMENT (UR) CULT NOT INDICATED; CULTURE IF INDICATED CULT NOT INDICATED
--- NOTE | 2016-04-08 18:09 | HHI.HP ---
HPI Service [facility] Hospitalists Primary Care Physician Tani Massey MD Admission Diagnosis vasulitis exacerbation Chief Complaint: pain/rash Travel History International Travel<30 Days: No Contact w/Intl Traveler <30 Da: No Traveled to Known Affected Are: No History of Present Illness Pt developed rapidly progressive multiform rash with vesicles/bullae/plaque lesions/ nodules and erythema around 03/05-03/06. The rash involved the arms but progressed to ant chest/upper back and later thigh/legs. She failed outpt therapy with bendadryl/prednisone/clinda. Extensive hx taken and no clear culprit but she described a spider bite on finger in January, exposure to mother in law with shingles in either December or January, and a trip to [place] in January. She was admitted to hospital and initial impressions were that some of the lesions could be herpetiform in nature and possible erythema multiforme secondary to a virus.She was placed on iv solumedrol and valtrex. antibiotics were stopped as this was not obviously bacterial. She was on clinda then doxy for short period of time. Her lesions gradually improved and by the time of discharge she just had some blotchy erythematous areas over shoulder and no vesicle or bullae over arms/legs. During that admission her limited AI w/up was unremarkable. We had discharged the patient home before the bx was available and the best answer that we could give at that time was a varicella rash which certainly could have explained much of the rash findings. She was sent home on a week of prednisone taper, triamcinolone 0.1 percent for a week, and she completed the valtrex. 2 days after discharge I received a call from the dermatopathologist in [place]. 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 I called the patient 2 days after discharge and she seemed to be doing fine. but as her prednisone tapered her painful skin lesions rapidly returned on neck/shoulder/behind ears/ arm/abdomen/legs and very painful joints. Raising the prednisone dose back up didn't stop the progression. I called and had pt seen by Frederick Patel. They were concerned about Sweets syndrome and took another bx on right arm. Later that came back negative. She was subsequently readmitted for severe flare of the rash and severe pain of her joints. Again after several days of solumedrol the rash was improved enough to d/c home. During that admission an extensive autoimmune, malignancy w/ up was negative aside from positive cryoglobulin that came back after d/c. also 2 new bx's of left arm taken and still pending. Pt took a trip to [place] the night of discharge and was in car for long period of time and then on feet alot. When she returned her legs were severely swollen and in alot of pain. She was crawling on floor to get around per and in tears with pain. 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 remote hx Lyme dz vit d def. hypophosphatemia. chronic hypoalbumenemia Reported Medications Oscal 500/200 D-3 (Calcium Carbonate-Vitamin D) 500-200 Mg-Unit Tab 1 Tab PO BID 30 Days Pantoprazole (Pantoprazole Sodium) 40 Mg Tab 40 Mg PO DAILY Valtrex (Valacyclovir HCl) 500 Mg Tab 1,000 Mg PO Q8HR 5 Days Metoprolol Tartrate 25 Mg Tab 25 Mg PO BID Triamcinolone Topical (Triamcinolone Acetonide) 0.1 % Oint 1 Applic TOPICAL Q6HR prednisone taper. Butler (Hydrocodone-Acetaminophen) 5-325 mg Tab 1-2 Tab PO Q4HR PRN Allergies: Coded Allergies: No Known Allergies (Unverified , 03/29/16) Family History aunt with polycythemia vera Social History rare etoh no tob. Physical Exam Vital Signs papular rash with underlying erythema on neck/chest. alot of macular hyperpigmented lesions from prior rash over UE"s. some smaller papular red lesion on fingers. no draining lesions heart reg lung cta abd left lower quad tenderness but no redness or rebound ext. lower ext are swollen but no pitting. no palpable cords or active rash over lower ext's. Vital Signs Date Time Temp Pulse Resp B/P Pulse Ox O2 Delivery O2 Flow Rate FiO2 04/08/16 17:15 98.5 99 16 120/64 93 Room Air 04/08/16 16:47 105 18 04/08/16 14:05 98.1 104 20 123/75 94 Room Air Laboratory Laboratory Tests Test 04/08/16 04/08/16 16:45 17:40 White Blood Count 14.3 Red Blood Count 4.73 Hemoglobin 14.3 Hematocrit 41.9 Mean Corpuscular Volume 88.6 Mean Corpuscular Hemoglobin 30.3 Mean Corpuscular Hemoglobin 34.2 Concent Red Cell Distribution Width 14.2 Platelet Count 319 Mean Platelet Volume 7.6 Neutrophils (%) (Auto) 85.8 Lymphocytes (%) (Auto) 10.7 Monocytes (%) (Auto) 3.2 Eosinophils (%) (Auto) 0.2 Basophils (%) (Auto) 0.1 Neutrophils # (Auto) 12.3 Lymphocytes # (Auto) 1.5 Monocytes # (Auto) 0.5 Eosinophils # (Auto) 0.0 Basophils # (Auto) 0.0 CBC Comment AUTO DIFF Erythrocyte Sedimentation Rate 10 Sodium Level 133 Potassium Level 4.5 Chloride Level 100 Carbon Dioxide Level 24.1 Anion Gap 9 Blood Urea Nitrogen 19 Creatinine 0.93 Estimat Glomerular Filtration 67 Rate Random Glucose 133 Calcium Level 8.4 Phosphorus Level 1.8 Magnesium Level 2.3 Total Bilirubin 0.3 Aspartate Amino Transf 17 (AST/SGOT) Alanine Aminotransferase 42 (ALT/SGPT) Alkaline Phosphatase 87 Total Protein 6.8 Albumin 3.1 Urine Color YELLOW Urine Turbidity HAZY Urine pH 5.5 Urine Specific S[place] 1.026 Urine Protein TRACE Urine Glucose (UA) 150 Urine Ketones NEG Urine Occult Blood SMALL Urine Nitrite NEG Urine Bilirubin NEG Urine Urobilinogen LESS THAN 2.0 Urine Leukocyte Esterase NEG Urine RBC 2 Urine WBC 3 Urine Squamous Epithelial 3 Cells Urine Renal Epithelial Cells <1 Urine Mucus FEW Microscopic Urinalysis Comment CULT NOT INDICATED Result Diagram: 04/08/16 [id number] Assessment and Plan Problem List: (1) Urticarial vasculitis Status: Acute Plan: Rash of unclear etiology with arthralgias. skin bx 03/13: urticarial vasculitis IgG and IgM varicella positive x 2 s/p valtex. cryoglobulin positive..?vasculitis related. Lower extemity swelling and pain felt to be related to steroids Complains of Left lower quad pain. will reevaluate nonspecific gas collection/ inflammation seen in abdomen wall fat pad on recent CT. It was felt to be due to instrumentation/needle injection from nursing. will also exclude constipation from narcotic pain meds. Rash/Arthralgias: as above initial bx suggested UV. second bx negative but probably skewed by meds. 3rd and 4rth bx's pending. At this point will ask ID to evaluate to exclude a superimposed infectious rash as this pt has been on high dose steroids. Will f/u pending test from prior admission. If the pending biopsies don't clarify her diagnosis and ID not convinced it's infectious then I will have to call to get her an appt at [facility] consider trial of colchicine for UV. Pain meds ordered. (2) Varicella Status: Chronic Plan: s/p valtrex rx. see above (3) Steroid-induced hyperglycemia Status: Acute Plan: monitor. (4) Vitamin D deficiency Status: Chronic Plan: oscal. (5) Hypophosphatemia Status: Acute Plan: replace (6) SVT (supraventricular tachycardia) Status: Chronic Plan: follows with dr Ofelia ortiz tele. Physician Certification 2 Midnight Certification Type: Admission for Inpatient Services Order for Inpatient Services 3The services are ordered in accordance with Medicare regulations or non- Medicare payer requirements, as applicable. In the case of services not specified as inpatient-only, they are appropriately provided as inpatient services in accordance with the 2-midnight benchmark. Estimated LOS (days): 3 3 days is the estimated time the patient will need to remain in the hospital, assuming treatment plan goals are met and no additional complications. Post-Hospital Plan: Home Bay Jaramillo MD Apr 08, 2016 18:09
[2016-04-08] MEDS ORDERED: methylPREDNISolone SOD SUCC 125 MG/2 ML VIAL IV PUSH ONE (18:15)
[2016-04-08] MEDS ORDERED: POTASSIUM PHOSPHATE MONOBASIC 500 MG TAB PO ONE (18:15)
[2016-04-08] MEDS ORDERED: ACETAMINOPHEN/HYDROcodone 325 MG/5 MG TAB PO PRN (18:15)
[2016-04-08] MEDS ORDERED: DIATRIZOATE MEGLUM/DIATRIZOATE SOD 9 ML CUP PO ONE (18:30)
[2016-04-08 18:32] LABS: BANDS 5 % (0-6); METAMYELOCYTES 2 % (0-1); NEUTROPHIL # MANUAL DIFF 12.4 TH/MM3 (1.8-7.7); PLATELET ESTIMATE SMEAR NORMAL (NORMAL); PLATELET MORPHOLOGY NORMAL (NORMAL); POLYS (SEG NEUTROPHILS) 80 % (16-70); SCAN/DIFF FINAL DIFF MANUAL; WBC DIFF SAMPLE 100
[2016-04-08] MEDS: ACETAMINOPHEN/HYDROcodone 325 MG/5 MG TAB PO PRN ×2 (18:35→23:04)
--- NOTE | 2016-04-08 19:43 | RADRPT ---
EXAM DATE/TIME: 04/08/2016 19:17 CORRECTION Corrected on: April 08, 2016; [facility] COMPARISON: CT THORAX W/O CONTRAST, April 01, 2016, 14:57. INDICATIONS : Left abdominal pain for three weeks ORAL CONTRAST: Prescribed oral contrast ingested. RADIATION DOSE: 10.23 CTDIvol (mGy) MEDICAL HISTORY : Cardiovascular disease. Immunologic vasculitis. SURGICAL HISTORY : None. ENCOUNTER: Initial ACUITY: 3 weeks PAIN SCALE: 8/10 LOCATION: Left abdomen TECHNIQUE: Volumetric scanning of the abdomen and pelvis was performed. Using automated exposure control and ad justment of the mA and/or kV according to patient size, radiation dose was kept as low as reasonably achievable to obtain optimal diagnostic quality images. FINDINGS: LOWER LUNGS: The visualized lower lungs are clear. LIVER: Homogeneous density without lesion. There is no dilation of the biliary tree. No calcified gallston es. SPLEEN: Normal size without lesion. PANCREAS: Within normal limits. KIDNEYS: Normal in size and shape. There is no mass, stone, or hydronephrosis. ADRENAL GLANDS: Within normal limits. VASCULAR: There is no aortic aneurysm. BOWEL/MESENTERY: The stomach, small bowel, and colon demonstrate no acute abnormality. There is no free intraperitone al air or fluid. ABDOMINAL WALL: Intact. Subcutaneous air seen previously in the left lower quadrant anterior, wall has resolved. This was presumably from subcutaneous heparin injection. RETROPERITONEUM: There is no lymphadenopathy. BLADDER: No wall thickening or mass. REPRODUCTIVE: Within normal limits. INGUINAL: There is no lymphadenopathy or hernia. MUSCULOSKELETAL: Within normal limits for patient age. CONCLUSION: Normal noncontrast CT of the abdomen and pelvis. Rob Mckeon MD on April 08, 2016 at 19:37 Board Certified Radiologist. This report was verified electronically. Rob Mckeon MD on April 08, 2016 at 20:42 Board Certified Radiologist. This report was verified electronically.
[2016-04-08 20:30] VITALS: PULSE 105
--- NOTE | 2016-04-08 20:33 | RADRPT ---
EXAM DATE/TIME: 04/08/2016 19:40 [facility] COMPARISON: No previous studies available for comparison. INDICATIONS : Bilateral leg swelling. MEDICAL HISTORY : Contacts. Irregular heartbeat. SURGICAL HISTORY : Cardiac cath. ENCOUNTER: [facility] ACUITY: 1 day PAIN SCORE: 7/10 LOCATION: Bilateral legs. TECHNIQUE: Venous ultrasound of the left and right leg was performed from the inguinal ligament to the proximal calf. Real-time, color Doppler and spectral tracing, compression and augmentation techniques were us ed. FINDINGS: RIGHT LEG: There is normal compressibility of the deep venous system from the inguinal region to the proximal ca lf. No echogenic clot is seen in the lumen of the common femoral, femoral, popliteal, and posterior tibial veins. There is a normal response of the venous system to proximal and distal augmentation an d respiration. LEFT LEG: There is normal compressibility of the deep venous system from the inguinal region to the proximal ca lf. No echogenic clot is seen in the lumen of the common femoral, femoral, popliteal, and posterior tibial veins. There is a normal response of the venous system to proximal and distal augmentation an d respiration. CONCLUSION: No DVT of either lower extremity. Rob Mckeon MD on April 08, 2016 at 20:31 Board Certified Radiologist. This report was verified electronically.
[2016-04-08] MEDS ORDERED: CALCIUM/VITAMIN D 250 MG/125 U TAB PO SCH (21:00)
[2016-04-08] MEDS: MORPHINE SULFATE 4 MG/ML INJ IV PUSH PRN (21:03)
[2016-04-08] MEDS: METOPROLOL TARTRATE 25 MG TAB PO SCH (21:04)
[2016-04-08] MEDS: CALCIUM/VITAMIN D 250 MG/125 U TAB PO SCH (21:47)
[2016-04-08 22:36] VITALS: BP 130/88; PULSE 94; RESP 16; TEMP 97.4; O2SAT 96
[2016-04-08] MEDS: methylPREDNISolone SOD SUCC 125 MG/2 ML VIAL IV PUSH SCH (23:06)
[2016-04-09] VITALS (8 sets, daily range): BP systolic 100–138; BP diastolic 63–84; PULSE 85–106; RESP 16–20; TEMP 97.1–98.2; O2SAT 94–97
[2016-04-09] MEDS: MORPHINE SULFATE 4 MG/ML INJ IV PUSH PRN ×3 (01:15→06:32)
[2016-04-09] MEDS: ACETAMINOPHEN/HYDROcodone 325 MG/5 MG TAB PO PRN ×3 (04:02→19:01)
[2016-04-09] MEDS: PANTOPRAZOLE SOD 40 MG DELAYED RELEASE TAB PO SCH (08:10)
[2016-04-09] MEDS: CALCIUM/VITAMIN D 250 MG/125 U TAB PO SCH ×2 (08:10→20:25)
[2016-04-09] MEDS: methylPREDNISolone SOD SUCC 125 MG/2 ML VIAL IV PUSH SCH ×2 (08:10→15:28)
[2016-04-09] MEDS: METOPROLOL TARTRATE 25 MG TAB PO SCH ×2 (08:10→20:25)
[2016-04-09] MEDS ORDERED: COLCHICINE 0.6 MG TAB PO ONE (09:45)
[2016-04-09] MEDS ORDERED: DOCUSATE SODIUM 100 MG CAP PO ONE (09:45)
--- NOTE | 2016-04-09 09:48 | HHI.PR ---
Subjective Remarks pt rash improving overnight she c/o aches/pains in joints and difficulty ambulating. Objective Vitals neck/shoulder erythemtous/papular rash improving overnight. alot of old macular hyperpigmented lesion over neck/chest/arms from prior rash. no synovitis noted in joints her joints are not hot or red. lower ext swelling seems better with compression socks Vital Signs Date Time Temp Pulse Resp B/P Pulse Ox O2 Delivery O2 Flow Rate FiO2 04/09/16 04:00 98.2 93 18 100/68 96 04/09/16 00:00 85 18 134/84 97 04/09/16 00:00 85 18 134/84 97 04/08/16 22:36 97.4 94 16 130/88 96 04/08/16 20:30 105 04/08/16 17:15 98.5 99 16 120/64 93 Room Air 04/08/16 16:47 105 18 04/08/16 14:05 98.1 104 20 123/75 94 Room Air 04/08/16 04/08/16 04/09/16 15:00 23:00 07:00 Intake Total 220 ml Balance 220 ml Intake Oral 220 ml # Voids 2 # Bowel Movements 0 Result Diagram: 04/08/16 1645 04/08/16 1645 A/P Problem List: (1) Urticarial vasculitis Status: Acute Plan: Rash of unclear etiology with arthralgias. skin bx 03/13: urticarial vasculitis IgG and IgM varicella positive x 2 s/p valtex. cryoglobulin positive --Lower extemity swelling and pain felt to be related to steroids. somewhat better with compression/elevation --Complains of Left lower quad pain. repeat ct shows resolution of left abdomen wall gas/inflammatory area seen on prior admission. It was felt to be due to instrumentation/needle injection from nursing. --Rash/Arthralgias: as above initial bx suggested UV. second bx negative but probably skewed by meds. 3rd and 4rth bx's pending. At this point will ask ID to evaluate to exclude a superimposed infectious rash as this pt has been on high dose steroids. I have called transportation broker Dr Goodwin for opinion on diagnosis and treatment. he nor any other transportation broker will come to [place]...but he was very kind to offer an immediate appt upon d/c from hospital this time. will add colchicine for now to see if any response to rash/pains until repeat bx results back. need to get her down from the high dose steroids and narcotic pain meds. Will f/u pending test from prior admission. ....the patients rash over neck/chest/back are once again improved today from last night just with iv solumedrol. This pt still may need a referral to tertiary care center such as [place] or [facility]. (2) Varicella Status: Chronic Plan: s/p valtrex rx. see above (3) Steroid-induced hyperglycemia Status: Acute Plan: monitor. (4) Vitamin D deficiency Status: Chronic Plan: oscal. (5) Hypophosphatemia Status: Acute Plan: replace (6) SVT (supraventricular tachycardia) Status: Chronic Plan: follows with dr Ofelia jeronimo bb tele. Bay Jaramillo MD Apr 09, 2016 09:48
[2016-04-09] MEDS ORDERED: LACTULOSE SYRUP 20 GM/30 ML CUP PO ONE ×2 (15:00→19:00)
[2016-04-09] MEDS: SIMETHICONE 125 MG CHEWABLE TAB PO SCH ×2 (19:00→20:25)
[2016-04-09] MEDS: DOCUSATE SODIUM 100 MG CAP PO SCH (20:25)
[2016-04-10 00:01] VITALS: BP 117/69; PULSE 93; RESP 18; TEMP 97.1; O2SAT 97
[2016-04-10 04:00] VITALS: BP 112/66; PULSE 78; RESP 16; TEMP 98.2; O2SAT 94
[2016-04-10] MEDS: SIMETHICONE 125 MG CHEWABLE TAB PO SCH ×3 (04:56→20:22)
[2016-04-10 08:00] VITALS: BP 135/84; PULSE 72; RESP 20; TEMP 97.6; O2SAT 99
[2016-04-10] MEDS: methylPREDNISolone SOD SUCC 125 MG/2 ML VIAL IV PUSH SCH ×4 (10:15→23:33)
[2016-04-10] MEDS: CALCIUM/VITAMIN D 250 MG/125 U TAB PO SCH ×2 (10:15→20:20)
[2016-04-10] MEDS: PANTOPRAZOLE SOD 40 MG DELAYED RELEASE TAB PO SCH (10:15)
[2016-04-10] MEDS: METOPROLOL TARTRATE 25 MG TAB PO SCH ×2 (10:15→20:20)
[2016-04-10] MEDS: COLCHICINE 0.6 MG TAB PO SCH (10:15)
[2016-04-10] MEDS: DOCUSATE SODIUM 100 MG CAP PO SCH ×2 (10:15→20:25)
[2016-04-10 12:00] VITALS: BP 95/68; PULSE 88; RESP 20; TEMP 97.6; O2SAT 96
--- NOTE | 2016-04-10 15:22 | HHI.PR ---
Subjective Remarks bowels moving. rash seems better arthralgia complaints Objective Vitals nad/lying in bed macular rash/erythematous but less red over back/chest. old lesions over arms/legs/hands. lower ext swelling better. no pitting. Vital Signs Date Time Temp Pulse Resp B/P Pulse Ox O2 Delivery O2 Flow Rate FiO2 04/10/16 12:00 97.6 88 20 95/68 96 04/10/16 08:00 97.6 72 20 135/84 99 04/10/16 04:00 98.2 78 16 112/66 94 04/10/16 00:01 97.1 93 18 117/69 97 04/09/16 20:59 106 04/09/16 20:18 16 04/09/16 20:00 97.4 92 16 131/69 94 04/09/16 15:50 97.1 95 20 138/78 97 04/09/16 04/09/16 04/10/16 15:00 23:00 07:00 Intake Total 360 ml 500 ml 300 ml Balance 360 ml 500 ml 300 ml Intake Oral 360 ml 500 ml 300 ml # Voids 5 2 2 # Bowel Movements 0 0 0 Result Diagram: 04/08/16 1645 04/08/16 1645 A/P Problem List: (1) Urticarial vasculitis Status: Acute Plan: Rash of unclear etiology with arthralgias. skin bx 03/13: urticarial vasculitis IgG and IgM varicella positive x 2 s/p valtex. cryoglobulin positive --Lower extemity swelling and pain felt to be related to steroids. somewhat better with compression/elevation --Complains of Left lower quad pain. repeat ct shows resolution of left abdomen wall gas/inflammatory area seen on prior admission. It was felt to be due to instrumentation/needle injection from nursing. did have gas/stool which could be causing some pain. laxative ordered. --Rash/Arthralgias: as above initial bx suggested UV. second bx negative but probably skewed by meds. 3rd and 4rth bx's pending.Discussed with ID supervisor electronics testing. They are not interested in seeing pt as they feel not infectious. I have called gas operation manager Dr Goodwin for opinion on diagnosis and treatment. he nor any other gas operation manager will come to [place]...but he was very kind to offer an immediate appt upon d/c from hospital this time. added colchicine for now to see if any response to rash/pains until repeat bx results back. need to get her down from the high dose steroids and narcotic pain meds. Will f/u pending test from prior admission. Discussed with cp. Obtaining [facility] referral. Records sent. (2) Varicella Status: Chronic Plan: s/p valtrex rx. see above (3) Steroid-induced hyperglycemia Status: Acute Plan: monitor. (4) Vitamin D deficiency Status: Chronic Plan: oscal. (5) Hypophosphatemia Status: Acute Plan: replace (6) SVT (supraventricular tachycardia) Status: Chronic Plan: follows with dr Ofelia jeronimo bb tele. Bay Jaramillo MD Apr 10, 2016 15:22
[2016-04-10 16:00] VITALS: BP 135/86; PULSE 90; RESP 20; TEMP 98.1; O2SAT 98
[2016-04-10] MEDS: ACETAMINOPHEN/HYDROcodone 325 MG/5 MG TAB PO PRN ×2 (16:40→20:24)
[2016-04-10 20:00] VITALS: BP 120/74; PULSE 95; RESP 18; TEMP 98.2; O2SAT 96
[2016-04-11] VITALS (8 sets, daily range): BP systolic 100–130; BP diastolic 64–81; PULSE 73–107; RESP 16–18; TEMP 96.9–98.4; O2SAT 94–96
[2016-04-11] MEDS: SIMETHICONE 125 MG CHEWABLE TAB PO SCH ×3 (05:59→22:23)
[2016-04-11] MEDS: DOCUSATE SODIUM 100 MG CAP PO SCH (09:00)
--- NOTE | 2016-04-11 09:08 | HHI.PR ---
Subjective Remarks no events overnight. Objective Vitals heart reg lung cta abd s/nt ext edema better. rash over shoulder/neck/chest improving just some flat fading erythematous macules no papules or vesicles at this point. no nodular lesions. Vital Signs Date Time Temp Pulse Resp B/P Pulse Ox O2 Delivery O2 Flow Rate FiO2 04/11/16 04:00 98.4 88 17 112/69 96 04/11/16 00:00 98.0 94 17 115/67 95 04/10/16 21:24 18 04/10/16 20:00 98.2 95 18 120/74 96 04/10/16 16:00 98.1 90 20 135/86 98 04/10/16 12:00 97.6 88 20 95/68 96 04/10/16 04/10/16 04/11/16 15:00 23:00 07:00 Intake Total 1080 ml 480 ml 240 ml Balance 1080 ml 480 ml 240 ml Intake Oral 1080 ml 480 ml 240 ml IV Total 0 ml # Voids 3 4 2 # Bowel Movements 1 Result Diagram: 04/08/16 1645 04/08/16 1645 A/P Problem List: (1) Urticarial vasculitis Status: Acute Plan: Rash of unclear etiology with arthralgias. skin bx 03/13: urticarial vasculitis IgG and IgM varicella positive x 2 s/p valtex. cryoglobulin positive --Lower extemity swelling and pain felt to be related to steroids. somewhat better with compression/elevation. No dvt. --Complains of Left lower quad pain. repeat ct shows resolution of left abdomen wall gas/inflammatory area seen on prior admission. It was felt to be due to instrumentation/needle injection from nursing. did have gas/stool which could be causing some pain. laxative ordered. --Rash/Arthralgias: as above initial bx suggested UV. second bx negative but probably skewed by meds. 3rd and 4rth bx's pending.Discussed with ID web solutions architect. They are not interested in seeing pt as they feel not infectious. I have called billing auditor Dr Goodwin for opinion on diagnosis and treatment. he nor any other billing auditor will come to [place]...but he was very kind to offer an immediate appt upon d/c from hospital this time. added colchicine for now to see if any response to rash/pains until repeat bx results back. need to get her down from the high dose steroids and narcotic pain meds. She now has an appt at [facility] Wednesday morning for another opinion. I will give records and disks to pt to carry with her. Will f/u pending test from prior admission. (2) Varicella Status: Chronic Plan: s/p valtrex rx. see above (3) Steroid-induced hyperglycemia Status: Acute Plan: monitor. (4) Vitamin D deficiency Status: Chronic Plan: oscal. (5) Hypophosphatemia Status: Acute Plan: replace (6) SVT (supraventricular tachycardia) Status: Chronic Plan: follows with dr Ofelia ortiz tele. Bay Jaramillo MD Apr 11, 2016 09:08
[2016-04-11] MEDS: methylPREDNISolone SOD SUCC 125 MG/2 ML VIAL IV PUSH SCH ×3 (09:44→22:24)
[2016-04-11] MEDS: METOPROLOL TARTRATE 25 MG TAB PO SCH ×2 (09:44→22:24)
[2016-04-11] MEDS: CALCIUM/VITAMIN D 250 MG/125 U TAB PO SCH ×2 (09:44→22:24)
[2016-04-11] MEDS: COLCHICINE 0.6 MG TAB PO SCH (09:44)
[2016-04-11] MEDS: PANTOPRAZOLE SOD 40 MG DELAYED RELEASE TAB PO SCH (09:44)
[2016-04-11] MEDS: ACETAMINOPHEN/HYDROcodone 325 MG/5 MG TAB PO PRN ×3 (09:50→22:23)
[2016-04-12 00:32] VITALS: BP 92/50; PULSE 67; RESP 18; TEMP 97.1; O2SAT 95
[2016-04-12 04:00] VITALS: BP 106/64; PULSE 18; RESP 18; TEMP 98.2; O2SAT 95
[2016-04-12] MEDS: SIMETHICONE 125 MG CHEWABLE TAB PO SCH (06:00)
--- NOTE | 2016-04-12 07:52 | HHI.DS ---
Discharge Summary Admission Date Apr 08, 2016 at 16:46 Discharge Date: Apr 12, 2016 Admitting Diagnosis vasulitis exacerbation (1) Urticarial vasculitis Diagnosis: Principal (2) Varicella Diagnosis: Principal (3) Steroid-induced hyperglycemia Diagnosis: Principal (4) Hypophosphatemia Diagnosis: Secondary (5) SVT (supraventricular tachycardia) Diagnosis: Secondary Brief History Pt developed rapidly progressive multiform rash with vesicles/bullae/plaque lesions/ nodules and erythema around 03/05-03/06. The rash involved the arms but progressed to ant chest/upper back and later thigh/legs. She failed outpt therapy with bendadryl/prednisone/clinda. Extensive hx taken and no clear culprit but she described a spider bite on finger in January, exposure to mother in law with shingles in either December or January, and a trip to [place] in January. She was admitted to hospital and initial impressions were that some of the lesions could be herpetiform in nature and possible erythema multiforme secondary to a virus.She was placed on iv solumedrol and valtrex. antibiotics were stopped as this was not obviously bacterial. She was on clinda then doxy for short period of time. Her lesions gradually improved and by the time of discharge she just had some blotchy erythematous areas over shoulder and no vesicle or bullae over arms/legs. During that admission her limited AI w/up was unremarkable. We had discharged the patient home before the bx was available and the best answer that we could give at that time was a varicella rash which certainly could have explained much of the rash findings. She was sent home on a week of prednisone taper, triamcinolone 0.1 percent for a week, and she completed the valtrex. 2 days after discharge I received a call from the dermatopathologist in [place]. 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 I called the patient 2 days after discharge and she seemed to be doing fine. but as her prednisone tapered her painful skin lesions rapidly returned on neck/shoulder/behind ears/ arm/abdomen/legs and very painful joints. Raising the prednisone dose back up didn't stop the progression. I called and had pt seen by [facility]. They were concerned about Sweets syndrome and took another bx on right arm. Later that came back negative. She was subsequently readmitted for severe flare of the rash and severe pain of her joints. Again after several days of solumedrol the rash was improved enough to d/c home. During that admission an extensive autoimmune, malignancy w/ up was negative aside from positive cryoglobulin that came back after d/c. also 2 new bx's of left arm taken and still pending. Pt took a trip to [facility] the night of discharge and was in car for long period of time and then on feet alot. When she returned her legs were severely swollen and in alot of pain. She was crawling on floor to get around per and in tears with pain. overnight she developed papular erythematous rash again over neck/chest/shoulders, CBC/BMP: 04/08/16 1645 04/08/16 1645 Hospital Course Patient readmitted for 3rd time for rapidly progressive rash presumed to be urticarial vasculitis from recent bx with severe pain and complaints of arthralgia uncontrolled on po meds outpt. On the first admission Pt gave a hx of shingles exposure recently, and had positive IgG and IgM varicella from blood. We treated her for presumed varicella infection with valtrex and also sent her home on prednisone for the rash that improved on iv solumedrol. After first discharge her Bx 03/13 of left arm came back..I discussed with Dermpathologist in [facility] and she felt it most consistent with urticarial vasculitis. I had her evaluated by a local insurance billing specialist and another bx taken of the right arm to confirm the dx as that insurance billing specialist questioned Sweets syndrome. As she tapered on the prednisone the rash and joint pains returned and she was readmitted. On the second admission pt was started back on the iv solumedrol and valtrex with again remarkable improvement in the rash and some improvement of her joint pains. During that admission she had an extensive autoimmune w/up and some infectious and malignancy evaluation as well. During the second admission the second right arm biopsy returned and was negative for vasculitis/ sweets syndrome/AI process or dermatitis herpetiformis. It was recommended by dermatology to obtain new bx's and we took 2 punch bx's of the left arm and sent to dermpathology again. Those are still pending. The test results during that hospital stay included essential nml cbc aside from mild elevation of neutrophils probably from steroids. Fluctuating gfr but no renal failure. esr that was 10..then 47..then 17 at discharge. We ordered gustavo x 2, ds-dna, anti barron, anti plant facilities technician, RF, anti CCP,anca's, complement levels, spep, urine immunofixation, hepatitis a,b, c, EBV, CMV, ,anti ssa, anti ssb, immunoglobulin levels all normal. IgE pending. Her albumen levels are low which has been present for many years. She had no apparent proteinuria and no apparent protein losing enteropathy. again celiac in bx was negative. No apparent chronic liver disease. Her cryoglobulin level was found to be mildly elevated and unclear if this is related to her rash. We had low suspicion for Lyme disease but she was in [place]. Lyme titers are negative with1/10 IgG bands and 1/3 IgM bands. Pt had a CT C/A/P to exclude lymphadenopathy. There was nonspecific gas collection in left lower abdomen fat layer. Possibly from lovenox injections. Repeat CT abdomen and pelvis showed resolution of the gas collection. After her second discharge patient developed significant lower extremity edema from the steroids. She was readmitted with return of the rash primarily over her neck/shoulders on the 3rd admission with again severe arthralgia complaints. The rash responded quickly to iv solumedrol. We started colchicine during 3rd hospitalization with plans to get steroids tapered off. I don't feel comfortable continuing colchicine unless Rheumatology confirms a UV diagnosis. We decided to request an evaluation at [facility] to clarify her underlying diagnosis and assist with her treatment plan. Will keep prednisone at 40mg per day and have Rheumatology help decide on a taper plan. Her vitamin d store was low and active vit d level came back very high. Probably related to severe vid d deficiency but doubt sarcoidosis or hyperparathyroidism. Pt Condition on Discharge: Stable Discharge Disposition: Discharge Home Discharge Instructions DIET: Follow Instructions for: As Tolerated, No Restrictions Activities you can perform: Regular-No Restrictions Follow up Referrals: PCP Follow-up - [address] [facility] - Next Day @ [facility] with Dr James Changed Medications: Hydrocodone-Acetaminophen (Sparkman) 5-325 mg Tab 1 TAB PO Q6HR PRN PAIN #20 Ref 0 TAB (Changed from: 1-2 TAB; Q4HR) Prednisone (Prednisone) 20 Mg Tab 40 MG PO DAILY take 40mg daily until instructed to taper. Inflammation #0 Ref 0 TAB (Changed from: 20 MG; DIRECTED; 11; 40 MG twice a day x 3 days, then 20 MG daily x 3 days, then 10 MG daily x 3 days) Continued Medications: Metoprolol Tartrate (Metoprolol Tartrate) 25 Mg Tab 25 MG PO BID svt #60 Ref 6 TAB Pantoprazole (Pantoprazole) 40 Mg Tab 40 MG PO DAILY prophylaxis #60 TAB Discontinued Medications: Calcium Carbonate-Vitamin D (Oscal 500/200 D-3) 500-200 Mg-Unit Tab 1 TAB PO BID Calcium Supplement Days 30 Ref 0 TAB Triamcinolone Topical (Triamcinolone Topical) 0.1 % Oint 1 APPLIC TOPICAL Q6HR Rash Days 7 TUBE Valacyclovir (Valtrex) 500 Mg Tab 1000 MG PO Q8HR Infection Days 5 TAB Bay Jaramillo MD Apr 12, 2016 07:52
[2016-04-12 08:14] VITALS: PULSE 70
[2016-04-12] MEDS ORDERED: NORC5TAB PO (08:53)
[2016-04-12] MEDS ORDERED: PRED20 PO (08:53)
--- NOTE | 2016-04-12 08:54 | HHI.DCPOC ---
Discharge Care Plan Diagnosis: (1) Urticarial vasculitis Goals to Promote Your Health * To prevent worsening of your condition and complications * To maintain your health at the optimal level Directions to Meet Your Goals Take your medications as prescribed Follow your dietary instruction Follow activity as directed Keep your appointments as scheduled Take your immunizations and boosters as scheduled If your symptoms worsen call your PCP, if no PCP go to Urgent Care Center or Emergency Room Smoking is Dangerous to Your Health. Avoid second hand smoke Call the 24-hour hour crisis hotline for domestic abuse at Bay Jaramillo MD Apr 12, 2016 08:54
[2016-04-12] MEDS: methylPREDNISolone SOD SUCC 125 MG/2 ML VIAL IV PUSH SCH (09:11)
[2016-04-12] MEDS: METOPROLOL TARTRATE 25 MG TAB PO SCH (09:13)
[2016-04-12] MEDS: CALCIUM/VITAMIN D 250 MG/125 U TAB PO SCH (09:13)
[2016-04-12] MEDS: PANTOPRAZOLE SOD 40 MG DELAYED RELEASE TAB PO SCH (09:13)
[2016-04-12] MEDS: COLCHICINE 0.6 MG TAB PO SCH (09:13)
[2016-04-12] MEDS: ACETAMINOPHEN/HYDROcodone 325 MG/5 MG TAB PO PRN (09:19)
== END 2016-04-12 10:23 | disposition home or self-care (01) | DRG 546 ==
LOC: NETRI 14:04 → NEDA 16:46 → HOCB 20:38
PROVIDERS: ADMIT Hospitalist; ATTEND Hospitalist
DX: I77.6 Arteritis, unspecified (principal); B01.9 Varicella without complication; I47.1 Supraventricular tachycardia; E55.9 Vitamin D deficiency, unspecified; L50.9 Urticaria, unspecified; M79.606 Pain in leg, unspecified; T38.0X5A Adverse effect of glucocorticoids and synthetic analogues, initial encounter; Y92.009 Unspecified place in unspecified non-institutional (private) residence as the place of occurrence of the external cause; E83.39 Other disorders of phosphorus metabolism; R73.9 Hyperglycemia, unspecified
CPT/HCPCS: 74176; 76937; 80053; 81001; 82785; 83735; 84100; 85007; 85027; 85652; 93970; 99284; J2270; J2930; Q9963

== ENCOUNTER 2016-05-05 15:43 | Inpatient (IN) | payer OTHER ==
[~2016-05-05] VITALS: Ht 167.6 cm; Wt 105.1 kg
[~2016-05-05 15:43] MED LIST changes: -OSCA200T PO; -PRED10 PO; +PRED20 PO; -TRIAM.1%T TOPICAL; -VALT500T PO
--- NOTE | 2016-05-05 16:28 | HHI.HP ---
HPI Service [facility] Primary Care Physician Tani Massey MD Admission Diagnosis inability to walk Chief Complaint: inability to walk Travel History International Travel<30 Days: No Contact w/Intl Traveler <30 Da: No Traveled to Known Affected Are: No History of Present Illness Pt developed rapidly progressive multiform rash with vesicles/bullae/plaque lesions/ nodules and erythema around 03/05-03/06. The rash involved the arms but progressed to ant chest/upper back and later thigh/legs. She failed outpt therapy with bendadryl/prednisone/clinda. Extensive hx taken and no clear culprit but she described a spider bite on finger in January, exposure to mother in law with shingles in either December or January, and a trip to [place] in January. She was admitted to hospital and initial impressions were that some of the lesions could be herpetiform in nature and possible erythema multiforme secondary to a virus.She was placed on iv solumedrol and valtrex. antibiotics were stopped as this was not obviously bacterial. She was on clinda then doxy for short period of time. Her lesions gradually improved and by the time of discharge she just had some blotchy erythematous areas over shoulder and no vesicle or bullae over arms/legs. During that admission her limited AI w/up was unremarkable. We had discharged the patient home before the bx was available and the best answer that we could give at that time was a varicella rash which certainly could have explained much of the rash findings. She was sent home on a week of prednisone taper, triamcinolone 0.1 percent for a week, and she completed the valtrex. 2 days after discharge I received a call from the dermatopathologist in [place]. 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 I called the patient 2 days after discharge and she seemed to be doing fine. but as her prednisone tapered her painful skin lesions rapidly returned on neck/shoulder/behind ears/ arm/abdomen/legs and very painful joints. Raising the prednisone dose back up didn't stop the progression. I called and had pt seen by [place] [facility]. They were concerned about Sweets syndrome and took another bx on right arm. Later that came back negative. She was subsequently readmitted for severe flare of the rash and severe pain of her joints. Again after several days of solumedrol the rash was improved enough to d/c home. During that admission an extensive autoimmune, malignancy w/ up was negative aside from positive cryoglobulin that came back after d/c. also 2 new bx's of left arm taken and pending at d/c. Pt took a trip to [facility] the night of discharge and was in car for long period of time and then on feet alot. When she returned her legs were severely swollen and in alot of pain. She was crawling on floor to get around per and in tears with pain. overnight she developed papular erythematous rash again over neck/chest/shoulders, Pt improved with steroids and sent home on 40mg prednisone and she went to [place] the following day after d/c. That evaluation by [facility] consisted of blood work and emg/ncs. I am not aware of any specific diagnosis made on that evaluation. Pt says [place] told her to increase prednisone back to 60mg daily if the skin lesions returned and she did the week after d/c from the hospital and remains on that high dose. Pt says she tries to taper but quickly develops the painful rash. Now pt is quite swollen from the prednisone and has severe lower extremithy weakness. She went from bone marrow biopsy today and at that visit could barely move her feet/legs. She is using a wheelchair at this point. no loss ov bowel or bladder control. Review of Systems Other painful muscles/joints severe weakness inablility to ambulate Past Family Social History Past Medical History urticarial vasculitis per skin bx 03/13 varicella positive IgG and IgM x 2 SVT s/p EPS but no ablation right knee sprain. remote hx Lyme dz vit d def . with joe 1,25 vit d level hypophosphatemia. chronic hypoalbumenemia elevated cryoglobulin level. Reported Medications prednisone 50-60mg daily Shelton (Hydrocodone-Acetaminophen) 5-325 mg Tab 1 Tab PO Q6HR PRN Pantoprazole (Pantoprazole Sodium) 40 Mg Tab 40 Mg PO DAILY Metoprolol Tartrate 25 Mg Tab 25 Mg PO BID Allergies: Coded Allergies: No Known Allergies (Unverified , 03/29/16) Family History mother sister with PCV Social History rare etoh no tob Physical Exam Vital Signs oriented painful in appearance amado facies heart reg lung cta abd s/nt ext no pitting skin: no vesicles/bullae/erythema areas of dark patches over upper ext/legs from prior rash weakness of lower ext ext/flexion/dorsi and plantarflexions no clonus. 1plus reflexes. Assessment and Plan Problem List: (1) Inability to walk Status: Acute Plan: Compllicated patient developed rash with arthralgias around 03/05 No definitive diagnosis has been made after extensive evaluation She was admitted 3 times and now 4 since that time. She has been seen and evaluated by [facility] with no specific diagnosis. Since presentation her rash has been very responsive to steroids but quickly returns with severe pain of joints/muscles upon tapering. She has been dependent on high dose steroids for past 2 months and now displays alot of side effects including weight gain/swelling. Now she is having difficulty with ambulation and we have to exclude steroid myopathy. She has had extensive CTD/AI w/up, infectious, and malignancy w/up. She has had 4 skin biopsies and seen by Dermatology. The first biopsy was felt to be urticarial vasculitis by dermpathology in [place]. But 3 subsequent biopsies have been negative for autoimmune or immune deposition diseases...and specifically no sign of vasculitis/ctd/blistering diseases, porphurea cut. tarda , dermatitis herpetiformis, sweet syndrome, fungal elements, etc. Her w/up since first admission were findings of svt, elevated cryoglobulins, positive IgM varicella, chronic hypoalbumenemia, low 25,OH vit d and high 1,25 dihydroxyvit d, hypophosphatemia. Long discussion with Dr Preciado bone marrow studies done today and pending we need to get this pt weaned down and off steroids yoly. She is contemplating another immunosuppressive drug. MRI L spine tonight. start prednisone wean she is in severe pain. provide prn po and iv meds for now. repeat some lab w/up and order some additional testing as per orders. she just had ncs/emg at [place] and I will try to find those results. PT eval dvt prophylaxis (2) Vitamin D deficiency Status: Chronic Plan: see above (3) SVT (supraventricular tachycardia) Status: Chronic Plan: s/p eps cont bb (4) Hypophosphatemia Status: Acute Plan: replace (5) Hypokalemia Status: Acute Plan: replace (6) Hypoalbuminemia Status: Chronic Plan: unclear etiology. (7) Urticarial vasculitis Status: Acute Plan: see above Physician Certification 2 Midnight Certification Type: Admission for Inpatient Services Order for Inpatient Services 3The services are ordered in accordance with Medicare regulations or non- Medicare payer requirements, as applicable. In the case of services not specified as inpatient-only, they are appropriately provided as inpatient services in accordance with the 2-midnight benchmark. Estimated LOS (days): 3 3 days is the estimated time the patient will need to remain in the hospital, assuming treatment plan goals are met and no additional complications. Post-Hospital Plan: Home Bay Jaramillo MD May 05, 2016 16:28
[2016-05-05] MEDS ORDERED: ONDANSETRON HCL 4 MG/2 ML VIAL IV PUSH PRN (16:30)
[2016-05-05] MEDS ORDERED: MORPHINE SULFATE 4 MG/ML INJ IV PUSH PRN ×2 (16:30)
[2016-05-05 16:36] VITALS: BP 118/58; PULSE 113; RESP 20; TEMP 96.2; O2SAT 97
[2016-05-05] MEDS ORDERED: ACETAMINOPHEN/HYDROcodone 325 MG/10 MG TAB PO ONE (17:00)
[2016-05-05 18:08] LABS: AUTOMATED NEUTROPHIL # 13.3 TH/MM3 (1.8-7.7); BASOPHIL % 0.2 % (0.0-2.0); EOSINOPHIL # 0.1 TH/MM3 (0-0.4); EOSINOPHIL % 0.4 % (0.0-4.0); HEMATOCRIT 39.7 % (35.0-46.0); LYMPHOCYTE # 3.5 TH/MM3 (1.0-4.8); MEAN CELL VOLUME 89.3 FL (80.0-100.0); MEAN CORPUSCULAR HEMOGLOBIN 29.9 PG (27.0-34.0); MEAN CORPUSCULAR HGB CONC 33.5 % (32.0-36.0); MONO % 8.2 % (0.0-8.0); NEUT % 72.2 % (16.0-70.0); PLATELET COUNT 248 TH/MM3 (150-450); RED BLOOD COUNT 4.45 MIL/MM3 (4.00-5.30); RED CELL DISTRIBUTION WIDTH 15.3 % (11.6-17.2); WHITE BLOOD COUNT 18.4 TH/MM3 (4.0-11.0)
[2016-05-05 18:15] LABS: HEMO FLAGS AUTO DIFF
[2016-05-05] MEDS ORDERED: METOPROLOL TARTRATE 25 MG TAB PO ONE (18:15)
[2016-05-05 18:16] LABS: ALKALINE PHOSPHATASE 66 U/L (45-117); ALT (GPT) 39 U/L (10-53); ANION GAP 9 MEQ/L (5-15); AST (GOT) 12 U/L (15-37); BICARBONATE 27.9 MEQ/L (21.0-32.0); BLOOD UREA NITROGEN 21 MG/DL (7-18); CHLORIDE 102 MEQ/L (98-107); GLOMERULAR FILTRATION RATE 69 ML/MIN (>89); INDIRECT BILIRUBIN 0.3 MG/DL (0.0-0.8); MAGNESIUM 1.9 MG/DL (1.5-2.5); POTASSIUM 3.2 MEQ/L (3.5-5.1); SODIUM (NA) 139 MEQ/L (136-145); TOTAL BILIRUBIN ADULT 0.4 MG/DL (0.2-1.0)
[2016-05-05] MEDS ORDERED: POTASSIUM CHLORIDE 10 MEQ CAP PO ONE (18:30)
[2016-05-05 18:48] LABS: WESTERGREN SEDIMENTATION RATE 5 mm/hr (0-20)
[2016-05-05 18:51] LABS: BETA HCG QUANT LESS THAN 1 MIU/ML (0-5)
[2016-05-05 20:00] VITALS: BP 125/80; PULSE 101; RESP 18; TEMP 96.9; O2SAT 96
[2016-05-05] MEDS ORDERED: HYDROmorphone HCL PF 1 MG/ML VIAL IV PUSH ONE (20:00)
[2016-05-05 20:05] LABS: BANDS 4 % (0-6); CORRECTED NUCLEATED RBC 1 /100 WBC (0-0); METAMYELOCYTES 3 % (0-1); MYELOCYTES 2 % (0-0); NEUTROPHIL # MANUAL DIFF 13.8 TH/MM3 (1.8-7.7); POLYS (SEG NEUTROPHILS) 65 % (16-70); PROMYELOCYTES 1 % (0-0); WBC DIFF SAMPLE 100
[2016-05-05 20:07] LABS: PLATELET ESTIMATE SMEAR NORMAL (NORMAL); PLATELET MORPHOLOGY NORMAL (NORMAL); SCAN/DIFF FINAL DIFF MANUAL
[2016-05-05] MEDS ORDERED: POTASSIUM PHOSPHATE MONOBASIC 500 MG TAB PO SCH (21:00)
[2016-05-05] MEDS ORDERED: METOPROLOL TARTRATE 25 MG TAB PO SCH (21:00)
[2016-05-05] MEDS: ACETAMINOPHEN/HYDROcodone 325 MG/5 MG TAB PO PRN (23:31)
[2016-05-06] VITALS: BP 115/73; PULSE 80; RESP 18; TEMP 96; O2SAT 94
[2016-05-06] MEDS: ACETAMINOPHEN/HYDROcodone 325 MG/5 MG TAB PO PRN ×5 (03:23→22:38)
[2016-05-06 04:00] VITALS: BP 116/61; PULSE 73; RESP 16; TEMP 97.3; O2SAT 98
[2016-05-06 08:19] LABS: BICARBONATE 27.5 MEQ/L (21.0-32.0); MAGNESIUM 2.1 MG/DL (1.5-2.5); POTASSIUM 3.8 MEQ/L (3.5-5.1)
[2016-05-06 08:26] VITALS: BP 91/66; PULSE 83; RESP 17; TEMP 98; O2SAT 98
[2016-05-06] MEDS ORDERED: HYDROmorphone HCL PF 2 MG/ML VIAL IV PUSH STA (08:39)
[2016-05-06] MEDS: PANTOPRAZOLE SOD 40 MG DELAYED RELEASE TAB PO SCH (08:42)
[2016-05-06] MEDS: predniSONE 20 MG TAB PO SCH (08:42)
[2016-05-06] MEDS: HYDROmorphone HCL PF 1 MG/ML VIAL IV PUSH PRN ×5 (08:54→21:27)
[2016-05-06] MEDS: METOPROLOL TARTRATE 25 MG TAB PO SCH ×2 (09:00→17:59)
--- NOTE | 2016-05-06 09:50 | RADRPT ---
EXAM DATE/TIME: 05/06/2016 09:12 [facility] COMPARISON: No previous studies available for comparison. INDICATIONS : Inability to ambulate. Severe back pain. MEDICAL HISTORY : None. SURGICAL HISTORY : None. ENCOUNTER: Initial ACUITY: 2 day PAIN SCORE: 7/10 LOCATION: back TECHNIQUE: Multiplanar multisequence MRI of the lumbar spine was performed without contrast. FINDINGS: The most caudal appearing lumbar vertebra is numbered as L5. VERTEBRAE: Homogeneous signal. Normal alignment. CONUS: Normal level and configuration. T12-L1: The thecal sac has a normal diameter. No evidence of disc bulge or protrusion. The neural foramina are patent bilaterally. L1-L2: The thecal sac has a normal diameter. No evidence of disc bulge or protrusion. The neural foramina are patent bilaterally. L2-L3: The thecal sac has a normal diameter. No evidence of disc bulge or protrusion. The neural foramina are patent bilaterally. L3-L4: The thecal sac has a normal diameter. No evidence of disc bulge or protrusion. The neural foramina are patent bilaterally. L4-L5: There is mild disc space narrowing and disc desiccation consistent with degenerative disease. No sign ificant spinal stenosis, diffuse disc bulge or focal disc herniation is noted. No neural foraminal na rrowing is noted. The facet joints and ligaments are unremarkable. L5-S1: The thecal sac has a normal diameter. No evidence of disc bulge or protrusion. The neural foramina are patent bilaterally. CONCLUSION: Minimal degenerative disease at L4-5. Otherwise unremarkable MRI of the lumbar spine. Tony Thomas MD on May 06, 2016 at 9:45 Board Certified Radiologist. This report was verified electronically.
[2016-05-06] MEDS: CELECOXIB 200 MG CAP PO SCH (10:16)
[2016-05-06] MEDS ORDERED: ERGOCALCIFEROL (VIT D2) 50,000 UNIT CAP PO ONE (10:45)
[2016-05-06 12:48] VITALS: BP 133/76; PULSE 85; RESP 18; TEMP 96; O2SAT 98
[2016-05-06 17:25] VITALS: BP 107/65; PULSE 114; RESP 18; TEMP 97.5; O2SAT 97
[2016-05-06 20:00] VITALS: BP 139/87; PULSE 97; RESP 18; TEMP 97.3; O2SAT 97
--- NOTE | 2016-05-06 20:11 | HHI.PR ---
Subjective Remarks still with alot of muscle/joint pain tearful unable to walk Objective Vitals appears uncomfortable skin: no erythema/blisters old rash scars arms/legs amado facies heart reg lung cta abd s/nt ext no pitting general swelling from prednisone lower ext weakness of ext/flexion both proximal/distal Vital Signs Date Time Temp Pulse Resp B/P Pulse Ox O2 Delivery O2 Flow Rate FiO2 05/06/16 18:56 17 05/06/16 18:39 17 05/06/16 17:25 97.5 114 18 107/65 97 05/06/16 12:48 96.0 85 18 133/76 98 05/06/16 08:26 98.0 83 17 91/66 98 05/06/16 04:00 97.3 73 16 116/61 98 05/06/16 00:00 96.0 80 18 115/73 94 05/05/16 05/05/16 05/06/16 15:00 23:00 07:00 Intake Total 300 ml Balance 300 ml Intake Oral 300 ml # Voids 2 1 Result Diagram: 05/05/16 1731 05/06/16 0630 A/P Problem List: (1) Inability to walk Status: Acute Plan: Compllicated patient developed rash with arthralgias around 03/05 No definitive diagnosis has been made after extensive evaluation She was admitted 3 times and now 4 since that time. She has been seen and evaluated by [facility] with no specific diagnosis. Since presentation her rash has been very responsive to steroids but quickly returns with severe pain of joints/muscles upon tapering. She has been dependent on high dose steroids for past 2 months and now displays alot of side effects including weight gain/swelling. Now she is having difficulty with ambulation and we have to exclude steroid myopathy. She has had extensive CTD/AI w/up, infectious, and malignancy w/up. She has had 4 skin biopsies and seen by Dermatology. 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 But 3 subsequent biopsies have been negative for autoimmune or immune deposition diseases...and specifically no sign of vasculitis/ctd/blistering diseases, porphurea cut. tarda , dermatitis herpetiformis, sweet syndrome, fungal elements, etc. Her w/up since first admission were findings of svt, elevated cryoglobulins, positive IgM varicella, chronic hypoalbumenemia, low 25,OH vit d and high 1,25 dihydroxyvit d, hypophosphatemia. Long discussion with Dr Preciado bone marrow studies done 05/05 and pending we need to get this pt weaned down and off steroids yoly. She is contemplating another immunosuppressive drug such as cytoxan MRI L spine noted and just some mild degenerative dz L4/5 started prednisone wean she is in severe pain. provide prn po and iv meds for now. celebrex added repeat some lab w/up and order some additional testing as per orders. she just had ncs/emg at [place]. I reviewed the records sent today from [place]. NCS/ EMG were nml. PT evaluation noted...at this point unclear how quickly her muscle strength may recover with steroid taper. Doubt she would agree to a rehab. At this stage she is wheelchair bound and dependent. dvt prophylaxis (2) Vitamin D deficiency Status: Chronic Plan: see above (3) SVT (supraventricular tachycardia) Status: Chronic Plan: s/p eps cont bb (4) Hypophosphatemia Status: Acute Plan: replace (5) Hypokalemia Status: Acute Plan: replace (6) Hypoalbuminemia Status: Chronic Plan: unclear etiology. (7) Urticarial vasculitis Status: Acute Plan: see above Bay Jaramillo MD May 06, 2016 20:11
[2016-05-06] MEDS: TEMAZEPAM 15 MG CAP PO PRN (22:38)
[2016-05-06] MEDS ORDERED: HYDROmorphone HCL PF 1 MG/ML VIAL IV PUSH PRN (23:00)
[2016-05-07 00:06] VITALS: BP 133/76; PULSE 108; RESP 18; TEMP 97.4; O2SAT 97
[2016-05-07] MEDS: HYDROmorphone HCL PF 1 MG/ML VIAL IV PUSH PRN ×5 (00:16→16:16)
[2016-05-07 04:00] VITALS: BP 108/77; PULSE 85; RESP 20; TEMP 97.4; O2SAT 98
[2016-05-07] MEDS: ACETAMINOPHEN/HYDROcodone 325 MG/5 MG TAB PO PRN ×4 (06:29→21:44)
[2016-05-07 08:53] VITALS: BP_SYST 133; BP_SYST 78; BP_DIAS 78; PULSE 83; RESP 20; TEMP 96.7; O2SAT 96
[2016-05-07] MEDS: METOPROLOL TARTRATE 25 MG TAB PO SCH ×3 (09:23→21:43)
[2016-05-07] MEDS: CELECOXIB 200 MG CAP PO SCH (09:23)
[2016-05-07] MEDS: predniSONE 20 MG TAB PO SCH (09:23)
[2016-05-07] MEDS: PANTOPRAZOLE SOD 40 MG DELAYED RELEASE TAB PO SCH (09:23)
[2016-05-07 12:01] VITALS: BP 115/59; PULSE 80; RESP 20; TEMP 96.9; O2SAT 96
[2016-05-07 17:14] VITALS: BP 104/61; PULSE 84; RESP 20; TEMP 97.4; O2SAT 96
[2016-05-07 17:32] LABS: BLOOD, URINE NEG (NEG); COMMENT (UR) CULT NOT INDICATED; CULTURE IF INDICATED CULT NOT INDICATED; GLUCOSE,URINE 300 mg/dL (NEG); KETONE, URINE TRACE mg/dL (NEG); MUCUS URINE FEW /lpf (OCC); NITRITE,URINE NEG (NEG); SQUAMOUS EPITHELIAL CELL URINE 1 /hpf (0-5); URINE COLOR YELLOW (YELLW/STRAW)
[2016-05-07] MEDS ORDERED: MORPHINE SULFATE 30 MG CONTROLLED RELEASE TAB PO ONE (17:45)
--- NOTE | 2016-05-07 19:14 | HHI.PR ---
Subjective Remarks still very painful over muscles/joints and with movements. Objective Vitals amado facies general puffiness heart reg lung cta abd s/nt ext no pitting lower ext weakness planter/dorsiflexion ' and ext/flexion knee/hips Vital Signs Date Time Temp Pulse Resp B/P Pulse Ox O2 Delivery O2 Flow Rate FiO2 05/07/16 17:14 97.4 84 20 104/61 96 05/07/16 16:00 20 05/07/16 13:25 20 05/07/16 12:01 96.9 80 20 115/59 96 05/07/16 08:53 96.7 83 20 133/78 96 05/07/16 04:00 97.4 85 20 108/77 98 05/07/16 00:06 97.4 108 18 133/76 97 05/06/16 20:00 97.3 97 18 139/87 97 05/06/16 05/06/16 05/07/16 15:00 23:00 07:00 Intake Total 480 ml 480 ml Balance 480 ml 480 ml Intake Oral 480 ml 480 ml # Voids 2 2 # Bowel Movements 1 Result Diagram: 05/05/16 1731 05/06/16 0630 A/P Problem List: (1) Inability to walk Status: Acute Plan: Compllicated patient developed rash with arthralgias around 03/05 No definitive diagnosis has been made after extensive evaluation She was admitted 3 times and now 4 since that time. She has been seen and evaluated by [facility] with no specific diagnosis. Since presentation her rash has been very responsive to steroids but quickly returns with severe pain of joints/muscles upon tapering. She has been dependent on high dose steroids for past 2 months and now displays alot of side effects including weight gain/swelling. Now she is having difficulty with ambulation and we have to exclude steroid myopathy. She has had extensive CTD/AI w/up, infectious, and malignancy w/up. She has had 4 skin biopsies and seen by Dermatology. 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 But 3 subsequent biopsies have been negative for autoimmune or immune deposition diseases...and specifically no sign of vasculitis/ctd/blistering diseases, porphurea cut. tarda , dermatitis herpetiformis, sweet syndrome, fungal elements, etc. Her w/up since first admission were findings of svt, elevated cryoglobulins, positive IgM varicella, chronic hypoalbumenemia, low 25,OH vit d and high 1,25 dihydroxyvit d, hypophosphatemia. Long discussion with Dr Preciado. 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 We treated her with valtrex x 2 on admission one and two but her steroid taper was longer. We have decided to place her back her valtrex and continue to wean down the steroids as fast as we can. hold off on cytoxan. aggressively replace her severe vit d deficiency and hope this helps alot of her muscle pains. 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 her bone marrow bx results negative for malignancy MRI L spine noted and just some mild degenerative dz L4/5 she is in severe pain. provide prn po and iv meds for now. celebrex added repeat some lab w/up and order some additional testing as per orders. she just had ncs/emg at [place]. I reviewed the records sent from from [place]. NCS/ EMG were nml. PT evaluation noted...at this point unclear how quickly her muscle strength may recover with steroid taper. Doubt she would agree to a rehab. At this stage she is wheelchair bound and dependent. dvt prophylaxis Pt not interested in transfer to [facility] at this time. (2) Vitamin D deficiency Status: Chronic Plan: see above (3) SVT (supraventricular tachycardia) Status: Chronic Plan: s/p eps cont bb (4) Hypophosphatemia Status: Acute Plan: replace (5) Hypokalemia Status: Acute Plan: replace (6) Hypoalbuminemia Status: Chronic Plan: unclear etiology. (7) Urticarial vasculitis Status: Acute Plan: see above (8) Varicella Status: Acute Plan: see above Bay Jaramillo MD May 07, 2016 19:14
[2016-05-07] MEDS: MORPHINE SULFATE 4 MG/ML INJ IV PUSH PRN ×2 (19:15→23:07)
[2016-05-07 20:00] VITALS: BP 146/76; PULSE 100; RESP 18; TEMP 97.6; O2SAT 96
[2016-05-07] MEDS ORDERED: MORPHINE SULFATE 30 MG CONTROLLED RELEASE TAB PO SCH (21:00)
[2016-05-07] MEDS: valACYclovir HCL 500 MG TAB PO SCH (21:43)
[2016-05-07] MEDS: CALCIUM/VITAMIN D 250 MG/125 U TAB PO SCH (21:43)
[2016-05-07] MEDS ORDERED: valACYclovir HCL 500 MG TAB PO SCH (22:00)
[2016-05-08] MEDS: ACETAMINOPHEN/HYDROcodone 325 MG/5 MG TAB PO PRN ×7 (01:57→23:48)
[2016-05-08 03:51] LABS: IGA SERUM 146 mg/dL (81-463); TISSUE TRANSGLUTAMINASE AB IGG ND U/mL (())
[2016-05-08] MEDS: MORPHINE SULFATE 4 MG/ML INJ IV PUSH PRN ×6 (04:10→23:45)
[2016-05-08 05:00] VITALS: BP 118/71; PULSE 73; RESP 18; TEMP 97.8; O2SAT 97
[2016-05-08] MEDS: valACYclovir HCL 500 MG TAB PO SCH ×3 (05:58→22:27)
[2016-05-08 07:00] VITALS: BP 116/67; PULSE 80; RESP 20; TEMP 96.5; O2SAT 94
--- NOTE | 2016-05-08 07:04 | MB ---
cc: CHRISS HERNANDEZ M.D. DATE OF CONSULTATION 05/07/2016 DATE OF 1975 DATE OF SERVICE 05/07/[address] Bay Jaramillo CHIEF COMPLAINT Dr. Jaramillo requested consultation for Mrs. Herrera regarding systemic rash concerning for Sweet syndrome. HISTORY OF PRESENT ILLNESS Mr. Herrera is a 40-year-old woman with no significant past history. She is a voice coach and teacher. She has three young children below the age of five. She has had a recent injury in the right knee. Prior to her first hospitalization for the issue of the rash, she developed a blistering pustular rash on both arms involving the chest, neck and even in back of the left knee. In the early onset of the rash, she was treated empirically with antibiotic therapy for a superinfection and a course of steroids. She had tolerated the treatment well and seems to have improvement in the rash. However, after the course of steroids had finished, she had a significant flare-up and was admitted to the hospital on March 12, 2016. She had crops of vesicles on red base. Some nodular macular papular lesions. There are some resolving macular lesions over the anterior neck, some non-vesicular papular type ones on the arms and leg. Initially, she did not have any muscle or joint pain. She progressed on to have worsened joint pain after a second course of steroids. On initial admission, her CBC was normal. Her comprehensive metabolic panel was normal. Workup ensued. The initial finding from the hospitalization in February showed C-reactive protein that is elevated. Albumin that is decreased, NEELIMA negative, EBV positive for IgG, negative for IgM, CMV DNA quantitative PCR was undetected varicella zoster, IgG antibody was positive. Varicella zoster IgM antibody is positive. The Varicella zoster DNA PCR and peripheral blood was negative. Additional workup includes a brain MRI which was negative. Doppler ultrasound of the lower extremity shows no deep vein thromboses. She was treated empirically for the Varicella zoster with Valtrex. She was, at the same time, placed on steroids. On 60 mg of steroid, her rash began to dissipate. She was ultimately discharged on March 21. When her steroids were tapered, her skin lesions worsened. She was readmitted on March 29, 2016. She had re-eruption of the skin lesions. At this time, she was off Valtrex. She was off her steroids. The rash has increased and has become painful in the upper extremities, shoulders, anterior chest and legs. Her abdomen had been spared. In the interim, while she was discharged from the hospital, she was seen by a clam treader who performed an outpatient biopsy. Skin biopsy of the left arm on April 02 showed a mild interface dermatitis. A biopsy was performed of the left arm. The direct immunofluorescence was negative. Stain for fungal infection was negative. Differential included connective tissue disease as well as a drug reaction. Serologic workup for connective tissue disease was recommended. For this reason, a whole slew of work up including quantitative immunoglobulin, serum protein electrophoresis, urine immunofixation, rheumatoid factor and titer, CCP, IgG, NEELIMA, antimyeloma proteinase, antimyeloperoxidase, SSA and SSB antibody, C1 esterase inhibitor, complement, total complement, double-stranded DNA antibody, SM antibody and SM/BRAND AMBASSADOR PROMOTIONAL MODEL antibody were negative. The rheumatologic workup continued at [facility]. The diagnosis was elusive. The patient was ultimately discharged home on April 03. She again began her taper of steroids. The rheumatologic and connective tissue workup appeared to have been negative. It was long and thereafter was readmitted on April 08, 2016. He represented rapidly progressive multiform rash and vesicles, rule out plaques, nodules and erythema. The rash is painful. Workup so far was negative. [facility] suggests the possibility Sweet syndrome, although neutrophilic infiltrates were not seen on any of the skin biopsies. Ultimately, she was discharged home on April 12, 2016. She had continued her steroids. Because of the concern for Sweet syndrome and possible underlying malignancy, she was referred to Hematology/Oncology for a consultation and bone marrow biopsy evaluation. She was seen in hematology clinic on May 05, 2016. We coordinated an outpatient bone marrow biopsy evaluation. The final report is still pending. She tolerated the procedure well. Bone marrow biopsy aspiration was performed of the left posterior iliac crest. On the day of the bone marrow biopsy on first meeting, she reports that she all of a sudden could not wall. Her baseline is not known to me. Because of her inability to walk and the history supplemented by her mother, who was present at the consultation for the bone marrow biopsy, the case was discussed with Dr. Jaramillo who coordinated the patient's admission on May 05. Imaging study of the lumbar spine shows minimal degenerative disease at L4-5, otherwise unremarkable. She is able to flex and dorsiflex her lower extremities. She complains of pain mainly in the joints. She reports that the pain is less so in the muscles. 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 Physical therapy has been consulted to work that the patient. Hematology/Oncology is reconsulted to assist with a diagnostic evaluation for the patient's recurrent rash, arthralgias and a concern for Sweet syndrome. PAST MEDICAL HISTORY 1. Cryoglobulin positivity. 2. Varicella zoster IgM positivity. 3. Painful vesicular rash. 4. New lower extremity weakness. 5. Myalgias, arthralgias 6. Vitamin D deficiency. 7. Superior ventricular tachycardia. PAST SURGICAL HISTORY Bone marrow biopsy. ALLERGIES NO KNOWN DRUG ALLERGIES. FAMILY HISTORY No family history of bleeding disorder. Mother is alive and well. SOCIAL HISTORY Denies any tobacco, alcohol or illicit drug use. , lives with her . She has three young boys ages 5,4 and 2-1/2. CURRENT MEDICATIONS 1. Calcium 2. Vitamin D 3. Morphine sulfate 4. Metoprolol 5. Deltasone 40 mg 6. Lopressor 7. Protonix 8. Celebrex 9. [place] 10. Ondansetron 11. Restoril PHYSICAL EXAMINATION Temperature 97.6 heart rate 100, respiratory rate 18, blood pressure 146/76, saturation 96%. GENERAL: Mrs. Herrera is a 40-year-old woman with a history of vitamin D deficiency and superior ventricular tachycardia. Both conditions where diagnosis during her workup. She presented with a maculopapular vesicular rash which is painful. She had worsening symptoms after her first course of steroids. Her skin lesions resolve completely with steroid dose is greater than 60 mg. DISCUSSION I had a lengthy discussion Mrs. Herrera. She has had an extensive workup for rheumatologic or connective tissue disorder. Workup has been negative. The only significant finding is Varicella zoster IgG and IgM positivity. The PCI was negative, but it was done through peripheral blood. We discussed that her initial presentation is likely that of a severe zoster eruption. It is difficult to explain the back of the knee lesions, however the description and pictures that were available, are consistent with Varicella zoster in addition to the VIGM positivity. We discussed a general mechanism of action of the steroids. Her rash seems to respond to steroids. However, at the time the rash was responding to the steroids, she was not being treated for the varicella zoster. The thought of a vasculitis suggested by the skin biopsy is rational for using the steroids in the first place. It has become apparent that there is less evidence of vasculitis as an issue or a unifying diagnosis then is the Varicella zoster. We discussed continuing to taper her steroids. She has a lot of toxicity related to steroids at present. She has a Varun's appearance. She has gained a significant amount of weight. She has some leg swelling. We discussed that the immunosuppression does not allow her to clear the Varicella zoster virus. On repeat testing, the IgM is still positive. We considered culturing one of the blisters that is appearing once the steroids have decreased. The case was reviewed with Dr. Jaramillo who concurs with continuing her Valtrex until a resolution of her rash symptoms and completion of the viremia. We discussed the arthralgias that she is experiencing. She has a significant vitamin D deficiency. We reviewed the labs that shows decreased levels of vitamin D total. This is despite the attempts to give her a loading dose which started several weeks ago. Her vitamin D1, 25 dihydroxy vitamin D is elevated signifying the kidney's response to compensate for the vitamin D deficiency. PTH in fact is in the normal range, but above the normal range. There is a compensatory mechanism at play. Her calcium is low currently at 8.3 and 8.1. We discussed vitamin D deficient patients generally feel achy which is her presentation. It is interesting that her achiness began is poorly related to starting her steroids. We discussed the detrimental effects of long-term steroids on the bone. We discussed the plan to continue with physical therapy and treat her deconditioning. I anticipate that the Varun's appearance would continued to resolve. We will see how she does in the next several days. We will work with physical therapy. We will aggressively replace her vitamin D and calcium. This was in hopes of improving her arthralgias. She is also on anti-inflammatory medication. Valtrex will continue as treatment. We will follow cultures as the become available. No specific therapy is required for the superior ventricular tachycardia which has been evaluated by an EPS specialist. The arrhythmia could not be re-elicited during EPS study. We will continue Valtrex until resolution of her rash. Topical steroids could be used. Her questions were answered to her satisfaction. The above was explained at length. A unifying diagnosis is Varicella zoster infection complicated by severe vitamin D deficiency. Lastly, we discussed the flow cytometric analysis which was negative for underlying malignancy. We expected this as such. Her CBC was normal. We will follow the results of the final pathology for the bone marrow biopsy. MD SIMÓN Nava/COLLEEN /9:41 PM /6:32 AM
[2016-05-08] MEDS: ENOXAPARIN SODIUM 40 MG/0.4 ML SYRINGE SQ SCH (08:46)
[2016-05-08] MEDS: predniSONE 20 MG TAB PO SCH (08:49)
[2016-05-08] MEDS: CHOLECALCIFEROL (VIT D3) 1000 UNIT TAB PO SCH (08:49)
[2016-05-08] MEDS: PANTOPRAZOLE SOD 40 MG DELAYED RELEASE TAB PO SCH (08:49)
[2016-05-08] MEDS: CALCIUM/VITAMIN D 250 MG/125 U TAB PO SCH ×2 (08:51→22:27)
[2016-05-08] MEDS: CELECOXIB 200 MG CAP PO SCH (08:52)
--- NOTE | 2016-05-08 11:12 | PD.ONC.PN ---
Subjective Subjective Remarks Afebrile overnight. Patient resting comfortably. She states she is feeling a few new lesions pop up, but they don't have fluid in them. she has pain at the site of her bone marrow biopsy, left hip. Objective Data Date Time Temp Pulse Resp B/P Pulse Ox O2 Delivery O2 Flow Rate FiO2 05/08/16 08:53 15 05/08/16 05:00 97.8 73 18 118/71 97 05/07/16 20:00 97.6 100 18 146/76 96 05/07/16 17:14 97.4 84 20 104/61 96 05/07/16 16:00 20 05/07/16 13:25 20 05/07/16 12:01 96.9 80 20 115/59 96 05/08/16 05/08/16 05/08/16 07:00 15:00 23:00 Intake Total 360 ml Balance 360 ml Result Diagram: 05/05/16 1731 05/06/16 0630 Laboratory Results Laboratory Tests Test 05/07/16 16:45 Urine Color YELLOW Urine Turbidity CLEAR Urine pH 6.0 Urine Specific [place] 1.025 Urine Protein NEG mg/dL Urine Glucose (UA) 300 mg/dL Urine Ketones TRACE mg/dL Urine Occult Blood NEG Urine Nitrite NEG Urine Bilirubin NEG Urine Urobilinogen LESS THAN 2.0 MG/DL Urine Leukocyte Esterase NEG Urine RBC LESS THAN 1 /hpf Urine WBC 2 /hpf Urine Squamous Epithelial 1 /hpf Cells Urine Mucus FEW /lpf Microscopic Urinalysis Comment CULT NOT INDICATED Administered Medications Medications (Trade) Dose Ordered Sig/Nirmal Route PRN Reason Start Time Stop Time Status Last Admin Dose Admin Temazepam (Restoril) 15 mg HS PRN PO insomnia 05/05/16 16:30 05/06/16 22:38 Acetaminophen/ Hydrocodone Bitart ([place] 5-325 Mg) 1 tab Q4H PRN PO pain 1 to 5 05/05/16 17:00 05/08/16 05:58 Acetaminophen/ Hydrocodone Bitart ([place] 5-325 Mg) 2 tab Q4H PRN PO pain 6 to 10 05/05/16 17:00 05/08/16 01:57 Metoprolol Tartrate (Lopressor) 25 mg DAILY PO 05/06/16 09:00 05/07/16 21:43 Pantoprazole Sodium (Protonix) 40 mg DAILY PO 05/06/16 09:00 05/08/16 08:49 Celecoxib (CeleBREX) 200 mg DAILY PO 05/06/16 09:00 05/08/16 08:52 Morphine Sulfate (Morphine Inj) 4 mg Q3H PRN IV PUSH breakthrough pain over 7 05/07/16 17:30 05/08/16 08:48 Calcium/Vitamin D (Oscal-D 250-125) 500 mg Q12HR PO 05/07/16 21:00 05/08/16 08:51 Valacyclovir HCl (Valtrex) 1,000 mg Q8HR PO 05/07/16 20:00 05/08/16 05:58 Enoxaparin Sodium (Lovenox Inj) 40 mg Q24H SQ 05/08/16 09:00 05/08/16 08:46 Cholecalciferol (Vitamin D3) 1,000 units DAILY PO 05/08/16 09:00 05/08/16 08:49 Objective Remarks GENERAL: Pleasant young women with cushingoid appearance SKIN: Warm and dry. a few dry 3mm papules seen on back, no vesicle formation HEAD: Normocephalic. EYES: No scleral icterus. No injection or drainage. NECK: Supple, trachea midline. CARDIOVASCULAR: Regular rate and rhythm without murmurs. RESPIRATORY: Breath sounds equal bilaterally. No accessory muscle use. GASTROINTESTINAL: Abdomen soft, non-tender, nondistended. EXTREMITIES: No cyanosis. left hip with 1mm bone marrow puncture site and small surrounding bruise MUSCULOSKELETAL: Adequate muscle tone. NEUROLOGICAL: awake and alert, normal speech. 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 Varicella zoster IgM positivity. Painful vesicular rash. New lower extremity weakness. Myalgias, arthralgias Vitamin D deficiency. Superior ventricular tachycardia. Plan 1. continue Valtrex until resolution of rash 2. bone marrow biopsy results reviewed with patient 3. continue weaning prednisone 4. discussing obtaining another viral culture once new vesicles form--no vesicles to culture today. Attending Statement The exam, history, and the medical decision-making described in the above note were completed with the assistance of the mid-level provider. I reviewed and agree with the findings presented. I attest that I had a [id number] encounter with the patient on the same day, and personally performed and documented my assessment and findings in the medical record. Pt seen and examined. No vesicles persist, appears to pop and scab over. Leg seem better,still has pain. Swelling appears marginally lessened over face. Still sore at bone marrow biopsy site. BM biopsy essentially negative except for decreased cellularity, no dysmorphic features, flow is negative. Cytogenetics still pending. No iron deficiency. Anticipate will be negative. Lisa Spence May 08, 2016 11:12 Makenzie Preciado MD May 08, 2016 22:20 electrophoresis, urine immunofixation, rheumatoid factor and titer, CCP, IgG, NEELIMA, antimyeloma proteinase, antimyeloperoxidase, SSA and SSB antibody, C1 esterase inhibitor, complement, total complement, double-stranded DNA antibody, SM antibody and SM/COMMERCIAL HVAC SERVICE TECHNICIAN antibody were negative. The rheumatologic workup continued at [facility]. The diagnosis was elusive. The patient was ultimately discharged home on April 03. She again began her taper of steroids. The rheumatologic and connective tissue workup appeared to have been negative. Patient was readmitted on April 08, 2016. She represented rapidly progressive multiform rash and vesicles, rule out plaques, nodules and erythema. The rash was painful. Workup so far was negative. [facility] suggested the possibility Sweet syndrome, although neutrophilic infiltrates were not seen on any of the skin biopsies. Ultimately, she was discharged home on April 12, 2016. She had continued her steroids. Because of the concern for Sweet syndrome and possible underlying malignancy, she was referred to Hematology/Oncology for a consultation and bone marrow biopsy evaluation. She was seen in hematology clinic on May 05, 2016. We coordinated an outpatient bone marrow biopsy evaluation. The final report is still pending. She tolerated the procedure well. Bone marrow biopsy aspiration was performed of the left posterior iliac crest. Imaging study of the lumbar spine shows minimal degenerative disease at L4-5, otherwise unremarkable. She is able to flex and dorsiflex her lower extremities. She complains of pain mainly in the joints. She reports that the pain is less so in the muscles. 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 Physical therapy has been consulted to work that the patient. Hematology/Oncology is reconsulted to assist with a diagnostic evaluation for the patient's recurrent rash, arthralgias and a concern for Sweet syndrome. 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 Varicella zoster IgM positivity. Painful vesicular rash. New lower extremity weakness. Myalgias, arthralgias Vitamin D deficiency. Superior ventricular tachycardia. Lisa Spence May 08, 2016 11:12
--- NOTE | 2016-05-08 11:26 | HHI.PR ---
Subjective Remarks seemed happier. son was present. Objective Vitals few small lesion on chest..not clearly vesicular yet no real erythema amado facies may be a little better no distress. Vital Signs Date Time Temp Pulse Resp B/P Pulse Ox O2 Delivery O2 Flow Rate FiO2 05/08/16 08:53 15 05/08/16 07:00 96.5 80 20 116/67 94 05/08/16 05:00 97.8 73 18 118/71 97 05/07/16 20:00 97.6 100 18 146/76 96 05/07/16 17:14 97.4 84 20 104/61 96 05/07/16 16:00 20 05/07/16 13:25 20 05/07/16 12:01 96.9 80 20 115/59 96 05/07/16 05/07/16 05/08/16 15:00 23:00 07:00 Intake Total 1400 ml 360 ml Balance 1400 ml 360 ml Intake Oral 1400 ml 360 ml # Voids 3 2 Result Diagram: 05/05/16 1731 05/06/16 0630 A/P Problem List: (1) Inability to walk Status: Acute Plan: Compllicated patient developed rash with arthralgias around 03/05 No definitive diagnosis has been made after extensive evaluation She was admitted 3 times and now 4 since that time. She has been seen and evaluated by [facility] with no specific diagnosis. Since presentation her rash has been very responsive to steroids but quickly returns with severe pain of joints/muscles upon tapering. She has been dependent on high dose steroids for past 2 months and now displays alot of side effects including weight gain/swelling. Now she is having difficulty with ambulation and we have to exclude steroid myopathy. She has had extensive CTD/AI w/up, infectious, and malignancy w/up. She has had 4 skin biopsies and seen by Dermatology. 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 But 3 subsequent biopsies have been negative for autoimmune or immune deposition diseases...and specifically no sign of vasculitis/ctd/blistering diseases, porphurea cut. tarda , dermatitis herpetiformis, sweet syndrome, fungal elements, etc. Her w/up since first admission were findings of svt, elevated cryoglobulins, positive IgM varicella, chronic hypoalbumenemia, low 25,OH vit d and high 1,25 dihydroxyvit d, hypophosphatemia. Long discussion with Dr Preciado. 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 We treated her with valtrex x 2 on admission one and two but her steroid taper was longer. We have decided to place her back her valtrex and continue to wean down the steroids as fast as we can. hold off on cytoxan. aggressively replace her severe vit d deficiency and hope this helps alot of her muscle pains. 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 her bone marrow bx results negative for malignancy MRI L spine noted and just some mild degenerative dz L4/5 she is in severe pain. provide prn po and iv meds for now. celebrex added repeat some lab w/up and order some additional testing as per orders. she just had ncs/emg at [place]. I reviewed the records sent from from [place]. NCS/ EMG were nml. PT evaluation noted...at this point unclear how quickly her muscle strength may recover with steroid taper. Doubt she would agree to a rehab. At this stage she is wheelchair bound and dependent. dvt prophylaxis Culture skin lesions as they errupt. Pt not interested in transfer to [facility] at this time. (2) Vitamin D deficiency Status: Chronic Plan: see above (3) SVT (supraventricular tachycardia) Status: Chronic Plan: s/p eps cont bb (4) Hypophosphatemia Status: Acute Plan: replace (5) Hypokalemia Status: Acute Plan: replace (6) Hypoalbuminemia Status: Chronic Plan: unclear etiology. (7) Urticarial vasculitis Status: Acute Plan: see above (8) Varicella Status: Acute Plan: see above Bay Jaramillo MD May 08, 2016 11:26
[2016-05-08 12:47] VITALS: BP 123/86; PULSE 76; RESP 20; TEMP 96; O2SAT 95
[2016-05-08 17:12] VITALS: BP 126/70; PULSE 88; RESP 20; TEMP 98; O2SAT 96
[2016-05-08] MEDS: METOPROLOL TARTRATE 25 MG TAB PO SCH (19:13)
[2016-05-08 21:00] VITALS: BP 139/89; PULSE 73; RESP 17; TEMP 97.5; O2SAT 97
[2016-05-08] MEDS: TEMAZEPAM 15 MG CAP PO PRN (23:48)
[2016-05-09 01:09] VITALS: BP_SYST 127; BP_SYST 191; BP_DIAS 106; BP_DIAS 76; PULSE 109; PULSE 81; RESP 17; TEMP 97; TEMP 98; O2SAT 96; O2SAT 97
[2016-05-09] MEDS: MORPHINE SULFATE 4 MG/ML INJ IV PUSH PRN ×6 (03:15→21:40)
[2016-05-09] MEDS: ACETAMINOPHEN/HYDROcodone 325 MG/5 MG TAB PO PRN ×5 (05:51→21:41)
[2016-05-09] MEDS: valACYclovir HCL 500 MG TAB PO SCH ×3 (05:51→21:41)
[2016-05-09 05:59] VITALS: BP 108/59; PULSE 80; RESP 17; TEMP 97.9; O2SAT 98
[2016-05-09 07:40] LABS: BICARBONATE 28.6 MEQ/L (21.0-32.0); POTASSIUM 3.5 MEQ/L (3.5-5.1)
[2016-05-09 07:52] LABS: CD4/CD8 RATIO 1.8 (0.86-5.00)
[2016-05-09 08:37] VITALS: BP 124/66; PULSE 77; RESP 19; TEMP 97.7; O2SAT 96
[2016-05-09] MEDS ORDERED: POTASSIUM CHLORIDE 20 MEQ CONTROLLED RELEASE TAB PO ONE (09:00)
[2016-05-09] MEDS: ENOXAPARIN SODIUM 40 MG/0.4 ML SYRINGE SQ SCH (09:00)
[2016-05-09] MEDS: CHOLECALCIFEROL (VIT D3) 1000 UNIT TAB PO SCH (09:44)
[2016-05-09] MEDS: CALCIUM/VITAMIN D 250 MG/125 U TAB PO SCH ×2 (09:44→20:22)
[2016-05-09] MEDS: PANTOPRAZOLE SOD 40 MG DELAYED RELEASE TAB PO SCH (09:44)
[2016-05-09] MEDS: predniSONE 10 MG TAB PO SCH (09:44)
[2016-05-09] MEDS: CELECOXIB 200 MG CAP PO SCH (09:44)
[2016-05-09] MEDS: METOPROLOL TARTRATE 25 MG TAB PO SCH ×2 (09:44→17:41)
[2016-05-09 13:06] VITALS: BP 111/61; PULSE 82; RESP 17; TEMP 97.3; O2SAT 96
--- NOTE | 2016-05-09 13:56 | HHI.PR ---
Subjective Remarks seems more comfortable. Objective Vitals heart reg lung cta abd s/nt ext no pitting improved lower ext strength with plantar/dorsiflexion and ext/flex hip. Vital Signs Date Time Temp Pulse Resp B/P Pulse Ox O2 Delivery O2 Flow Rate FiO2 05/09/16 13:06 97.3 82 17 111/61 96 05/09/16 08:37 97.7 77 19 124/66 96 05/09/16 05:59 97.9 80 17 108/59 98 05/09/16 01:09 97.0 81 17 127/76 97 05/08/16 21:00 97.5 73 17 139/89 97 05/08/16 17:12 98.0 88 20 126/70 96 05/08/16 05/08/16 05/09/16 15:00 23:00 07:00 Intake Total 1200 ml 120 ml Balance 1200 ml 120 ml Intake Oral 1200 ml 120 ml # Voids 2 1 Result Diagram: 05/05/16 1731 05/09/16 0619 A/P Problem List: (1) Inability to walk Status: Acute Plan: Compllicated patient developed rash with arthralgias around 03/05 No definitive diagnosis has been made after extensive evaluation She was admitted 3 times and now 4 since that time. She has been seen and evaluated by [facility] with no specific diagnosis. Since presentation her rash has been very responsive to steroids but quickly returns with severe pain of joints/muscles upon tapering. She has been dependent on high dose steroids for past 2 months and now displays alot of side effects including weight gain/swelling. Now she is having difficulty with ambulation and we have to exclude steroid myopathy. She has had extensive CTD/AI w/up, infectious, and malignancy w/up. She has had 4 skin biopsies and seen by Dermatology. 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 But 3 subsequent biopsies have been negative for autoimmune or immune deposition diseases...and specifically no sign of vasculitis/ctd/blistering diseases, porphurea cut. tarda , dermatitis herpetiformis, sweet syndrome, fungal elements, etc. Her w/up since first admission were findings of svt, elevated cryoglobulins, positive IgM varicella, chronic hypoalbumenemia, low 25,OH vit d and high 1,25 dihydroxyvit d, hypophosphatemia. Long discussion with Dr Preciado. 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 We treated her with valtrex x 2 on admission one and two but her steroid taper was longer. We have decided to place her back her valtrex and continue to wean down the steroids as fast as we can. hold off on cytoxan. aggressively replace her severe vit d deficiency and hope this helps alot of her muscle pains. 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 informally discussed with neurology but we don't believe she need lp at this stage. her bone marrow bx results negative for malignancy MRI L spine noted and just some mild degenerative dz L4/5 she is in severe pain. provide prn po and iv meds for now. celebrex added repeat some lab w/up and order some additional testing as per orders. she just had ncs/emg at [place]. I reviewed the records sent from from [place]. NCS/ EMG were nml. PT evaluation noted...at this point unclear how quickly her muscle strength may recover with steroid taper. Doubt she would agree to a rehab. At this stage she is wheelchair bound and dependent. dvt prophylaxis Culture skin lesions as they errupt. Pt not interested in transfer to [facility] at this time. (2) Vitamin D deficiency Status: Chronic Plan: see above (3) SVT (supraventricular tachycardia) Status: Chronic Plan: s/p eps cont bb (4) Hypophosphatemia Status: Acute Plan: replace (5) Hypokalemia Status: Acute Plan: replace (6) Hypoalbuminemia Status: Chronic Plan: unclear etiology. (7) Urticarial vasculitis Status: Acute Plan: see above (8) Varicella Status: Acute Plan: see above Bay Jaramillo MD May 09, 2016 13:56
--- NOTE | 2016-05-09 14:12 | PD.ONC.PN ---
Subjective Subjective Remarks Afebrile overnight. Pt resting in bed in no distress. She states she has been working with PT to increase the strength in her legs. Her prednisone dose is now down to 30mg po daily. She states she does not currently have any vesicular lesions that can be cultured. Objective Data Date Time Temp Pulse Resp B/P Pulse Ox O2 Delivery O2 Flow Rate FiO2 05/09/16 13:06 97.3 82 17 111/61 96 05/09/16 08:37 97.7 77 19 124/66 96 05/09/16 05:59 97.9 80 17 108/59 98 05/09/16 01:09 97.0 81 17 127/76 97 05/08/16 21:00 97.5 73 17 139/89 97 05/08/16 17:12 98.0 88 20 126/70 96 05/09/16 05/09/16 05/09/16 07:00 15:00 23:00 Intake Total 120 ml 360 ml Balance 120 ml 360 ml Result Diagram: 05/05/16 1731 05/09/16 0619 Laboratory Results Laboratory Tests Test 05/09/16 06:19 Sodium Level 140 MEQ/L Potassium Level 3.5 MEQ/L Chloride Level 104 MEQ/L Carbon Dioxide Level 28.6 MEQ/L Anion Gap 7 MEQ/L Blood Urea Nitrogen 18 MG/DL Creatinine 0.67 MG/DL Estimat Glomerular Filtration 99 ML/MIN Rate Random Glucose 87 MG/DL Calcium Level 8.3 MG/DL Phosphorus Level 2.8 MG/DL Magnesium Level 2.0 MG/DL Administered Medications Medications (Trade) Dose Ordered Sig/Nirmal Route PRN Reason Start Time Stop Time Status Last Admin Dose Admin Temazepam (Restoril) 15 mg HS PRN PO insomnia 05/05/16 16:30 05/08/16 23:48 Acetaminophen/ Hydrocodone Bitart ([place] 5-325 Mg) 1 tab Q4H PRN PO pain 1 to 5 05/05/16 17:00 05/08/16 19:13 Acetaminophen/ Hydrocodone Bitart ([place] 5-325 Mg) 2 tab Q4H PRN PO pain 6 to 10 05/05/16 17:00 05/09/16 13:49 Metoprolol Tartrate (Lopressor) 25 mg DAILY PO 05/06/16 09:00 05/09/16 09:44 Metoprolol Tartrate (Lopressor) 25 mg DAILY@18 PO 05/06/16 18:00 05/08/16 19:13 Pantoprazole Sodium (Protonix) 40 mg DAILY PO 05/06/16 09:00 05/09/16 09:44 Celecoxib (CeleBREX) 200 mg DAILY PO 05/06/16 09:00 05/09/16 09:44 Calcium/Vitamin D (Oscal-D 250-125) 500 mg Q12HR PO 05/07/16 21:00 05/09/16 09:44 Valacyclovir HCl (Valtrex) 1,000 mg Q8HR PO 05/07/16 20:00 05/09/16 13:58 Enoxaparin Sodium (Lovenox Inj) 40 mg Q24H SQ 05/08/16 09:00 05/09/16 09:00 Prednisone (Deltasone) 30 mg DAILY PO 05/09/16 09:00 05/09/16 09:44 Morphine Sulfate (Morphine Inj) 2 mg Q3H PRN IV PUSH breakthrough pain over 7 05/08/16 16:30 05/09/16 10:29 Objective Remarks GENERAL: Pleasant young women with cushingoid appearance. SKIN: Warm and dry. Dried lesions noted to upper arms, back. HEAD: Normocephalic. EYES: No scleral icterus. No injection or drainage. NECK: Supple, trachea midline. CARDIOVASCULAR: Regular rate and rhythm without murmurs. RESPIRATORY: Breath sounds equal bilaterally. No accessory muscle use. GASTROINTESTINAL: Abdomen soft, non-tender, nondistended. EXTREMITIES: No cyanosis. No edema to BLE. NEUROLOGICAL: awake and alert, normal speech. 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 She was recently at the [facility] and was noted to have cryoglobulin positivity. Plan She is doing overall better. Her prednisone dose is being tapered, now down to 30mg po daily. No new major dermatologic lesions. Awaiting the cytogenics from [facility], it is expected to be normal. She is continuing with her dose of Vitamin D replacement. It was emphasized with the patient that maintaining physical therapy exercises in her legs was imperative. Her Cushingoid appearance will start to diminish once steroid dose is further tapered. Attending Statement The exam, history, and the medical decision-making described in the above note were completed with the assistance of the mid-level provider. I reviewed and agree with the findings presented. I attest that I had a [id number] encounter with the patient on the same day, and personally performed and documented my assessment and findings in the medical record. spoke to patient and Mom after reviewing chart indicating that there is no evidence of malignancy with extensive work up done. spoke about steroids and anticipate problems related to steroids will begin to resolve once she reaches 10 mg of prednisone. workup has been extensive and it is hard to add to what has been done Neda Currie May 09, 2016 14:12 Bay Bunch MD May 09, 2016 14:20
[2016-05-09 15:26] LABS: ARSENIC URINE Not Detected mcg/spec (0-35); AS CONC <15 mcg/L (0-35); LEAD CONC <1 mcg/L (0-4); MERCURY CONC <1 mcg/L (0-9); MERCURY URINE Not Detected mcg/spec (0-9)
[2016-05-09 16:35] VITALS: BP 136/82; PULSE 97; RESP 18; TEMP 97.7; O2SAT 100
[2016-05-09 20:00] VITALS: BP 114/57; PULSE 92; RESP 17; TEMP 97.6; O2SAT 96
[2016-05-09] MEDS ORDERED: CHOLECALCIFEROL (VIT D3) 5000 UNIT CAP PO ONE (21:00)
[2016-05-10 00:50] VITALS: BP 115/58; PULSE 76; RESP 16; TEMP 97.2; O2SAT 95
[2016-05-10] MEDS: MORPHINE SULFATE 4 MG/ML INJ IV PUSH PRN ×6 (00:59→23:53)
[2016-05-10] MEDS: ACETAMINOPHEN/HYDROcodone 325 MG/5 MG TAB PO PRN ×4 (01:24→21:03)
[2016-05-10 03:50] LABS: ENDOMYSIAL AB TITER ND (<1:5); TISSUE TRANSGLUTAMINASE AB LESS THAN 1 U/mL (())
[2016-05-10] MEDS: valACYclovir HCL 500 MG TAB PO SCH ×3 (04:56→21:02)
[2016-05-10 06:20] VITALS: BP 120/60; PULSE 84; RESP 17; TEMP 98.4; O2SAT 96
[2016-05-10 08:20] VITALS: BP 128/80; PULSE 90; RESP 17; TEMP 98.3; O2SAT 96
[2016-05-10] MEDS: CHOLECALCIFEROL (VIT D3) 5000 UNIT CAP PO SCH (09:00)
[2016-05-10] MEDS: CELECOXIB 200 MG CAP PO SCH (09:58)
[2016-05-10] MEDS: ENOXAPARIN SODIUM 40 MG/0.4 ML SYRINGE SQ SCH (09:58)
[2016-05-10] MEDS: PANTOPRAZOLE SOD 40 MG DELAYED RELEASE TAB PO SCH (09:58)
[2016-05-10] MEDS: predniSONE 10 MG TAB PO SCH (09:59)
[2016-05-10] MEDS: CALCIUM/VITAMIN D 250 MG/125 U TAB PO SCH ×2 (09:59→21:02)
[2016-05-10] MEDS: METOPROLOL TARTRATE 25 MG TAB PO SCH ×2 (09:59→18:52)
[2016-05-10] MEDS ORDERED: BISACODYL EC 5 MG TABEC PO PRN (11:45)
--- NOTE | 2016-05-10 11:45 | HHI.PR ---
Subjective Remarks no new skin lesions legs seem stronger family present. Objective Vitals heart reg lung cta abd s/nt ext no edema ext/flex, dorsiflex/ext of hips/knee/ankles all improving with strength. Vital Signs Date Time Temp Pulse Resp B/P Pulse Ox O2 Delivery O2 Flow Rate FiO2 05/10/16 08:20 98.3 90 17 128/80 96 05/10/16 06:20 98.4 84 17 120/60 96 05/10/16 00:50 97.2 76 16 115/58 95 05/09/16 20:00 97.6 92 17 114/57 96 05/09/16 16:35 97.7 97 18 136/82 100 05/09/16 13:06 97.3 82 17 111/61 96 05/09/16 05/09/16 05/10/16 15:00 23:00 07:00 Intake Total 360 ml 900 ml 975 ml Balance 360 ml 900 ml 975 ml Intake Oral 360 ml 900 ml 975 ml # Voids 2 1 4 # Bowel Movements 0 2 Result Diagram: 05/09/16 0619 A/P Problem List: (1) Inability to walk Status: Acute Plan: Compllicated patient developed rash with arthralgias around 03/05 No definitive diagnosis has been made after extensive evaluation She was admitted 3 times and now 4 since that time. She has been seen and evaluated by [facility] with no specific diagnosis. Since presentation her rash has been very responsive to steroids but quickly returns with severe pain of joints/muscles upon tapering. She has been dependent on high dose steroids for past 2 months and now displays alot of side effects including weight gain/swelling. Now she is having difficulty with ambulation and we have to exclude steroid myopathy. She has had extensive CTD/AI w/up, infectious, and malignancy w/up. She has had 4 skin biopsies and seen by Dermatology. 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 But 3 subsequent biopsies have been negative for autoimmune or immune deposition diseases...and specifically no sign of vasculitis/ctd/blistering diseases, porphurea cut. tarda , dermatitis herpetiformis, sweet syndrome, fungal elements, etc. Her w/up since first admission were findings of svt, elevated cryoglobulins, positive IgM varicella, chronic hypoalbumenemia, low 25,OH vit d and high 1,25 dihydroxyvit d, hypophosphatemia. Long discussion with Dr Preciado. 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 We treated her with valtrex x 2 on admission one and two but her steroid taper was longer. We have decided to place her back her valtrex and continue to wean down the steroids as fast as we can. hold off on cytoxan. aggressively replace her severe vit d deficiency and hope this helps alot of her muscle pains. 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 informally discussed with neurology but we don't believe she need lp at this stage. her bone marrow bx results negative for malignancy Her IgM has trended down to normal from February I think giving support to the varicella theory above. MRI L spine noted and just some mild degenerative dz L4/5 she is in severe pain. provide prn po and iv meds for now. celebrex added. wean down pain meds. repeat some lab w/up and order some additional testing as per orders. she just had ncs/emg at [place]. I reviewed the records sent from from [place]. NCS/ EMG were nml. PT evaluation noted...at this point unclear how quickly her muscle strength may recover with steroid taper. Doubt she would agree to a rehab. At this stage she is wheelchair bound and dependent. dvt prophylaxis Culture skin lesions as they errupt. Pt not interested in transfer to [facility] at this time. (2) Vitamin D deficiency Status: Chronic Plan: see above (3) SVT (supraventricular tachycardia) Status: Chronic Plan: s/p eps cont bb (4) Hypophosphatemia Status: Acute Plan: replace (5) Hypokalemia Status: Acute Plan: replace (6) Hypoalbuminemia Status: Chronic Plan: unclear etiology. (7) Urticarial vasculitis Status: Acute Plan: see above (8) Varicella Status: Acute Plan: see above Bay Jaramillo MD May 10, 2016 11:45
[2016-05-10 12:15] VITALS: BP 137/80; PULSE 95; RESP 20; TEMP 97.5; O2SAT 95
[2016-05-10 16:26] VITALS: BP 114/71; PULSE 111; RESP 17; TEMP 97.9; O2SAT 95
[2016-05-10] MEDS: DOCUSATE SODIUM 100 MG CAP PO SCH (21:02)
[2016-05-10 21:45] VITALS: BP 130/60; PULSE 97; RESP 17; TEMP 97.7; O2SAT 100
[2016-05-11 00:45] VITALS: BP 129/66; PULSE 89; RESP 18; TEMP 98.1; O2SAT 100
[2016-05-11] MEDS: ACETAMINOPHEN/HYDROcodone 325 MG/5 MG TAB PO PRN ×4 (01:15→15:56)
[2016-05-11 06:15] VITALS: BP 124/6; PULSE 79; RESP 18; TEMP 98.3; O2SAT 96
[2016-05-11] MEDS: MORPHINE SULFATE 4 MG/ML INJ IV PUSH PRN ×3 (06:17→21:40)
[2016-05-11] MEDS: valACYclovir HCL 500 MG TAB PO SCH ×3 (06:18→21:39)
[2016-05-11 08:00] VITALS: BP 118/76; PULSE 84; RESP 20; TEMP 97; O2SAT 95
[2016-05-11 08:46] LABS: BICARBONATE 28.9 MEQ/L (21.0-32.0); POTASSIUM 3.6 MEQ/L (3.5-5.1)
[2016-05-11] MEDS ORDERED: POTASSIUM CHLORIDE 20 MEQ CONTROLLED RELEASE TAB PO ONE (09:15)
[2016-05-11] MEDS: METOPROLOL TARTRATE 25 MG TAB PO SCH ×2 (09:34→17:19)
[2016-05-11] MEDS: CALCIUM/VITAMIN D 250 MG/125 U TAB PO SCH ×2 (09:34→21:41)
[2016-05-11] MEDS: predniSONE 20 MG TAB PO SCH (09:34)
[2016-05-11] MEDS: CELECOXIB 200 MG CAP PO SCH (09:34)
[2016-05-11] MEDS: DOCUSATE SODIUM 100 MG CAP PO SCH ×2 (09:34→21:39)
[2016-05-11] MEDS: ENOXAPARIN SODIUM 40 MG/0.4 ML SYRINGE SQ SCH (09:34)
[2016-05-11] MEDS: PANTOPRAZOLE SOD 40 MG DELAYED RELEASE TAB PO SCH (09:34)
[2016-05-11] MEDS: CHOLECALCIFEROL (VIT D3) 5000 UNIT CAP PO SCH (09:40)
--- NOTE | 2016-05-11 10:52 | PD.ONC.PN ---
Subjective Subjective Remarks Afebrile overnight. Patient reports feeling a bit stronger today. She had a few more lesions form, but they have already popped. Objective Data Date Time Temp Pulse Resp B/P Pulse Ox O2 Delivery O2 Flow Rate FiO2 05/11/16 08:00 97.0 84 20 118/76 95 05/11/16 06:15 98.3 79 18 124/6 96 05/11/16 00:45 98.1 89 18 129/66 100 05/10/16 21:45 97.7 97 17 130/60 100 05/10/16 16:26 97.9 111 17 114/71 95 05/10/16 15:15 15 05/10/16 14:20 15 05/10/16 12:15 97.5 95 20 137/80 95 05/10/16 11:12 15 05/11/16 05/11/16 05/11/16 07:00 15:00 23:00 Intake Total 900 ml Balance 900 ml Result Diagram: 05/11/16 0731 Laboratory Results Laboratory Tests Test 05/11/16 07:31 Sodium Level 140 MEQ/L Potassium Level 3.6 MEQ/L Chloride Level 101 MEQ/L Carbon Dioxide Level 28.9 MEQ/L Anion Gap 10 MEQ/L Blood Urea Nitrogen 18 MG/DL Creatinine 0.78 MG/DL Estimat Glomerular Filtration 83 ML/MIN Rate Random Glucose 90 MG/DL Calcium Level 8.6 MG/DL Phosphorus Level 3.0 MG/DL Magnesium Level 2.0 MG/DL 25-Hydroxy Vitamin D Total 14.0 ng/ML Administered Medications Medications (Trade) Dose Ordered Sig/Nirmal Route PRN Reason Start Time Stop Time Status Last Admin Dose Admin Temazepam (Restoril) 15 mg HS PRN PO insomnia 05/05/16 16:30 05/08/16 23:48 Acetaminophen/ Hydrocodone Bitart ([place] 5-325 Mg) 1 tab Q4H PRN PO pain 1 to 5 05/05/16 17:00 05/10/16 14:15 Acetaminophen/ Hydrocodone Bitart ([place] 5-325 Mg) 2 tab Q4H PRN PO pain 6 to 10 05/05/16 17:00 05/11/16 06:17 Metoprolol Tartrate (Lopressor) 25 mg DAILY PO 05/06/16 09:00 05/11/16 09:34 Metoprolol Tartrate (Lopressor) 25 mg DAILY@18 PO 05/06/16 18:00 05/10/16 18:52 Pantoprazole Sodium (Protonix) 40 mg DAILY PO 05/06/16 09:00 05/11/16 09:34 Celecoxib (CeleBREX) 200 mg DAILY PO 05/06/16 09:00 05/11/16 09:34 Calcium/Vitamin D (Oscal-D 250-125) 500 mg Q12HR PO 05/07/16 21:00 05/11/16 09:34 Valacyclovir HCl (Valtrex) 1,000 mg Q8HR PO 05/07/16 20:00 05/11/16 06:18 Enoxaparin Sodium (Lovenox Inj) 40 mg Q24H SQ 05/08/16 09:00 05/11/16 09:34 Cholecalciferol (Vitamin D3) 5,000 units DAILY PO 05/10/16 09:00 05/11/16 09:40 Docusate Sodium (Colace) 100 mg BID PO 05/10/16 21:00 05/11/16 09:34 Prednisone (Deltasone) 20 mg DAILY PO 05/11/16 09:00 05/11/16 09:34 Objective Remarks GENERAL: Pleasant young women with cushingoid appearance SKIN: Warm and dry. a few scattered 3mm circular papules, dry, scattered on upper extremities and torso, 1 lesion seen on left leg HEAD: Normocephalic. EYES: No scleral icterus. No injection or drainage. NECK: Supple, trachea midline. CARDIOVASCULAR: Regular rate and rhythm without murmurs. RESPIRATORY: Breath sounds equal bilaterally. No accessory muscle use. GASTROINTESTINAL: Abdomen soft, non-tender, nondistended. EXTREMITIES: No cyanosis. MUSCULOSKELETAL: Adequate muscle tone. NEUROLOGICAL: awake and alert, normal speech. able to move extremities. 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 She was recently at the [facility] and was noted to have cryoglobulin positivity. Plan 1. continue prednisone tapering per primary 2. continue Valtrex 3. would like to culture one of the vesicles when they are filled with fluid but them seem to be popping and draining quickly. d/w patient, will have nurse give her a viral culture swab, so that she can swab the next lesion that forms as soon as it pops. 4. oncology will sign off. we are available as needed. Attending Statement The exam, history, and the medical decision-making described in the above note were completed with the assistance of the mid-level provider. I reviewed and agree with the findings presented. I attest that I had a [id number] encounter with the patient on the same day, and personally performed and documented my assessment and findings in the medical record. Pt seen and examined. Walked to the door with walker. Still has pain. Vitamin D still low. Facial features returning, less swelling with steroid taper. Continue to have vesicle eruption, recent on R forearm but quickly dry over. 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 BM Biopsy report reviewed, cytogenetic pending but with NL bone marrow and flow anticipate results to be neg. Discussed with Dr. Jaramillo, will sign off. Lisa Spence May 11, 2016 10:52 Makenzie Preciado MD May 11, 2016 19:46
[2016-05-11 12:00] VITALS: BP 112/59; PULSE 81; RESP 20; TEMP 97; O2SAT 96
--- NOTE | 2016-05-11 12:59 | HHI.PR ---
Subjective Remarks on edge bed. concerned about open sores on wrists and forearms. some drainage. Objective Vitals heart reg lung cta abd s/nt ext right wrist/forearm ulcerative lesions with one on right wrist some pus left wrist lesions no pus.some clear fluid on surface sitting on edge bed amado facies. Vital Signs Date Time Temp Pulse Resp B/P Pulse Ox O2 Delivery O2 Flow Rate FiO2 05/11/16 08:00 97.0 84 20 118/76 95 05/11/16 06:15 98.3 79 18 124/6 96 05/11/16 00:45 98.1 89 18 129/66 100 05/10/16 21:45 97.7 97 17 130/60 100 05/10/16 16:26 97.9 111 17 114/71 95 05/10/16 15:15 15 05/10/16 14:20 15 05/10/16 05/10/16 05/11/16 15:00 23:00 07:00 Intake Total 875 ml 1200 ml 900 ml Balance 875 ml 1200 ml 900 ml Intake Oral 875 ml 1200 ml 900 ml # Voids 2 3 3 # Bowel Movements 1 0 0 Result Diagram: 05/11/16 0731 A/P Problem List: (1) Inability to walk Status: Acute Plan: Compllicated patient developed rash with arthralgias around 03/05 No definitive diagnosis has been made after extensive evaluation She was admitted 3 times and now 4 since that time. She has been seen and evaluated by [facility] with no specific diagnosis. Since presentation her rash has been very responsive to steroids but quickly returns with severe pain of joints/muscles upon tapering. She has been dependent on high dose steroids for past 2 months and now displays alot of side effects including weight gain/swelling. Now she is having difficulty with ambulation and we have to exclude steroid myopathy. She has had extensive CTD/AI w/up, infectious, and malignancy w/up. She has had 4 skin biopsies and seen by Dermatology. 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 But 3 subsequent biopsies have been negative for autoimmune or immune deposition diseases...and specifically no sign of vasculitis/ctd/blistering diseases, porphurea cut. tarda , dermatitis herpetiformis, sweet syndrome, fungal elements, etc. Her w/up since first admission were findings of svt, elevated cryoglobulins, positive IgM varicella, chronic hypoalbumenemia, low 25,OH vit d and high 1,25 dihydroxyvit d, hypophosphatemia. Long discussion with Dr Preciado. 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 We treated her with valtrex x 2 on admission one and two but her steroid taper was longer. We have decided to place her back her valtrex and continue to wean down the steroids as fast as we can. hold off on cytoxan. aggressively replace her severe vit d deficiency and hope this helps alot of her muscle pains. 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 informally discussed with neurology but we don't believe she need lp at this stage. her bone marrow bx results negative for malignancy Her IgM has trended down to normal from February I think giving support to the varicella theory above. MRI L spine noted and just some mild degenerative dz L4/5 she is in severe pain. provide prn po and iv meds for now. celebrex added. wean down pain meds. repeat some lab w/up and order some additional testing as per orders. she just had ncs/emg at [place]. I reviewed the records sent from from [facility]. NCS/ EMG were nml. PT evaluation noted...at this point unclear how quickly her muscle strength may recover with steroid taper.. At this stage she is wheelchair bound and dependent. dvt prophylaxis Pt not interested in transfer to [facility] at this time. She is not interested in snf or rehab. sent bacterial cx right wrist and viral cx left wrist today. mupirocin ordered. discussed with PT and needs to get oob more. continue steroid taper and goal of cessation before d/c home. discussed weaning off narcotics. (2) Vitamin D deficiency Status: Chronic Plan: see above (3) SVT (supraventricular tachycardia) Status: Chronic Plan: s/p eps cont bb (4) Hypophosphatemia Status: Acute Plan: replace (5) Hypokalemia Status: Acute Plan: replace (6) Hypoalbuminemia Status: Chronic Plan: unclear etiology. (7) Urticarial vasculitis Status: Acute Plan: see above (8) Varicella Status: Acute Plan: see above Bay Jaramillo MD May 11, 2016 12:59
[2016-05-11] MEDS: MUPIROCIN 2% OINT 22 GM TUBE TOPICAL SCH ×2 (13:13→21:41)
[2016-05-11 16:00] VITALS: BP 112/56; PULSE 102; RESP 20; TEMP 97.6; O2SAT 95
[2016-05-11 20:00] VITALS: BP 97/60; PULSE 79; RESP 20; TEMP 97.7; O2SAT 95
[2016-05-11 22:17] LABS: CRYOCRIT NONE DETECTED (NONE DETECTED)
[2016-05-11 23:54] LABS: VZV PCR RESULT <500 (())
[2016-05-12] VITALS: BP 111/30; PULSE 86; RESP 18; TEMP 97.7; O2SAT 96
[2016-05-12] MEDS: ACETAMINOPHEN/HYDROcodone 325 MG/5 MG TAB PO PRN ×4 (03:30→18:31)
[2016-05-12 04:00] VITALS: BP 109/72; PULSE 82; RESP 20; TEMP 98.5; O2SAT 97
[2016-05-12] MEDS: MORPHINE SULFATE 4 MG/ML INJ IV PUSH PRN ×2 (05:08→22:37)
[2016-05-12] MEDS: valACYclovir HCL 500 MG TAB PO SCH ×3 (05:08→22:36)
[2016-05-12] MEDS: MUPIROCIN 2% OINT 22 GM TUBE TOPICAL SCH ×3 (05:27→22:36)
[2016-05-12 08:00] VITALS: BP 135/59; PULSE 82; RESP 20; TEMP 97.4; O2SAT 96
[2016-05-12] MEDS: predniSONE 20 MG TAB PO SCH (08:32)
[2016-05-12] MEDS: DOCUSATE SODIUM 100 MG CAP PO SCH ×2 (08:32→22:36)
[2016-05-12] MEDS: CELECOXIB 200 MG CAP PO SCH (08:33)
[2016-05-12] MEDS: METOPROLOL TARTRATE 25 MG TAB PO SCH ×2 (08:33→18:30)
[2016-05-12] MEDS: CALCIUM/VITAMIN D 250 MG/125 U TAB PO SCH ×2 (08:33→22:36)
[2016-05-12] MEDS: PANTOPRAZOLE SOD 40 MG DELAYED RELEASE TAB PO SCH (08:33)
[2016-05-12] MEDS: ENOXAPARIN SODIUM 40 MG/0.4 ML SYRINGE SQ SCH (08:34)
[2016-05-12] MEDS ORDERED: ERGOCALCIFEROL (VIT D2) 50,000 UNIT CAP PO ONE (09:00)
[2016-05-12 12:00] VITALS: BP 126/58; PULSE 79; RESP 20; TEMP 98.1; O2SAT 95
--- NOTE | 2016-05-12 13:44 | HHI.PR ---
Subjective Remarks says she has some crop of lesions on right hip that burst. arms feel somewhat better. legs still painful. Objective Vitals less amado face forearms ulcerations with mild surrounding erythema.. no drainage heart reg lung cta abd s/nt ext no edema able to flex/extend hip/knee/ankle in bed. Vital Signs Date Time Temp Pulse Resp B/P Pulse Ox O2 Delivery O2 Flow Rate FiO2 05/12/16 12:00 98.1 79 20 126/58 95 05/12/16 08:00 97.4 82 20 135/59 96 05/12/16 05:15 18 05/12/16 04:51 19 05/12/16 04:00 98.5 82 20 109/72 97 05/12/16 00:00 97.7 86 18 111/30 96 05/11/16 20:00 97.7 79 20 97/60 95 05/11/16 16:00 97.6 102 20 112/56 95 05/11/16 05/11/16 05/12/16 15:00 23:00 07:00 Intake Total 240 ml Balance 240 ml Intake Oral 240 ml # Voids 4 0 # Bowel Movements 0 Result Diagram: 05/11/16 0731 A/P Problem List: (1) Inability to walk Status: Acute Plan: Compllicated patient developed rash with arthralgias around 03/05 No definitive diagnosis has been made after extensive evaluation She was admitted 3 times and now 4 since that time. She has been seen and evaluated by [facility] with no specific diagnosis. Since presentation her rash has been very responsive to steroids but quickly returns with severe pain of joints/muscles upon tapering. She has been dependent on high dose steroids for past 2 months and now displays alot of side effects including weight gain/swelling. Now she is having difficulty with ambulation and we have to exclude steroid myopathy. She has had extensive CTD/AI w/up, infectious, and malignancy w/up. She has had 4 skin biopsies and seen by Dermatology. 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 But 3 subsequent biopsies have been negative for autoimmune or immune deposition diseases...and specifically no sign of vasculitis/ctd/blistering diseases, porphurea cut. tarda , dermatitis herpetiformis, sweet syndrome, fungal elements, etc. Her w/up since first admission were findings of svt, elevated cryoglobulins, positive IgM varicella, chronic hypoalbumenemia, low 25,OH vit d and high 1,25 dihydroxyvit d, hypophosphatemia. Long discussion with Dr Preciado. 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 We treated her with valtrex x 2 on admission one and two but her steroid taper was longer. We have decided to place her back her valtrex and continue to wean down the steroids as fast as we can. hold off on cytoxan. aggressively replace her severe vit d deficiency and hope this helps alot of her muscle pains. 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 informally discussed with neurology but we don't believe she need lp at this stage. her bone marrow bx results negative for malignancy Her IgM has trended down to normal from February I think giving support to the varicella theory above. MRI L spine noted and just some mild degenerative dz L4/5 she is in severe pain. provide prn po and iv meds for now. celebrex added. wean down pain meds. repeat some lab w/up and order some additional testing as per orders. she just had ncs/emg at [place]. I reviewed the records sent from from [place]. NCS/ EMG were nml. PT evaluation noted...at this point unclear how quickly her muscle strength may recover with steroid taper.. At this stage she is wheelchair bound and dependent. dvt prophylaxis Pt not interested in transfer to [facility] at this time. She is not interested in snf or rehab. sent bacterial cx right wrist(grow staph aureus) and viral cx left wrist 05/11. mupirocin ordered. discussed with PT and needs to get oob more. continue steroid taper and goal of cessation before d/c home. few areas of outbreak but not to bad. discussed weaning off narcotics. (2) Vitamin D deficiency Status: Chronic Plan: see above (3) SVT (supraventricular tachycardia) Status: Chronic Plan: s/p eps cont bb (4) Hypophosphatemia Status: Acute Plan: replace (5) Hypokalemia Status: Acute Plan: replace (6) Hypoalbuminemia Status: Chronic Plan: unclear etiology. (7) Urticarial vasculitis Status: Acute Plan: see above (8) Varicella Status: Acute Plan: see above Bay Jaramillo MD May 12, 2016 13:44
[2016-05-12 16:00] VITALS: BP 113/56; PULSE 96; RESP 20; TEMP 97.6; O2SAT 95
[2016-05-12 21:00] VITALS: BP 139/80; PULSE 79; RESP 20; TEMP 97.4; O2SAT 97
[2016-05-12] MEDS: CHOLECALCIFEROL (VIT D3) 5000 UNIT CAP PO SCH (21:00)
[2016-05-13] VITALS (7 sets, daily range): BP systolic 94–114; BP diastolic 51–67; PULSE 74–101; RESP 18–22; TEMP 97–98.2; O2SAT 94–96
[2016-05-13] MEDS: ACETAMINOPHEN/HYDROcodone 325 MG/5 MG TAB PO PRN ×5 (00:26→22:14)
[2016-05-13] MEDS: MUPIROCIN 2% OINT 22 GM TUBE TOPICAL SCH ×2 (06:00→14:15)
[2016-05-13] MEDS: valACYclovir HCL 500 MG TAB PO SCH ×3 (06:43→22:08)
[2016-05-13 07:35] LABS: BICARBONATE 26.8 MEQ/L (21.0-32.0); INDIRECT BILIRUBIN 0.1 MG/DL (0.0-0.8); MAGNESIUM 2.1 MG/DL (1.5-2.5); POTASSIUM 3.7 MEQ/L (3.5-5.1); TOTAL BILIRUBIN ADULT 0.2 MG/DL (0.2-1.0)
[2016-05-13] MEDS ORDERED: CHOLECALCIFEROL (VIT D3) 5000 UNIT CAP PO SCH (09:00)
[2016-05-13] MEDS: PANTOPRAZOLE SOD 40 MG DELAYED RELEASE TAB PO SCH (09:31)
[2016-05-13] MEDS: CELECOXIB 200 MG CAP PO SCH (09:31)
[2016-05-13] MEDS: ENOXAPARIN SODIUM 40 MG/0.4 ML SYRINGE SQ SCH (09:31)
[2016-05-13] MEDS: CHOLECALCIFEROL (VIT D3) 5000 UNIT CAP PO SCH ×2 (09:32→22:08)
[2016-05-13] MEDS: CALCIUM/VITAMIN D 250 MG/125 U TAB PO SCH ×2 (09:35→22:08)
[2016-05-13] MEDS: METOPROLOL TARTRATE 25 MG TAB PO SCH ×2 (09:35→17:55)
[2016-05-13] MEDS: predniSONE 10 MG TAB PO SCH (09:35)
[2016-05-13] MEDS: DOCUSATE SODIUM 100 MG CAP PO SCH ×2 (09:36→22:08)
[2016-05-13 11:07] LABS: VZV RESULT Negative (Negative); VZV SPECIMEN SOURCE LEFT WRIST (())
--- NOTE | 2016-05-13 13:16 | HHI.PR ---
Subjective Remarks thinks she is making progress with PT. Objective Vitals amado face improved heart reg lung cta abd s/nt ext no edema forearms with superficial erosions and surrounding erythema. no drainage. 1 small erosion on ant chest with redness. no drainage. Vital Signs Date Time Temp Pulse Resp B/P Pulse Ox O2 Delivery O2 Flow Rate FiO2 05/13/16 10:08 98.1 74 18 114/56 95 05/13/16 05:00 97.0 78 18 113/65 95 05/13/16 01:40 19 05/13/16 00:17 97.6 87 18 110/64 96 05/12/16 22:46 18 05/12/16 21:00 97.4 79 20 139/80 97 05/12/16 16:00 97.6 96 20 113/56 95 05/12/16 05/12/16 05/13/16 15:00 23:00 07:00 # Voids 1 # Bowel Movements 0 Result Diagram: 05/13/16 0613 A/P Problem List: (1) Inability to walk Status: Acute Plan: Compllicated patient developed rash with arthralgias around 03/05 No definitive diagnosis has been made after extensive evaluation She was admitted 3 times and now 4 since that time. She has been seen and evaluated by [facility] with no specific diagnosis. Since presentation her rash has been very responsive to steroids but quickly returns with severe pain of joints/muscles upon tapering. She has been dependent on high dose steroids for past 2 months and now displays alot of side effects including weight gain/swelling. Now she is having difficulty with ambulation and we have to exclude steroid myopathy. She has had extensive CTD/AI w/up, infectious, and malignancy w/up. She has had 4 skin biopsies and seen by Dermatology. 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 But 3 subsequent biopsies have been negative for autoimmune or immune deposition diseases...and specifically no sign of vasculitis/ctd/blistering diseases, porphurea cut. tarda , dermatitis herpetiformis, sweet syndrome, fungal elements, etc. Her w/up since first admission were findings of svt, elevated cryoglobulins, positive IgM varicella, chronic hypoalbumenemia, low 25,OH vit d and high 1,25 dihydroxyvit d, hypophosphatemia. Long discussion with Dr Preciado. 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 We treated her with valtrex x 2 on admission one and two but her steroid taper was longer. We have decided to place her back her valtrex and continue to wean down the steroids as fast as we can. hold off on cytoxan. aggressively replace her severe vit d deficiency and hope this helps alot of her muscle pains. 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 informally discussed with neurology but we don't believe she need lp at this stage. her bone marrow bx results negative for malignancy Her IgM has trended down to normal from February I think giving support to the varicella theory above. MRI L spine noted and just some mild degenerative dz L4/5 she is in severe pain. provide prn po and iv meds for now. celebrex added. wean down pain meds. repeat some lab w/up and order some additional testing as per orders. she just had ncs/emg at [place]. I reviewed the records sent from from [place]. NCS/ EMG were nml. PT evaluation noted...at this point unclear how quickly her muscle strength may recover with steroid taper.. At this stage she is wheelchair bound and dependent. dvt prophylaxis Pt not interested in transfer to [facility] at this time. She is not interested in snf or rehab. sent bacterial cx right wrist(grow staph aureus) and viral cx left wrist 05/11. mssa growing from the right wrist. the left wrist cx was bad sample and really no drainage when cx'ed. mupirocin ordered. discussed with PT and needs to get oob more. continue steroid taper and goal of cessation before d/c home. dropped to 10mg .few areas of outbreak but not to bad. discussed weaning off narcotics. (2) Vitamin D deficiency Status: Chronic Plan: see above (3) SVT (supraventricular tachycardia) Status: Chronic Plan: s/p eps cont bb (4) Hypophosphatemia Status: Acute Plan: replace (5) Hypokalemia Status: Acute Plan: replace (6) Hypoalbuminemia Status: Chronic Plan: unclear etiology. (7) Urticarial vasculitis Status: Acute Plan: see above (8) Varicella Status: Acute Plan: see above Bay Jaramillo MD May 13, 2016 13:16
[2016-05-13] MEDS: MORPHINE SULFATE 4 MG/ML INJ IV PUSH PRN ×2 (14:51→23:55)
[2016-05-14] VITALS: BP 123/71; PULSE 113; RESP 20; TEMP 97; O2SAT 99
[2016-05-14] MEDS: ACETAMINOPHEN/HYDROcodone 325 MG/5 MG TAB PO PRN ×3 (03:47→18:12)
[2016-05-14 04:00] VITALS: BP 100/60; PULSE 122; RESP 20; TEMP 97.8; O2SAT 97
[2016-05-14] MEDS: MORPHINE SULFATE 4 MG/ML INJ IV PUSH PRN ×2 (06:23→16:05)
[2016-05-14] MEDS: valACYclovir HCL 500 MG TAB PO SCH ×3 (06:24→20:53)
[2016-05-14] MEDS: MUPIROCIN 2% OINT 22 GM TUBE TOPICAL SCH ×3 (06:25→14:00)
[2016-05-14 08:00] VITALS: BP 109/63; PULSE 102; RESP 20; TEMP 97.8; O2SAT 95
[2016-05-14] MEDS ORDERED: ERGOCALCIFEROL (VIT D2) 50,000 UNIT CAP PO ONE (09:00)
[2016-05-14] MEDS: METOPROLOL TARTRATE 25 MG TAB PO SCH ×3 (09:00→20:45)
[2016-05-14] MEDS: CALCIUM/VITAMIN D 250 MG/125 U TAB PO SCH ×2 (09:19→20:37)
[2016-05-14] MEDS: PANTOPRAZOLE SOD 40 MG DELAYED RELEASE TAB PO SCH (09:19)
[2016-05-14] MEDS: ENOXAPARIN SODIUM 40 MG/0.4 ML SYRINGE SQ SCH (09:19)
[2016-05-14] MEDS: CELECOXIB 200 MG CAP PO SCH (09:19)
[2016-05-14] MEDS: DOCUSATE SODIUM 100 MG CAP PO SCH ×2 (09:19→20:37)
[2016-05-14] MEDS: predniSONE 10 MG TAB PO SCH (09:19)
[2016-05-14 12:52] VITALS: BP 101/69; PULSE 90; RESP 20; TEMP 98; O2SAT 96
--- NOTE | 2016-05-14 13:45 | HHI.PR ---
Subjective Remarks said right arm/face was swollen this AM but seems better now. no drainage from right forearm sores. still using wheelchair alot. nausea last night. Objective Vitals heent less amado face heart reg lung cta abd s/nt ext no pitting skin: forearms with ulcerations/mild surrounding erythema. no drainage. no lymphangitis. 1 ulceration left ant chest. Vital Signs Date Time Temp Pulse Resp B/P Pulse Ox O2 Delivery O2 Flow Rate FiO2 05/14/16 12:52 98.0 90 20 101/69 96 05/14/16 08:00 97.8 102 20 109/63 95 05/14/16 04:00 97.8 122 20 100/60 97 05/14/16 00:00 97.0 113 20 123/71 99 05/13/16 20:00 97.2 95 22 109/67 96 05/13/16 18:16 98.1 92 18 97/52 94 05/13/16 17:59 101 103/51 05/13/16 14:29 98.2 98 18 94/52 95 05/13/16 05/13/16 05/14/16 14:59 22:59 06:59 Intake Total 460 ml 120 ml Balance 460 ml 120 ml Intake Oral 460 ml 120 ml # Voids 2 1 # Bowel Movements 1 0 Result Diagram: 05/13/16 0613 A/P Problem List: (1) Inability to walk Status: Acute Plan: Compllicated patient developed rash with arthralgias around 03/05 No definitive diagnosis has been made after extensive evaluation She was admitted 3 times and now 4 since that time. She has been seen and evaluated by [facility] with no specific diagnosis. Since presentation her rash has been very responsive to steroids but quickly returns with severe pain of joints/muscles upon tapering. She has been dependent on high dose steroids for past 2 months and now displays alot of side effects including weight gain/swelling. Now she is having difficulty with ambulation and we have to exclude steroid myopathy. She has had extensive CTD/AI w/up, infectious, and malignancy w/up. She has had 4 skin biopsies and seen by Dermatology. 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 But 3 subsequent biopsies have been negative for autoimmune or immune deposition diseases...and specifically no sign of vasculitis/ctd/blistering diseases, porphurea cut. tarda , dermatitis herpetiformis, sweet syndrome, fungal elements, etc. Her w/up since first admission were findings of svt, elevated cryoglobulins, positive IgM varicella, chronic hypoalbumenemia, low 25,OH vit d and high 1,25 dihydroxyvit d, hypophosphatemia. Long discussion with Dr Preciado. 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 We treated her with valtrex x 2 on admission one and two but her steroid taper was longer. We have decided to place her back her valtrex and continue to wean down the steroids as fast as we can. hold off on cytoxan. aggressively replace her severe vit d deficiency and hope this helps alot of her muscle pains. 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 informally discussed with neurology but we don't believe she need lp at this stage. her bone marrow bx results negative for malignancy Her IgM has trended down to normal from February I think giving support to the varicella theory above. MRI L spine noted and just some mild degenerative dz L4/5 she is in severe pain. provide prn po and iv meds for now. celebrex added. wean down pain meds. repeat some lab w/up and order some additional testing as per orders. she just had ncs/emg at [place]. I reviewed the records sent from from [place]. NCS/ EMG were nml. PT evaluation noted...at this point unclear how quickly her muscle strength may recover with steroid taper.. At this stage she is wheelchair bound and dependent. dvt prophylaxis Pt not interested in transfer to [facility] at this time. She is hasn't been interested in snf or rehab. But now was considering rehab a little bit if offered [facility]. sent bacterial cx right wrist(grow staph aureus) and viral cx left wrist 05/11. mssa growing from the right wrist. the left wrist cx was bad sample and really no drainage when cx'ed. mupirocin ordered. discussed with PT and needs to get oob more. continue steroid taper and goal of cessation before d/c home. drop to 5mg in AM .few areas of outbreak but not to bad. discussed weaning off narcotics. (2) Vitamin D deficiency Status: Chronic Plan: see above (3) SVT (supraventricular tachycardia) Status: Chronic Plan: s/p eps cont bb (4) Hypophosphatemia Status: Acute Plan: replace (5) Hypokalemia Status: Acute Plan: replace (6) Hypoalbuminemia Status: Chronic Plan: unclear etiology. (7) Urticarial vasculitis Status: Acute Plan: see above (8) Varicella Status: Acute Plan: see above Bay Jaramillo MD May 14, 2016 13:45
[2016-05-14] MEDS ORDERED: PILL SPLITTER OTHER PRN (14:00)
[2016-05-14 16:00] VITALS: BP 117/69; PULSE 108; RESP 20; TEMP 97.9; O2SAT 96
[2016-05-14] MEDS ORDERED: METOPROLOL TARTRATE 25 MG TAB PO SCH (18:00)
[2016-05-14 20:00] VITALS: BP 125/73; PULSE 106; RESP 18; TEMP 97.7; O2SAT 98
[2016-05-15] MEDS: ACETAMINOPHEN/HYDROcodone 325 MG/5 MG TAB PO PRN ×3 (01:35→18:03)
[2016-05-15] MEDS: MUPIROCIN 2% OINT 22 GM TUBE TOPICAL SCH ×3 (01:36→14:49)
[2016-05-15 04:00] VITALS: BP 90/55; PULSE 96; RESP 18; TEMP 97.2; O2SAT 97
[2016-05-15 06:49] LABS: AUTOMATED NEUTROPHIL # 5.5 TH/MM3 (1.8-7.7); BASOPHIL # 0.1 TH/MM3 (0-0.2); BASOPHIL % 0.9 % (0.0-2.0); EOSINOPHIL # 0.2 TH/MM3 (0-0.4); EOSINOPHIL % 2.4 % (0.0-4.0); HEMATOCRIT 36.7 % (35.0-46.0); LYMPH % 27.4 % (9.0-44.0); LYMPHOCYTE # 2.5 TH/MM3 (1.0-4.8); MEAN CELL VOLUME 89.8 FL (80.0-100.0); MEAN CORPUSCULAR HEMOGLOBIN 31.9 PG (27.0-34.0); MEAN CORPUSCULAR HGB CONC 35.5 % (32.0-36.0); MONO % 9.3 % (0.0-8.0); PLATELET COUNT 203 TH/MM3 (150-450); RED BLOOD COUNT 4.09 MIL/MM3 (4.00-5.30); RED CELL DISTRIBUTION WIDTH 16.4 % (11.6-17.2); WHITE BLOOD COUNT 9.1 TH/MM3 (4.0-11.0)
[2016-05-15] MEDS: valACYclovir HCL 500 MG TAB PO SCH ×3 (06:50→21:49)
[2016-05-15 06:51] LABS: HEMO FLAGS AUTO DIFF
[2016-05-15 06:58] LABS: BICARBONATE 27.6 MEQ/L (21.0-32.0)
[2016-05-15 08:00] VITALS: BP 113/71; PULSE 82; RESP 20; TEMP 98.1; O2SAT 98
[2016-05-15 08:59] LABS: BANDS 3 % (0-6); BASOPHILS 3 % (0-2); EOSINOPHILS 2 % (0-4); METAMYELOCYTES 2 % (0-1); NEUTROPHIL # MANUAL DIFF 6.2 TH/MM3 (1.8-7.7); PLATELET ESTIMATE SMEAR NORMAL (NORMAL); PLATELET MORPHOLOGY NORMAL (NORMAL); POLYS (SEG NEUTROPHILS) 63 % (16-70); SCAN/DIFF FINAL DIFF MANUAL; WBC DIFF SAMPLE 100
[2016-05-15] MEDS: METOPROLOL TARTRATE 25 MG TAB PO SCH ×3 (09:00→17:35)
[2016-05-15] MEDS: DOCUSATE SODIUM 100 MG CAP PO SCH ×2 (09:13→21:00)
[2016-05-15] MEDS: predniSONE 5 MG TAB PO SCH (09:13)
[2016-05-15] MEDS: ENOXAPARIN SODIUM 40 MG/0.4 ML SYRINGE SQ SCH (09:13)
[2016-05-15] MEDS: CELECOXIB 200 MG CAP PO SCH (09:13)
[2016-05-15] MEDS: CHOLECALCIFEROL (VIT D3) 5000 UNIT CAP PO SCH ×2 (09:14→21:50)
[2016-05-15] MEDS: PANTOPRAZOLE SOD 40 MG DELAYED RELEASE TAB PO SCH (09:14)
[2016-05-15] MEDS: CALCIUM/VITAMIN D 250 MG/125 U TAB PO SCH ×2 (09:14→21:51)
[2016-05-15 12:46] VITALS: BP 115/63; PULSE 113; RESP 20; TEMP 97.9; O2SAT 96
--- NOTE | 2016-05-15 15:22 | HHI.PR ---
Subjective Remarks few small lesions new on hand. Objective Vitals small almost vesicular appearing lesions on hand small erosions with minimal erythema on forearms/wrists. heart reg lung cta abd s/nt ext no edema Vital Signs Date Time Temp Pulse Resp B/P Pulse Ox O2 Delivery O2 Flow Rate FiO2 05/15/16 12:46 97.9 113 20 115/63 96 05/15/16 08:00 98.1 82 20 113/71 98 05/15/16 04:00 97.2 96 18 90/55 97 05/14/16 20:00 97.7 106 18 125/73 98 05/14/16 16:00 97.9 108 20 117/69 96 05/14/16 05/14/16 05/15/16 15:00 23:00 07:00 Intake Total 480 ml 300 ml Balance 480 ml 300 ml Intake Oral 480 ml 300 ml # Voids 3 2 # Bowel Movements 1 Result Diagram: 05/15/16 0546 05/15/16 0546 A/P Problem List: (1) Inability to walk Status: Acute Plan: Compllicated patient developed rash with arthralgias around 03/05 No definitive diagnosis has been made after extensive evaluation She was admitted 3 times and now 4 since that time. She has been seen and evaluated by [facility] with no specific diagnosis. Since presentation her rash has been very responsive to steroids but quickly returns with severe pain of joints/muscles upon tapering. She has been dependent on high dose steroids for past 2 months and now displays alot of side effects including weight gain/swelling. Now she is having difficulty with ambulation and we have to exclude steroid myopathy. She has had extensive CTD/AI w/up, infectious, and malignancy w/up. She has had 4 skin biopsies and seen by Dermatology. 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 But 3 subsequent biopsies have been negative for autoimmune or immune deposition diseases...and specifically no sign of vasculitis/ctd/blistering diseases, porphurea cut. tarda , dermatitis herpetiformis, sweet syndrome, fungal elements, etc. Her w/up since first admission were findings of svt, elevated cryoglobulins, positive IgM varicella, chronic hypoalbumenemia, low 25,OH vit d and high 1,25 dihydroxyvit d, hypophosphatemia. Long discussion with Dr Preciado. 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 We treated her with valtrex x 2 on admission one and two but her steroid taper was longer. We have decided to place her back her valtrex and continue to wean down the steroids as fast as we can. hold off on cytoxan. aggressively replace her severe vit d deficiency and hope this helps alot of her muscle pains. 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 informally discussed with neurology but we don't believe she need lp at this stage. her bone marrow bx results negative for malignancy Her IgM has trended down to normal from February I think giving support to the varicella theory above. MRI L spine noted and just some mild degenerative dz L4/5 she is in severe pain. provide prn po and iv meds for now. celebrex added. wean down pain meds. repeat some lab w/up and order some additional testing as per orders. she just had ncs/emg at [place]. I reviewed the records sent from from [place]. NCS/ EMG were nml. PT evaluation noted...at this point unclear how quickly her muscle strength may recover with steroid taper.. At this stage she is wheelchair bound and dependent. dvt prophylaxis Pt not interested in transfer to [facility] at this time. She is hasn't been interested in snf or rehab. But now was considering rehab a little bit if offered by [facility]. sent bacterial cx right wrist(grow staph aureus) and viral cx left wrist 05/11. mssa growing from the right wrist. the left wrist cx was bad sample and really no drainage when cx'ed. mupirocin ordered. discussed with PT and needs to get oob more. continue steroid taper and goal of cessation before d/c home. dropps to 5mg .few areas of outbreak but not to bad. discussed weaning off narcotics. She is using less. If stable/no major skin eruption then will plan for d/c home over the weekend. (2) Vitamin D deficiency Status: Chronic Plan: see above (3) SVT (supraventricular tachycardia) Status: Chronic Plan: s/p eps cont bb (4) Hypophosphatemia Status: Acute Plan: replace (5) Hypokalemia Status: Acute Plan: replace (6) Hypoalbuminemia Status: Chronic Plan: unclear etiology. (7) Urticarial vasculitis Status: Acute Plan: see above (8) Varicella Status: Acute Plan: see above Bay Jaramillo MD May 15, 2016 15:22
[2016-05-15 16:33] VITALS: BP 113/57; PULSE 86; RESP 20; TEMP 98.3; O2SAT 96
[2016-05-15 20:00] VITALS: BP 112/67; PULSE 99; RESP 18; TEMP 98.3; O2SAT 97
[2016-05-15] MEDS: MORPHINE SULFATE 4 MG/ML INJ IV PUSH PRN (21:49)
[2016-05-16] MEDS: ACETAMINOPHEN/HYDROcodone 325 MG/5 MG TAB PO PRN ×4 (00:17→20:57)
[2016-05-16] MEDS: MUPIROCIN 2% OINT 22 GM TUBE TOPICAL SCH ×4 (01:58→20:59)
[2016-05-16 04:00] VITALS: BP 113/58; PULSE 91; RESP 18; TEMP 98; O2SAT 93
[2016-05-16] MEDS: valACYclovir HCL 500 MG TAB PO SCH ×3 (06:42→20:57)
[2016-05-16 08:00] VITALS: BP 127/59; PULSE 63; RESP 16; TEMP 97.3; O2SAT 96
[2016-05-16] MEDS: ENOXAPARIN SODIUM 40 MG/0.4 ML SYRINGE SQ SCH (09:42)
[2016-05-16] MEDS: predniSONE 5 MG TAB PO SCH (09:42)
[2016-05-16] MEDS: CALCIUM/VITAMIN D 250 MG/125 U TAB PO SCH ×2 (09:45→20:57)
[2016-05-16] MEDS: CELECOXIB 200 MG CAP PO SCH (09:46)
[2016-05-16] MEDS: METOPROLOL TARTRATE 25 MG TAB PO SCH ×2 (09:46→18:35)
[2016-05-16] MEDS: PANTOPRAZOLE SOD 40 MG DELAYED RELEASE TAB PO SCH (09:46)
[2016-05-16 12:00] VITALS: BP 112/56; PULSE 91; RESP 18; TEMP 98.1; O2SAT 94
[2016-05-16 14:51] VITALS: BP 113/62; PULSE 97; RESP 18; TEMP 96.9; O2SAT 95
[2016-05-16] MEDS: MORPHINE SULFATE 4 MG/ML INJ IV PUSH PRN ×2 (18:48→23:31)
[2016-05-16 20:00] VITALS: BP 121/61; PULSE 92; RESP 16; TEMP 97.6; O2SAT 95
--- NOTE | 2016-05-16 23:25 | HHI.PR ---
Subjective Remarks denies pain in forearms near the erosive wounds/ no drainage. no f/c. no n/v/d Objective Vitals amado face less heart reg lung cta abd s/nt ext no edema forearm erosions drying. no drainage. no cellulitis. no vesiclular lesions noted. Vital Signs Date Time Temp Pulse Resp B/P Pulse Ox O2 Delivery O2 Flow Rate FiO2 05/16/16 20:00 97.6 92 16 121/61 95 05/16/16 18:53 16 05/16/16 14:51 96.9 97 18 113/62 95 05/16/16 12:00 98.1 91 18 112/56 94 05/16/16 08:00 97.3 63 16 127/59 96 05/16/16 04:00 98.0 91 18 113/58 93 05/15/16 05/15/16 05/16/16 15:00 23:00 07:00 Intake Total 240 ml Balance 240 ml Intake Oral 240 ml # Voids 4 Result Diagram: 05/15/16 0546 05/15/16 0546 A/P Problem List: (1) Inability to walk Status: Acute Plan: Compllicated patient developed rash with arthralgias around 03/05 No definitive diagnosis has been made after extensive evaluation She was admitted 3 times and now 4 since that time. She has been seen and evaluated by [facility] with no specific diagnosis. Since presentation her rash has been very responsive to steroids but quickly returns with severe pain of joints/muscles upon tapering. She has been dependent on high dose steroids for past 2 months and now displays alot of side effects including weight gain/swelling. Now she is having difficulty with ambulation and we have to exclude steroid myopathy. She has had extensive CTD/AI w/up, infectious, and malignancy w/up. She has had 4 skin biopsies and seen by Dermatology. 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 But 3 subsequent biopsies have been negative for autoimmune or immune deposition diseases...and specifically no sign of vasculitis/ctd/blistering diseases, porphurea cut. tarda , dermatitis herpetiformis, sweet syndrome, fungal elements, etc. Her w/up since first admission were findings of svt, elevated cryoglobulins, positive IgM varicella, chronic hypoalbumenemia, low 25,OH vit d and high 1,25 dihydroxyvit d, hypophosphatemia. Long discussion with Dr Preciado. 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 We treated her with valtrex x 2 on admission one and two but her steroid taper was longer. We have decided to place her back her valtrex and continue to wean down the steroids as fast as we can. hold off on cytoxan. aggressively replace her severe vit d deficiency and hope this helps alot of her muscle pains. 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 informally discussed with neurology but we don't believe she need lp at this stage. her bone marrow bx results negative for malignancy Her IgM has trended down to normal from February I think giving support to the varicella theory above. MRI L spine noted and just some mild degenerative dz L4/5 she is in severe pain. provide prn po and iv meds for now. celebrex added. wean down pain meds. repeat some lab w/up and order some additional testing as per orders. she just had ncs/emg at [place]. I reviewed the records sent from from [place]. NCS/ EMG were nml. PT evaluation noted...at this point unclear how quickly her muscle strength may recover with steroid taper.. At this stage she is wheelchair bound and dependent. dvt prophylaxis Pt not interested in transfer to [facility] at this time. She is hasn't been interested in snf or rehab. But now was considering rehab a little bit if offered by [facility]. sent bacterial cx right wrist(grow staph aureus) and viral cx left wrist 05/11. mssa growing from the right wrist. the left wrist cx was bad sample and really no drainage when cx'ed. mupirocin ordered. discussed with PT and needs to get oob more. continue steroid taper and goal of cessation before d/c home. will d/c tomorrow .few areas of outbreak but not to bad. discussed weaning off narcotics. She is using less. If stable/no major skin eruption then will plan for d/c home tomorrow. (2) Vitamin D deficiency Status: Chronic Plan: see above (3) SVT (supraventricular tachycardia) Status: Chronic Plan: s/p eps cont bb (4) Hypophosphatemia Status: Acute Plan: replace (5) Hypokalemia Status: Acute Plan: replace (6) Hypoalbuminemia Status: Chronic Plan: unclear etiology. (7) Urticarial vasculitis Status: Acute Plan: see above (8) Varicella Status: Acute Plan: see above Bay Jaramillo MD May 16, 2016 23:25
[2016-05-17] MEDS: ACETAMINOPHEN/HYDROcodone 325 MG/5 MG TAB PO PRN (01:15)
[2016-05-17 04:00] VITALS: BP 120/60; PULSE 90; RESP 22; TEMP 97.3; O2SAT 95
[2016-05-17] MEDS: valACYclovir HCL 500 MG TAB PO SCH (05:33)
[2016-05-17] MEDS: MORPHINE SULFATE 4 MG/ML INJ IV PUSH PRN (05:35)
[2016-05-17] MEDS: MUPIROCIN 2% OINT 22 GM TUBE TOPICAL SCH (05:35)
[2016-05-17] MEDS ORDERED: NORC5TAB PO (08:10)
[2016-05-17] MEDS ORDERED: OYST250T4 PO (08:10)
[2016-05-17] MEDS ORDERED: VALT500T PO (08:10)
--- NOTE | 2016-05-17 08:11 | HHI.DCPOC ---
Discharge Care Plan Diagnosis: (1) Varicella (2) Vitamin D deficiency (3) Hypophosphatemia (4) Hypokalemia (5) Inability to walk (6) Steroid myopathy (7) MSSA (methicillin susceptible Staphylococcus aureus) infection Goals to Promote Your Health * To prevent worsening of your condition and complications * To maintain your health at the optimal level Directions to Meet Your Goals Take your medications as prescribed Follow your dietary instruction Follow activity as directed Keep your appointments as scheduled Take your immunizations and boosters as scheduled If your symptoms worsen call your PCP, if no PCP go to Urgent Care Center or Emergency Room Smoking is Dangerous to Your Health. Avoid second hand smoke Call the 24-hour hour crisis hotline for domestic abuse at Bay Jaramillo MD May 17, 2016 08:11
[2016-05-17 09:00] VITALS: BP 127/55; PULSE 74; RESP 18; TEMP 97.3; O2SAT 97
[2016-05-17] MEDS: ENOXAPARIN SODIUM 40 MG/0.4 ML SYRINGE SQ SCH (09:55)
[2016-05-17] MEDS: CELECOXIB 200 MG CAP PO SCH (09:56)
[2016-05-17] MEDS: PANTOPRAZOLE SOD 40 MG DELAYED RELEASE TAB PO SCH (09:56)
[2016-05-17] MEDS: METOPROLOL TARTRATE 25 MG TAB PO SCH (09:56)
[2016-05-17] MEDS: CALCIUM/VITAMIN D 250 MG/125 U TAB PO SCH (09:56)
--- NOTE | 2016-05-17 21:33 | HHI.PR ---
Subjective Remarks few small nonvesicular lesion on shoulder/hands. pt scratching at lesions but denies itch. wants to go home. Objective Vitals few patchy/blotchy areas of red lesions on shoulder/nands healing forearm erosions with dry crusts abd s/nt ext no edema Vital Signs Date Time Temp Pulse Resp B/P Pulse Ox O2 Delivery O2 Flow Rate FiO2 05/17/16 09:00 97.3 74 18 127/55 97 05/17/16 04:00 97.3 90 22 120/60 95 05/16/16 05/16/16 05/17/16 15:00 23:00 07:00 Intake Total 480 ml 780 ml Balance 480 ml 780 ml Intake Oral 480 ml 780 ml # Voids 3 2 Result Diagram: 05/15/16 0546 05/15/16 0546 A/P Problem List: (1) Inability to walk Status: Acute Plan: Compllicated patient developed rash with arthralgias around 03/05 No definitive diagnosis has been made after extensive evaluation She was admitted 3 times and now 4 since that time. She has been seen and evaluated by [facility] with no specific diagnosis. Since presentation her rash has been very responsive to steroids but quickly returns with severe pain of joints/muscles upon tapering. She has been dependent on high dose steroids for past 2 months and now displays alot of side effects including weight gain/swelling. Now she is having difficulty with ambulation and we have to exclude steroid myopathy. She has had extensive CTD/AI w/up, infectious, and malignancy w/up. She has had 4 skin biopsies and seen by Dermatology. 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 But 3 subsequent biopsies have been negative for autoimmune or immune deposition diseases...and specifically no sign of vasculitis/ctd/blistering diseases, porphurea cut. tarda , dermatitis herpetiformis, sweet syndrome, fungal elements, etc. Her w/up since first admission were findings of svt, elevated cryoglobulins, positive IgM varicella, chronic hypoalbumenemia, low 25,OH vit d and high 1,25 dihydroxyvit d, hypophosphatemia. Long discussion with Dr Preciado. 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 We treated her with valtrex x 2 on admission one and two but her steroid taper was longer. We have decided to place her back her valtrex and continue to wean down the steroids as fast as we can. hold off on cytoxan. aggressively replace her severe vit d deficiency and hope this helps alot of her muscle pains. 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 informally discussed with neurology but we don't believe she need lp at this stage. her bone marrow bx results negative for malignancy Her IgM has trended down to normal from February I think giving support to the varicella theory above. MRI L spine noted and just some mild degenerative dz L4/5 she is in severe pain. provide prn po and iv meds for now. celebrex added. wean down pain meds. repeat some lab w/up and order some additional testing as per orders. she just had ncs/emg at [place]. I reviewed the records sent from from [place]. NCS/ EMG were nml. PT evaluation noted...at this point unclear how quickly her muscle strength may recover with steroid taper.. At this stage she is wheelchair bound and dependent. dvt prophylaxis Pt not interested in transfer to [facility] at this time. She is hasn't been interested in snf or rehab. sent bacterial cx right wrist(grow staph aureus) and viral cx left wrist 05/11. mssa growing from the right wrist. the left wrist cx was bad sample and really no drainage when cx'ed. mupirocin ordered. discussed with PT and needs to get oob more. stop prednisone. .few areas of outbreak but not to bad. discussed weaning off narcotics. She is using less. discussed with pt/mother keeping in hospital for iv acyclovir for 24hrs vs d/c home off prednisone and 1 more week valtrex. she is more ambulatory and preferred to d/c home. she will be at ongoing risk of skin eruption....If so then I advised she will need to go back to dermatology for possible re biopsy. only other options are refer back to [place] which pt is againsts...vs refer to [facility]. (2) Vitamin D deficiency Status: Chronic Plan: see above (3) SVT (supraventricular tachycardia) Status: Chronic Plan: s/p eps cont bb (4) Hypophosphatemia Status: Acute Plan: replace (5) Hypokalemia Status: Acute Plan: replace (6) Hypoalbuminemia Status: Chronic Plan: unclear etiology. (7) Urticarial vasculitis Status: Acute Plan: see above (8) Varicella Status: Acute Plan: see above Bay Jaramillo MD May 17, 2016 21:33
--- NOTE | 2016-05-20 10:29 | HHI.DS ---
Discharge Summary Admission Date May 05, 2016 at 15:43 Discharge Date: May 17, 2016 Admitting Diagnosis inability to walk (1) Inability to walk Diagnosis: Principal (2) Vitamin D deficiency Diagnosis: Principal (3) SVT (supraventricular tachycardia) Diagnosis: Secondary (4) Hypophosphatemia Diagnosis: Principal (5) Hypokalemia Diagnosis: Principal (6) Hypoalbuminemia Diagnosis: Secondary (7) Urticarial vasculitis Diagnosis: Principal (8) Varicella Diagnosis: Principal Brief History Pt developed rapidly progressive multiform rash with vesicles/bullae/plaque lesions/ nodules and erythema around 03/05-03/06. The rash involved the arms but progressed to ant chest/upper back and later thigh/legs. She failed outpt therapy with bendadryl/prednisone/clinda. Extensive hx taken and no clear culprit but she described a spider bite on finger in January, exposure to mother in law with shingles in either December or January, and a trip to [place] in January. She was admitted to hospital and initial impressions were that some of the lesions could be herpetiform in nature and possible erythema multiforme secondary to a virus.She was placed on iv solumedrol and valtrex. antibiotics were stopped as this was not obviously bacterial. She was on clinda then doxy for short period of time. Her lesions gradually improved and by the time of discharge she just had some blotchy erythematous areas over shoulder and no vesicle or bullae over arms/legs. During that admission her limited AI w/up was unremarkable. We had discharged the patient home before the bx was available and the best answer that we could give at that time was a varicella rash which certainly could have explained much of the rash findings. She was sent home on a week of prednisone taper, triamcinolone 0.1 percent for a week, and she completed the valtrex. 2 days after discharge I received a call from the dermatopathologist in [place]. 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 I called the patient 2 days after discharge and she seemed to be doing fine. but as her prednisone tapered her painful skin lesions rapidly returned on neck/shoulder/behind ears/ arm/abdomen/legs and very painful joints. Raising the prednisone dose back up didn't stop the progression. I called and had pt seen by [place] [facility]. They were concerned about Sweets syndrome and took another bx on right arm. Later that came back negative. She was subsequently readmitted for severe flare of the rash and severe pain of her joints. Again after several days of solumedrol the rash was improved enough to d/c home. During that admission an extensive autoimmune, malignancy w/ up was negative aside from positive cryoglobulin that came back after d/c. also 2 new bx's of left arm taken and pending at d/c. Pt took a trip to [facility] the night of discharge and was in car for long period of time and then on feet alot. When she returned her legs were severely swollen and in alot of pain. She was crawling on floor to get around per and in tears with pain. overnight she developed papular erythematous rash again over neck/chest/shoulders, Pt improved with steroids and sent home on 40mg prednisone and she went to [place] the following day after d/c. That evaluation by [place] [facility] consisted of blood work and emg/ncs. I am not aware of any specific diagnosis made on that evaluation. Pt says [place] told her to increase prednisone back to 60mg daily if the skin lesions returned and she did the week after d/c from the hospital and remains on that high dose. Pt says she tries to taper but quickly develops the painful rash. Now pt is quite swollen from the prednisone and has severe lower extremithy weakness. She went from bone marrow biopsy today and at that visit could barely move her feet/legs. She is using a wheelchair at this point. no loss ov bowel or bladder control. Hospital Course Patient readmitted for 4rd time for rapidly progressive rash presumed to be urticarial vasculitis from recent bx with severe pain and complaints of arthralgia uncontrolled on po meds outpt. On the first admission Pt gave a hx of shingles exposure recently, and had positive IgG and IgM varicella from blood. We treated her for presumed varicella infection with valtrex and also sent her home on prednisone for the rash that improved on iv solumedrol. After first discharge her Bx 03/13 of left arm came back..I discussed with Dermpathologist in [facility] and she felt it most consistent with urticarial vasculitis. I had her evaluated by a local physical education aide and another bx taken of the right arm to confirm the dx as that physical education aide questioned Sweets syndrome. As she tapered on the prednisone the rash and joint pains returned and she was readmitted. On the second admission pt was started back on the iv solumedrol and valtrex with again remarkable improvement in the rash and some improvement of her joint pains. During that admission she had an extensive autoimmune w/up and some infectious and malignancy evaluation as well. During the second admission the second right arm biopsy returned and was negative for vasculitis/ sweets syndrome/AI process or dermatitis herpetiformis. It was recommended by dermatology to obtain new bx's and we took 2 punch bx's of the left arm and sent to dermpathology again. Those 2 skin biopsies were negative for autoimmune dz, CTD, blistering dz, fungal infection, immune deposition process or porphuria. The test results during that hospital stay included essential nml cbc aside from mild elevation of neutrophils probably from steroids. Fluctuating gfr but no renal failure. esr that was 10..then 47..then 17 at discharge. We ordered gustavo x 2, ds-dna, anti barron, anti process description writer, RF, anti CCP,anca's, complement levels, spep, urine immunofixation, hepatitis a,b, c, EBV, CMV, ,anti ssa, anti ssb, immunoglobulin levels all normal. IgE nml. Her albumen levels are low which has been present for many years. She had no apparent proteinuria and no apparent protein losing enteropathy. again celiac in bx was negative/serology neg. No apparent chronic liver disease. Her cryoglobulin level was found to be mildly elevated and unclear if this is related to her rash. We had low suspicion for Lyme disease but she was in [place]. Lyme titers are negative with1/10 IgG bands and 1/3 IgM bands. Pt had a CT C/A/P to exclude lymphadenopathy. There was nonspecific gas collection in left lower abdomen fat layer. Possibly from lovenox injections. Repeat CT abdomen and pelvis showed resolution of the gas collection. After her second discharge patient developed significant lower extremity edema from the steroids. She was readmitted with return of the rash primarily over her neck/shoulders on the 3rd admission with again severe arthralgia complaints. The rash responded quickly to iv solumedrol. We started colchicine during 3rd hospitalization with plans to get steroids tapered off. I didn't feel comfortable continuing colchicine unless Rheumatology confirms a UV diagnosis. We decided to request an evaluation at [facility] to clarify her underlying diagnosis and assist with her treatment plan. She was seen by Rheumatology at [place] and I reviewed there w/up. At this time they have no answer for the patients rash or her pain. She was unable to drop below 60mg on the prednisone and began developing cushingoid appearance and alot of swelling and muscle weakness..possibly the beginning of steroid myopathy. She underwent a bone marrow bx which was negative for malignant process. On her last admission we had a theory that maybe she did have varicella ongoing from her steroid immunosuppression. We weaned the steroid off over about 1 1/2 weeks and placed her back on valtrex. Her rash started to return on the day of d/c when prednisone dropped to 5mg. 24 hrs after d/c her rash has progressed again and she has alot of hive like lesions this time over ner neck and face and back. She called to say it hurts and feels like sunburn. She met with derm again and had a 5th skin bx of her hand. She met again with hematology and we discussed the possibility of mastocytosis. A tryptase level is being pursued. But we are also working on a referral to [facility] for evaluation. She was also found to have severe vit d deficiency. we aggressively replaced it during the admission. Pt Condition on Discharge: Stable Discharge Disposition: Discharge Home Discharge Instructions DIET: Follow Instructions for: As Tolerated, No Restrictions Activities you can perform: Regular-No Restrictions Follow up Referrals: PCP Follow-up - 1 Week New Medications: Calcium Carbonate-Cholecalciferol (Oyster Shell Calcium/Vitamin D) 250-125 Mg- Unit Tab 500 MG PO Q12HR vitamin d deficiency Days 30 Ref 6 TAB Valacyclovir (Valtrex) 500 Mg Tab 1000 MG PO Q8HR varicella Days 7 TAB Continued Medications: Hydrocodone-Acetaminophen ([place]) 5-325 mg Tab 1 TAB PO Q6HR PRN PAIN #30 Ref 0 TAB (This prescription has been renewed) Metoprolol Tartrate (Metoprolol Tartrate) 25 Mg Tab 25 MG PO BID svt #60 Ref 6 TAB Pantoprazole (Pantoprazole) 40 Mg Tab 40 MG PO DAILY prophylaxis #60 TAB Discontinued Medications: Prednisone (Prednisone) 20 Mg Tab 40 MG PO DAILY take 40mg daily until instructed to taper. Inflammation #0 Ref 0 TAB Bay Jaramillo MD May 20, 2016 10:29
== END 2016-05-17 10:44 | disposition home or self-care (01) | DRG 92 ==
LOC: N05A 15:43
PROVIDERS: ADMIT Hospitalist; ATTEND Hospitalist
DX: G72.0 Drug-induced myopathy (principal); I47.1 Supraventricular tachycardia; B01.89 Other varicella complications; E55.9 Vitamin D deficiency, unspecified; E24.2 Drug-induced Cushing's syndrome; E88.09 Other disorders of plasma-protein metabolism, not elsewhere classified; T38.0X5A Adverse effect of glucocorticoids and synthetic analogues, initial encounter; E83.39 Other disorders of phosphorus metabolism; E87.6 Hypokalemia; A49.01 Methicillin susceptible Staphylococcus aureus infection, unspecified site
CPT/HCPCS: 36415; 38221; 72148; 76937; 80048; 80076; 81001; 82175; 82300; 82306; 82550; 82595; 82607; 82652; 82784; 83516; 83655; 83735; 83825; 83970; 84100; 84702; 85007; 85027; 85097; 85652; 86355; 86357; 86359; 86360; 86403; 86703; 86787; 87070; 87147; 87186; 87205; 87529; 87798; 87799; 88305; 88311; 88313; G0364; G0463; J1170; J1650; J2270; J7512

== ENCOUNTER 2016-11-11 18:22 | Observation (INO) | payer OTHER ==
[~2016-11-11 18:22] MED LIST changes: -LACTATED RINGER'S 1000 ML INJ 1,000 ML ONE; -MEPERIDINE HCL 50 MG/ML VIAL ONE; -METHYLERGONOVINE MALEATE 0.2 MG/ML VIAL ONE; -MIDAZOLAM HCL 2 MG/2 ML VIAL ONE; -MORPHINE SULFATE 4 MG/ML INJ ONE; -ONDANSETRON HCL 4 MG/2 ML VIAL IV PUSH ONE; -PROPOFOL 200 MG/20 ML AMP IV ONE; -ceFAZolin INJ 1,000 MG VIAL ONE; -oxyCODONE/ACETAMINOPHEN 5 MG/325 MG TAB ONE
[2016-11-11 18:35] VITALS: BP 123/60; PULSE 88; RESP 14; RESP 18; TEMP 98.9; O2SAT 97
[2016-11-11] MEDS ORDERED: MORPHINE SULFATE 4 MG/ML INJ IV PUSH ONE (18:45)
[2016-11-11] MEDS ORDERED: SODIUM CHLOR 0.9% 250 ML INJ 250 ML IV ONE (18:45)
[2016-11-11] MEDS ORDERED: ONDANSETRON HCL 4 MG/2 ML VIAL IV PUSH ONE (18:45)
--- NOTE | 2016-11-11 18:47 | PD ---
HPI . Vaginal bleeding Chief Complaint: weakness Time Seen by Provider: 18:37 Travel History International Travel<30 days: No Contact w/Intl Traveler<30days: No History of Present Illness HPI [facility] profound vaginal bleeding. This patient was 16 weeks and suffered intrauterine demise. She was treated with Cytotec and aborted the baby this morning. She subsequently had profound vaginal bleeding. She was taken to the [facility] at [facility] for an emergent D&C. She was tachycardic and hypotensive following the procedure. She was subsequently sent to us for evaluation for possible blood trace. Regardless, she will be admitted to observation per Dr. Peters. The bleeding has been profound. Her symptoms are exacerbated by attempts at sitting up. She becomes very nauseous when she sits up. Symptoms have been somewhat relieved with IV fluids. PFSH Past Medical History Autoimmune Disease: No Depression: Yes Heart Rhythm Problems: Yes (TACHYCARDIA) Cancer: No Cardiac Catheterization: Yes Cardiovascular Problems: Yes (TACHYCARDIA) High Cholesterol: No Chest Pain: No Congestive Heart Failure: No Diabetes: No Endocrine: No GERD: No Genitourinary: No Hiatal Hernia: No Immune Disorder: No Musculoskeletal: No Neurologic: No Psychiatric: No Reproductive: No Respiratory: No Ulcer: No : 4 Para: 2 Miscarriage: 1 Past Surgical History AICD: No Arteriovenous Shunt: No Cardiac Surgery: Yes (cardiac cath (2 weeks ago)) Insulin Pump: No Joint Replacement: No Pacemaker: No Social History Alcohol Use: Yes (occ) Tobacco Use: No Substance Use: No Allergies-Medications (Allergen,Severity, Reaction): Coded Allergies: No Known Allergies (Unverified , 03/29/16) Reported Meds & Prescriptions Reported Meds & Active Scripts Active Valtrex (Valacyclovir HCl) 500 Mg Tab 1,000 Mg PO Q8HR 7 Days Oyster Shell Calcium/Vitamin D (Calcium Carbonate-Cholecalciferol) 250-125 Mg- Unit Tab 500 Mg PO Q12HR 30 Days [place] (Hydrocodone-Acetaminophen) 5-325 mg Tab 1 Tab PO Q6HR PRN Pantoprazole (Pantoprazole Sodium) 40 Mg Tab 40 Mg PO DAILY Metoprolol Tartrate 25 Mg Tab 25 Mg PO BID Review of Systems Except as stated in HPI: all other systems reviewed are Neg General / Constitutional: No: Fever, Chills Cardiovascular: No: Chest Pain or Discomfort Respiratory: No: Shortness of Breath Gastrointestinal: Positive: Nausea, Abdominal Pain Genitourinary: Positive: Vaginal Bleeding Physical Exam Narrative GENERAL: Patient is lucid. She has a grimace on her face. SKIN: Pale. Dry. HEAD: Normocephalic/atraumatic. EYES: Pupils are equal. Extraocular movements are intact. ENT: Mouth is pink and moist. NECK: Supple with full range of motion. CARDIOVASCULAR: Regular rate and rhythm. Heart rate is currently in the 70s. RESPIRATORY: Nonlabored respirations. GI/: Abdomen is soft. Suprapubic tenderness. Moderate blood on the external genitalia. MUSCULOSKELETAL: Atraumatic. NEUROLOGICAL: Cranial nerves are intact. Awake and alert and fully oriented. Moving all 4 extremities equally. PSYCHIATRIC: Appropriate mood and affect. Data Data Orders Orders Red Blood Cells (Rbc) (11/11/16 18:37) Sodium Chlor 0.9% 250 Ml Inj (Ns 250 Ml (11/11/16 18:45) Complete Blood Count With Diff (11/11/16 18:37) Basic Metabolic Panel (Bmp) (11/11/16 18:37) Morphine Inj (Morphine Inj) (11/11/16 18:45) Ondansetron Inj (Zofran Inj) (11/11/16 18:45) Type And Screen (11/11/16 18:37) MDM Medical Decision Making Medical Screen Exam Complete: Yes Emergency Medical Condition: Yes Differential Diagnosis Differential diagnosis of weakness includes but is not limited to infection, CVA , electrolyte disturbance, renal failure, hypoglycemia, UTI, ACS, acute blood loss Narrative Course This patient [facility] following an episode of heavy vaginal bleeding. She took Cytotec last night because of intrauterine demise at 16 weeks. She aborted the baby today. She then had profound vaginal bleeding. She has already had a D&C. The plan is to check her H&H and order a transfusion if needed. She is then to be admitted to Dr. Peters as an observation patient. Diagnosis Primary Impression: Vaginal bleeding Admitting Information Admitting Physician Requests: Observation Condition: Stable Ely Elizalde MD Nov 11, 2016 18:47
[2016-11-11 19:26] LABS: AUTOMATED NEUTROPHIL # 11.7 TH/MM3 (1.8-7.7); BASOPHIL # 0.1 TH/MM3 (0-0.2); BASOPHIL % 0.5 % (0.0-2.0); EOSINOPHIL # 0.1 TH/MM3 (0-0.4); EOSINOPHIL % 0.4 % (0.0-4.0); HEMATOCRIT 33.4 % (35.0-46.0); HEMO FLAGS DIFF FINAL; LYMPHOCYTE # 1.1 TH/MM3 (1.0-4.8); MEAN CELL VOLUME 85.3 FL (80.0-100.0); MEAN CORPUSCULAR HEMOGLOBIN 30.1 PG (27.0-34.0); MEAN CORPUSCULAR HGB CONC 35.3 % (32.0-36.0); MONO % 1.8 % (0.0-8.0); NEUT % 89.3 % (16.0-70.0); PLATELET COUNT 251 TH/MM3 (150-450); RED BLOOD COUNT 3.91 MIL/MM3 (4.00-5.30); RED CELL DISTRIBUTION WIDTH 14.8 % (11.6-17.2); WHITE BLOOD COUNT 13.1 TH/MM3 (4.0-11.0)
--- NOTE | 2016-11-11 19:33 | PD ---
Data Data Last Documented VS Vital Signs Date Time Temp Pulse Resp B/P (MAP) Pulse Ox O2 Delivery O2 Flow Rate FiO2 11/11/16 18:35 98.9 88 14 123/60 (81) 97 Orders Orders Red Blood Cells (Rbc) (11/11/16 18:37) Sodium Chlor 0.9% 250 Ml Inj (Ns 250 Ml (11/11/16 18:45) Complete Blood Count With Diff (11/11/16 18:37) Basic Metabolic Panel (Bmp) (11/11/16 18:37) Morphine Inj (Morphine Inj) (11/11/16 18:45) Ondansetron Inj (Zofran Inj) (11/11/16 18:45) Type And Screen (11/11/16 18:37) Admit Order (Ed Use Only) (11/11/16 20:20) Labs Laboratory Tests Test 11/11/16 16:45 11/11/16 19:50 White Blood Count 13.1 TH/MM3 Red Blood Count 3.91 MIL/MM3 Hemoglobin 11.8 GM/DL Hematocrit 33.4 % Mean Corpuscular Volume 85.3 FL Mean Corpuscular Hemoglobin 30.1 PG Mean Corpuscular Hemoglobin Concent 35.3 % Red Cell Distribution Width 14.8 % Platelet Count 251 TH/MM3 Mean Platelet Volume 9.2 FL Neutrophils (%) (Auto) 89.3 % Lymphocytes (%) (Auto) 8.0 % Monocytes (%) (Auto) 1.8 % Eosinophils (%) (Auto) 0.4 % Basophils (%) (Auto) 0.5 % Neutrophils # (Auto) 11.7 TH/MM3 Lymphocytes # (Auto) 1.1 TH/MM3 Monocytes # (Auto) 0.2 TH/MM3 Eosinophils # (Auto) 0.1 TH/MM3 Basophils # (Auto) 0.1 TH/MM3 CBC Comment DIFF FINAL Differential Comment Blood Urea Nitrogen 8 MG/DL Creatinine 0.59 MG/DL Random Glucose 133 MG/DL Calcium Level 8.3 MG/DL Sodium Level 137 MEQ/L Potassium Level 4.0 MEQ/L Chloride Level 107 MEQ/L Carbon Dioxide Level 22.3 MEQ/L Anion Gap 8 MEQ/L Estimat Glomerular Filtration Rate 113 ML/MIN [facility] Medical Record Reviewed: Yes Supervised Visit with MAHENDRA: No Narrative Course During the course of the patients emergency department visit, the patients history, examination, and differential diagnosis were reviewed with the patient. The patient had IV access obtained and blood work sent for analysis. The patient was placed on a illusionist with oximetry and blood pressure monitoring. The patient's case was checked out to me by Dr. Elizalde at the conclusion of her shift. Please see her complete history and physical. The patient was initially provided normal saline IV fluids as a bolus . The patients laboratory studies were reviewed and remarkable for a basic metabolic profile that shows a glucose of 133, calcium 8.3 otherwise unremarkable, CMP is remarkable for a white count of 13.1, hemoglobin 11.8, platelets 251 with neutrophils 89.3 The patients results were discussed with the patient, including the plan of care. I explained that further testing and/ or monitoring is indicated based on the patients history, examination, and/ or laboratory findings. Therefore, I recommended admission for additional evaluation. The patient expressed understanding and was agreeable with this plan. The patient was admitted to the hospital in guarded condition and sent to a bed under the care of Dr. Peters. Physician Communication Physician Communication Dr. Peters called me in the emergency department to discuss the patient's case further after I assumed care from Dr. Elizalde.. The patient's hemoglobin came back at 11.8. The patient will not require blood transfusion at this time , however given the postoperative syncope and lightheaded sensation she did recommend observation for continued IV fluid hydration. Diagnosis Primary Impression: Vaginal bleeding Additional Impression: Syncope Qualified Codes: R55 - Syncope and collapse Admitting Information Admitting Physician Requests: Observation Condition: Stable Nano Olivier MD Nov 11, 2016 19:33
[2016-11-11 20:28] LABS: BICARBONATE 22.3 MEQ/L (21.0-32.0)
[2016-11-11 21:06] VITALS: BP 116/56; PULSE 80; RESP 18; O2SAT 97
[2016-11-11] MEDS ORDERED: ONDANSETRON HCL 4 MG/2 ML VIAL IV PUSH PRN (21:45)
[2016-11-11] MEDS ORDERED: oxyCODONE/ACETAMINOPHEN 5 MG/325 MG TAB PO PRN (21:45)
[2016-11-11 22:44] VITALS: BP 114/56; PULSE 83; RESP 19; TEMP 97.9; O2SAT 98
[2016-11-11 23:43] VITALS: BP 103/54; PULSE 93; RESP 19; TEMP 98; O2SAT 97
[2016-11-12 04:04] VITALS: BP 96/54; PULSE 72; RESP 18; TEMP 98.7; O2SAT 96
[2016-11-12 07:19] VITALS: BP 97/54; PULSE 71; RESP 18; TEMP 98.5; O2SAT 97
--- NOTE | 2016-11-12 09:55 | HHI.PR ---
Subjective Remarks Katie is 41 yo mwf who was diagnosed Wednesday with a 17 week in utero. She was given a script for 200mg cytotec for that night and the am and was to come in Wed in anticipation of admission to L & D for atraumatic delivery, as opposed to a D & E. She called my office mid morning having suddenly passed the fetus in the toilet. Her spouse clipped the cord and placed it in a bag and they came to the office. Upon arrival she proceeded to hemorrhage profusely and the same day surgery center in our building was moblized for a rapid extraction of placenta. She underwent this under general with an EBL of 1000. the placenta was disintegrated; in fragments and may have been part of the etiology of her loss. The procedure was uneventful but she was pale and diaphoretic prior. Post op, she was orthostatic and could not sit or stand. She was transported to our ED for observation. Her Hgb was > 11 but this is spuriously high. It has been ordered this am but not yet drawn. This am, she has good color. She is sitting up with a little dizziness. Her bleeding is negligible. Objective Vital Signs Vital Signs Date Time Temp Pulse Resp B/P (MAP) Pulse Ox O2 Delivery O2 Flow Rate FiO2 11/12/16 07:19 98.5 71 18 97/54 (68) 97 11/12/16 04:04 98.7 72 18 96/54 (68) 96 11/11/16 23:43 98.0 93 19 103/54 (70) 97 11/11/16 22:44 97.9 83 19 114/56 (75) 98 11/11/16 22:13 11/11/16 21:06 80 18 116/56 (76) 97 Room Air 11/11/16 18:35 98.9 88 14 123/60 (81) 97 Result Diagram: 11/11/16 1645 11/11/16 1950 Objective Remarks Chest is clear, regular rate and rhythm. Abdomen is soft and non-distended. perineum fairly dry no clost or continued bleeding. A/P Assessment and Plan Post Op Day 1 Doing well Will not have her wait for second H & H likely would be around 8 hgb. Her underlying condition remains a mystery and will discuss with Dr. Devaras She woudl like to conceive again soon. Will see in office in two weeks. Nunu Peters MD Nov 12, 2016 09:55
--- NOTE | 2016-11-12 09:56 | HHI.DCPOC ---
Discharge Care Plan Report Symptoms to Your Doctor -Temperature above 100.5 degrees -Redness, of incision or excessive or foul smelling drainage -Unusual pain or calf pain -Increased vaginal bleeding -Painful or difficulty urinating -Feelings of extreme sadness or anxiety after 2 weeks Goals to Promote Your Health * To prevent worsening of your condition and complications * To maintain your health at the optimal level Directions to Meet Your Goals Take your medications as prescribed Follow your dietary instruction Follow activity as directed Ensure plenty of rest for recovery Drink fluids for hydration Keep your appointments as scheduled Take your immunizations and boosters as scheduled If your symptoms worsen call your PCP, if no PCP go to Urgent Care Center or Emergency Room Smoking is Dangerous to Your Health. Avoid second hand smoke Call the 24-hour crisis hotline for domestic abuse at Nunu Peters MD Nov 12, 2016 09:56
[2016-11-12] MEDS ORDERED: LACTATED RINGER'S 1000 ML INJ 1,000 ML IV SCH (11:00)
[2016-11-12 12:22] LABS: HEMATOCRIT 29.1 % (35.0-46.0); MEAN CORPUSCULAR HEMOGLOBIN 28.8 PG (27.0-34.0); MEAN CORPUSCULAR HGB CONC 33.5 % (32.0-36.0); PLATELET COUNT 274 TH/MM3 (150-450); RED BLOOD COUNT 3.38 MIL/MM3 (4.00-5.30); RED CELL DISTRIBUTION WIDTH 15.2 % (11.6-17.2); WHITE BLOOD COUNT 11.6 TH/MM3 (4.0-11.0)
[2016-11-12 13:57] LABS: BANDS 4 % (0-6); EOSINOPHILS 1 % (0-4); NEUTROPHIL # MANUAL DIFF 8.6 TH/MM3 (1.8-7.7); POLYS (SEG NEUTROPHILS) 70 % (16-70); WBC DIFF SAMPLE 100
[2016-11-12 13:58] LABS: PLATELET ESTIMATE SMEAR NORMAL (NORMAL); PLATELET MORPHOLOGY NORMAL (NORMAL); SCAN/DIFF FINAL DIFF MANUAL
[2016-11-12 15:06] VITALS: BP 105/52; PULSE 79; RESP 20; TEMP 98.3; O2SAT 97
--- NOTE | 2016-11-12 15:32 | HHI.PR ---
Subjective Remarks Just called Katie's spouse who states she is still dizzy and too weak to ambulate. Objective Vital Signs Vital Signs Date Time Temp Pulse Resp B/P (MAP) Pulse Ox O2 Delivery O2 Flow Rate FiO2 11/12/16 15:06 98.3 79 20 105/52 (69) 97 11/12/16 07:19 98.5 71 18 97/54 (68) 97 11/12/16 04:04 98.7 72 18 96/54 (68) 96 11/11/16 23:43 98.0 93 19 103/54 (70) 97 11/11/16 22:44 97.9 83 19 114/56 (75) 98 11/11/16 22:13 11/11/16 21:06 80 18 116/56 (76) 97 Room Air 11/11/16 18:35 98.9 88 14 123/60 (81) 97 Result Diagram: 11/12/16 1103 11/11/16 1950 Objective Remarks Chest is clear, regular rate and rhythm. Abdomen is soft and non-distended. perineum fairly dry no clost or continued bleeding. A/P Assessment and Plan Post Op Day 1 as 3:30 today Katie remains too weak to stand. Vitals appear stable and Hgb 9.7 unclear why she is still so weak. Will encourage to eat and see how does in next several hours. Nunu Peters MD Nov 12, 2016 15:32
[2016-11-12 16:38] LABS: ALT (GPT) LESS THAN 6 U/L (10-53); ANION GAP 9 MEQ/L (5-15); AST (GOT) 6 U/L (15-37); BICARBONATE 23.5 MEQ/L (21.0-32.0); BLOOD UREA NITROGEN 7 MG/DL (7-18); CHLORIDE 106 MEQ/L (98-107); GLOMERULAR FILTRATION RATE 113 ML/MIN (>89); POTASSIUM 3.1 MEQ/L (3.5-5.1); SODIUM (NA) 138 MEQ/L (136-145)
[2016-11-12 17:19] LABS: ALKALINE PHOSPHATASE 51 U/L (45-117); FERRITIN 48 NG/ML (8-252); TOTAL BILIRUBIN ADULT 0.1 MG/DL (0.2-1.0)
[2016-11-12 20:36] VITALS: BP 124/63; PULSE 78; RESP 18; TEMP 98.5; O2SAT 97
[2016-11-13 00:59] VITALS: BP 126/65; PULSE 79; RESP 18; TEMP 98.2; O2SAT 98
[2016-11-13 04:54] VITALS: BP 110/56; PULSE 67; RESP 18; TEMP 98.2; O2SAT 98
[2016-11-13 08:11] VITALS: BP 102/52; PULSE 77; RESP 16; TEMP 98.5; O2SAT 96
--- NOTE | 2016-11-13 08:35 | HHI.PR ---
MEDICATION AIDE Note Note Pt of Dr. Peters's admitted for observation after heavy bleeding, symptomatic after D&C for miscarriage & D&C at 17 wks gestation Overnight pt feeling improved, able to ambulate, void, tolerate diet. Mild uterine cramping and period-like bleeding but no large clots. Ready for discharge. Has Rx already from Dr. Peters, will plan office f/u in 1-2 wks Pt aware of precautions and will call office/on-call this wknd if any concerns. Lilli Crane MD Nov 13, 2016 08:35
== END 2016-11-13 10:56 | disposition home or self-care (01) ==
LOC: NEPC 18:22 → NEDA 20:21 → NEPFCDU 22:15
PROVIDERS: ADMIT Obstetrics & Gynecology; ATTEND Obstetrics & Gynecology
DX: I95.81 Postprocedural hypotension (principal); O02.1 Missed abortion; N93.9 Abnormal uterine and vaginal bleeding, unspecified; R00.0 Tachycardia, unspecified; E55.9 Vitamin D deficiency, unspecified
CPT/HCPCS: 80048; 80053; 82306; 82607; 82728; 82746; 85007; 85025; 85027; 86850; 86900; 86901; 86920; 96361; 96374; 96375; 99285; G0378; J2270; J2405; J7050; J7120

== ENCOUNTER → 2016-11-11 | Day surgery (SDC) | payer OTHER ==
[~2016-11-11] MED LIST changes: +LACTATED RINGER'S 1000 ML INJ 1,000 ML ONE; +MEPERIDINE HCL 50 MG/ML VIAL ONE; +METHYLERGONOVINE MALEATE 0.2 MG/ML VIAL ONE; +MIDAZOLAM HCL 2 MG/2 ML VIAL ONE; +MORPHINE SULFATE 4 MG/ML INJ ONE; +ONDANSETRON HCL 4 MG/2 ML VIAL IV PUSH ONE; +OYST250T4 PO; -PRED20 PO; +PROPOFOL 200 MG/20 ML AMP IV ONE; +VALT500T PO; +ceFAZolin INJ 1,000 MG VIAL ONE; +oxyCODONE/ACETAMINOPHEN 5 MG/325 MG TAB ONE
--- NOTE | 2016-11-12 09:13 | MP ---
cc: MANA CHAVIS DATE OF SURGERY November 11, 2016 PREOPERATIVE DIAGNOSIS Severe bleeding after spontaneous of 16-week demise. POSTOPERATIVE DIAGNOSIS Severe bleeding after spontaneous of 16-week demise. PROCEDURE Removal of retained placenta. ANESTHESIA General. SURGEON MD Fran FINDINGS Katie came to the office after a dose of Cytotec this morning for a 16-week in utero. She was to have a Cytotec to soften the cervix and then come to the [facility] later this afternoon to be monitored for passage of the 16-week infant. Instead she abruptly passed the infant at home and then came to the office where, upon coming to the office she began to bleed profusely. She was taken up to the [facility] and there prepped for a D&C. She underwent curettage that removed significant placental fragments. The placenta was . PROCEDURE The patient was appraised of the indication for curettage and in an expedient fashion and she and her were taken up to the [facility] where she was prepared for curettage. She was taken to the operating room after review of the consent, placed under general endotracheal anesthesia, prepped and draped in the usual sterile fashion in the dorsal lithotomy position. Examination under anesthesia was performed. The anterior lip of the cervix was grasped with a ring forceps and a large banjo curette was used to gently remove the entirety of the placental fragments. Suction curettage was then performed to make sure that all fragments were removed from the intrauterine cavity. Prior to the curettage, a very large amount of clots were removed from the intrauterine cavity equal to probably 800-1000 cc of clotted blood. This was in addition to the blood that she lost prior to going back. Once the suction curettage was performed, a gentle but thorough final pass with a large banjo curette was performed and then the uterus was massaged as she was given 0.2 mg of Methergine IM and awoken. This allowed her then to have a firm uterus with no further bleeding. She was taken to the recovery room in stable condition. She is known to be Rh-positive. She does have a history of hemorrhage in the past. Mana Chavis MD PPC/SSB /5:45 PM /9:08 AM
== END | disposition home or self-care (01) ==
LOC: ESDC 12:51
PROVIDERS: ATTEND Obstetrics & Gynecology
DX: O03.6 Delayed or excessive hemorrhage following complete or unspecified spontaneous abortion (principal)
CPT/HCPCS: 01965; 59821; 88300; 88305; J0690; J2175; J2210; J2250; J2270; J2405; J3010; J7120; 88307